=== PATIENT | female | born 1940 | race Caucasian/White ===

== ENCOUNTER → 2016-07-20 | Outpatient (CLI) | payer OTHER ==
[2016-06-08 19:46] VITALS: BP 156/79
--- NOTE | 2016-07-20 16:06 | RAD ---
HISTORY: Shortness of breath, history of TB Study: Two-view chest Comparison: CT scan of the chest done December 07, 2014 Findings: There is a moderate fixed hiatal hernia present with an air-fluid level. The trachea is midline. The heart size is normal. 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 There is a thoracolumbar scoliosis present. The krupa ngs and pleural spaces are clear. IMPRESSION: Fixed hiatal hernia. Thoracolumbar scoliosis. No acute cardiopulmonary disease. Reported By:
== END ==
LOC: RAD 10:22
PROVIDERS: ATTEND Nurse Practitioner Family
DX: R06.09 Other forms of dyspnea (principal); Z86.11 Personal history of tuberculosis
CPT/HCPCS: 71020

== ENCOUNTER → 2016-09-11 | Outpatient (CLI) | payer OTHER ==
[2016-06-08 19:46] VITALS: BP 156/79
--- NOTE | 2016-09-11 12:57 | US ---
HISTORY: Right upper quadrant pain. Study: Right upper quadrant abdominal ultrasound Comparison: None available. Technique: Multiple middleton scale and color flow Doppler images of the right upper quadrant were obtain ed. Findings: The liver is normal in echotexture and size. No focal intraparenchymal mass or intrahepatic biliary ductal dilatation can be observed. The gallbladder fails to demonstrate evidence for cholelithiasi s or layering sludge. The common bile duct is unremarkable measuring 4 mm. No pericholecystic flui d or gallbladder wall thickening can be observed. The right kidney appears normal in size without focal parenchymal mass or nephrolithiasis. The righ t kidney measurers 7.9 cm. No hydronephrosis or perirenal fluid can be observed. The pancreas is l argely obscured by overlying bowel gas. IMPRESSION: No sonographic evidence to suggest cholelithiasis or acute cholecystitis. Reported By:
== END ==
LOC: RAD 09:00
PROVIDERS: ATTEND Nurse Practitioner Family
DX: R10.11 Right upper quadrant pain (principal)
CPT/HCPCS: 76705

== ENCOUNTER 2016-09-14 15:45 | Emergency (ER) | payer OTHER ==
[2016-09-14 16:09] VITALS: BP 146/71; BMI 38.0
--- NOTE | 2016-09-14 16:46 | DR.FBACK ---
HPI - Time Seen Time seen: 16:35 - PCP Primary Care Physician: navdeep duggan - Complaint Chief Complaint Doctor Comments: Patient admits to have scoliosis and she she started having more back pain. She has pain medication but is not taking according to prescription. She is taking it once daily usually. Chief Complaint:: patient has been being worked up for her gallbladder with navdeep duggan. 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, Hysterectomy, Ortho Surgery, Tonsillectomy - Family History History of Family Medical Conditions: Yes Family Medical History: Cancer, Hypertension - Social History Does patient currently use any type of tobacco product: No Have you used tobacco products in the last 12 months: No Type of Tobacco Use: None Does any household member use tobacco: No Alcohol Use: None Do you use any recreational Drugs:: No Lives With: Family Lives Where: Home - infectious screening In the last 2 months have you had wt loss of >10#?: NO Have you had fever, night sweats or hemotysis?: No Have you traveled outside the country in the last 6 months?: No Isolation: Standard ROS - Review of Systems Eyes: No Symptoms Reported ENTM: No Symptoms Reported Respiratoy: No Symptoms Reported Cardiovascular: No Symptoms Reported Gastrointestinal/Abdominal: No Symptoms Reported Genitourinary: No Symptoms Reported Neurological: No Symptoms Reported Musculoskeletal: No Symptoms Reported Integumentary: No Symptoms Reported Hematologic/Lymphatic: No Symptoms Reported Endocrine: No Symptoms Reported Psychiatric: No Symptoms Reported All Other Systems: Reviewed and Negative PE - Vitals Vital Signs: Temp Pulse Resp BP Pulse Ox 09/14/16 16:00 98.7 F 85 18 146/71 100 06/08/16 19:41 156/79 - General Limitations: No Limitations General Appearance: Alert, In No Apparent Distress - Head Head Exam: Normal Inspection, Atraumatic - Eyes Eye exam: Normal Appearance, PERRL, EOMI - ENT ENT Exam: Normal Exam - Chest Chest Inspection: Normal Inspection - Respiratory Respiratory Exam: Normal Lung Sounds Bilat Respiratory Exam: Bilateral Clear to Auscultation - Cardiovascular Cardiovascular Exam: Regular Rate, Normal Rhythm - Abdominal Exam Abdominal Exam: Normal Inspection Abdominal Tenderness: negative: RUQ, RLQ, LUQ, LLQ, Epigastrium, Suprapubic, Diffuse, Mild, Moderate, Severe, Other - Genitourinary External Exam: Female: Deferred : Speculum Exam (Female): Deferred : Bimanual Exam (female): Deferred - Extremities Extremities Exam: Normal Inspection, Full ROM - Back Back Exam: Other (thoracic scoliosis) - Neurological Neurological Exam: Alert, Oriented X3, CN II-XII Intact - Psychiatric Psychiatric Exam: Normal Affect - Skin Skin Exam: Warm, Dry, Intact Course - Reevaluation 1st: Unchanged ROR - XRAY XRAY Interpreted by: Radiologist (Chest: Stable with dextroscoliotic curvature and exaggerated thoracic kyphosis. The cardiopericardial silhouette is normal. There is no focal consolidation,pleural effusion or pneumothorax. The lungs are well inflated. Pulmonary vascularity is normal, Imaged osseous structures are intact. Soft tissues are unremarkable. Impression: No acute cardiopulmonary process.) - Diagnosis Discharge Problem: Kyphoscoliosis - Discharge Plan Condition: Stable - Follow ups/Referrals Follow ups/Referrals: ROSALINDA DUGGAN [Primary Care Provider] - 3 days - Instructions
--- NOTE | 2016-09-14 17:10 | RAD ---
CHEST RADIOGRAPHS PA AND LATERAL VIEWS CLINICAL HISTORY: 75-year-old female with right lower chest wall pain. No history of trauma. COMPARISON: Chest radiographs July 20, 2016. FINDINGS: Stable with dextroscoliotic curvature and exaggerated thoracic kyphosis. The cardiopericar dial silhouette is normal. There is no focal consolidation, pleural effusion or pneumothorax. The krupa ngs are well inflated. Pulmonary vascularity is normal. Imaged osseous structures are intact. Soft t issues are unremarkable. IMPRESSION: No acute cardiopulmonary process. Reported By:
== END 2016-09-14 18:20 | disposition home or self-care (01) ==
LOC: ER 15:45
DX: M41.84 Other forms of scoliosis, thoracic region (principal)
CPT/HCPCS: 71020; 99282

== ENCOUNTER 2017-05-28 00:26 | Emergency (ER) | payer OTHER ==
[2017-05-28] MEDS ORDERED: SOLU-Medrol 125 MG VIAL IM ONE (00:57)
[2017-05-28] MEDS ORDERED: TORADOL 60 MG VIAL IM ONE (00:57)
[2017-05-28] MEDS ORDERED: TORADOL 60 MG VIAL ONE (00:59)
[2017-05-28] MEDS ORDERED: SOLU-Medrol 125 MG VIAL ONE (00:59)
--- NOTE | 2017-05-28 01:07 | DR.EXTPAIN ---
HPI - Time seen Time seen: 00:55 - PCP Primary Care Physician: YANNA - HPI Comment HPI Comment: SHE SAID SINCE THEY MISS HER VEIN IN A BLOOD DRAW, THE ENTIRE ARM HURT ON THE RIFGT SIDE. ARM OR FOREARM IS NOT SWOLLEN. BOTH HANDS ARE SWOLLEN AND RED WELL BOTH FEET. HAND SWELLING IS MORE PROMINENT ON RT SIDE. NO SOB. PATIENT IS SCHDULE TO DO FOLLOW UP VISIT THIS SATURDAY WITH SPECIALIST THAT WILL EVALUATE THE CIRCULATION IN HEREXTREMITIES. - Complaint/Symptoms Chief Complaint Doctor Comments: SWELLING AND DISCOLORATION HANDS AND PAIN RIGHT UPPER EXTREMITY. Chief Complaint:: "I HAD SOME BLOOD DRAWN AND THEY MISSED, AND SINCE MY RIGHT ARM HAS BEEN KILLING ME. I SEEN SAUD RAINES TODAY AND SHE SAID THEY PROBABLY HIT A NERVE. BUT ITS KILLING ME AND I NEED SOMETHING FOR PAIN. I HAVE OXYCODONE 5/ 325MG AT HOME BUT IT DIDN'T TOUCH IT THIS AFTERNOON. 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 Surgery, Hysterectomy, Ortho Surgery, Tonsillectomy - Family History History of Family Medical Conditions: Yes Family Medical History: Cancer, Hypertension - Social History Does patient currently use any type of tobacco product: No Have you used tobacco products in the last 12 months: No Type of Tobacco Use: None Does any household member use tobacco: No Alcohol Use: None Do you use any recreational Drugs:: No Lives With: Family Lives Where: Home - infectious screening Have you traveled outside the country in the last 6 months?: No Isolation: Standard ROS - Review of Systems Constitutional: negative: Chills, Fever, Weakness, Fatigue Eyes: negative: Eye Pain, Discharge ENTM: negative: Ear Pain, Nose Discharge, Nose Congestion, Throat Pain Respiratoy: negative: Productive Cough, Short of Breath, Wheezing, Hemoptysis Cardiovascular: Edema. negative: Chest Pain Gastrointestinal/Abdominal: negative: Abdominal Pain, Diarrhea, Nausea, Vomiting Genitourinary: negative: Dysuria, Frequency, Hematuria Neurological: negative: Weakness Musculoskeletal: Muscle Pain Integumentary: No Symptoms Reported Hematologic/Lymphatic: No Symptoms Reported Endocrine: No Symptoms Reported All Other Systems: Reviewed and Negative PE - Vital Signs Vitals: Temperature 98.3 F Pulse Rate 115 Respiratory Rate 16 Blood Pressure 137/67 O2 Sat by Pulse Oximetry 96 - General Limitations: No Limitations General Appearance: Alert - Head Head Exam: Normal Inspection - Eyes Eye exam: Normal Appearance - ENT ENT Exam: Normal External Ear Exam - Neck Neck Exam: Trachea Midline - Chest Chest Inspection: Symmetric Chest Wall Rise - Respiratory Respiratory Exam: Normal Lung Sounds Bilat Respiratory Exam: Bilateral Clear to Auscultation - Cardiovascular Cardiovascular Exam: Regular Rate, Normal Rhythm, Normal Heart Sounds - Abdominal Exam Abdominal Exam: Normal Bowel Sounds, Soft. negative: Tenderness - Extremities Extremities Exam: Tenderness (HANDS WITH DISCOLATION. NO CHANGE IN TEMP. PULSES INTACT.) - Lower Extremities Neurovascular/Tendon Exam: Normal Capillary Refill Gait Exam: Observed and Normal - Back Back Exam: Normal Inspection - Neurological Neurological Exam: Alert, Oriented X3 - Psychiatric Psychiatric Exam: Normal Affect, Normal Mood - Skin Skin Exam: Erythema MDM - Differential Diagnosis Differential Diagnosis: Other (EDEMA, CELLULITIS, NEUROPATHY) Course - Treatment Treatment: SEE ORDERS. IM TORADOL, PAIN IMPROVING. - Reevaluation 1st: Improved - Education/Counseling Education/Counseling: Patient, Education Educated On: Treatment, Diagnosis, Needs for Follow Up - Diagnosis Discharge Problem: Edema extremities, PVD (peripheral vascular disease) - Discharge Plan Disposition: 01 HOME, SELF-CARE Condition: Stable - Follow ups/Referrals Follow ups/Referrals: NFD,None [Primary Care Provider] - 3 days - Instructions Instructions: Peripheral Edema Additional Instructions: RETURN TO ED IF WORSE.
[2017-05-28 01:10] VITALS: BP 137/67; BMI 36.1
== END 2017-05-28 01:51 | disposition home or self-care (01) ==
LOC: ER 00:26
DX: I73.9 Peripheral vascular disease, unspecified (principal); R60.0 Localized edema
CPT/HCPCS: 96372; 99282; J1885; J2930

== ENCOUNTER 2017-08-06 19:30 | Emergency (ER) | payer OTHER ==
[2017-08-06 19:39] VITALS: BP 134/83; BMI 32.3
== END 2017-08-06 21:26 | disposition left against medical advice (07) ==
LOC: ER 19:43
DX: M54.89 Other dorsalgia (principal)
CPT/HCPCS: 99281

== ENCOUNTER 2017-08-07 09:56 | Inpatient (IN) | payer OTHER ==
--- NOTE | 2017-08-07 10:20 | DR.GENAD ---
HPI - PCP Primary Care Physician: ZURI ACEVES JUICE WEIGHER - HPI Comment HPI Comment: GETTING WORSE. HAVING FEVER. CHEST DISCOMFORT PRESENT. - Complaint/Symptoms Chief Complaint Doctors Comments: GENERALIZE WEAKNESS, ANOREXIA, COUGH, CONGESTION AND DEHYDRATION FOR FEW DAYS. Chief Complaint:: EMS WAS CALLED OUT TO PT HAVING DIFFICULTY BREATHING. WHEN THEY ARRIVED PT C/O C/C/C AND DEHYDRATION WITH WEAKNESS. 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, Hysterectomy, Ortho Surgery, Tonsillectomy - Family History History of Family Medical Conditions: Yes Family Medical History: Cancer, Hypertension - Social History Does patient currently use any type of tobacco product: No Have you used tobacco products in the last 12 months: No Type of Tobacco Use: None Do you use any recreational Drugs:: No Lives With: Family Lives Where: Home - infectious screening In the last 2 months have you had wt loss of >10#?: NO Have you had fever, night sweats or hemotysis?: No Have you traveled outside the country in the last 6 months?: No Isolation: Standard ROS - Review of Systems Constitutional: Weakness, Fatigue. negative: Chills, Fever Eyes: No Symptoms Reported ENTM: negative: Ear Pain, Nose Discharge, Nose Congestion, Throat Pain Respiratoy: Non-Productive Cough, Short of Breath (ON EXERTION). negative: Wheezing, Hemoptysis Cardiovascular: Chest Pain. negative: Edema, Palpitations Gastrointestinal/Abdominal: No Symptoms Reported Genitourinary: No Symptoms Reported Neurological: Weakness, Dizziness Musculoskeletal: No Symptoms Reported Integumentary: No Symptoms Reported Hematologic/Lymphatic: No Symptoms Reported Endocrine: No Symptoms Reported All Other Systems: Reviewed and Negative PE - Vital Signs Vitals: Temperature 99.9 F Pulse Rate 116 Respiratory Rate 20 Blood Pressure 158/85 O2 Sat by Pulse Oximetry 96 - General Limitations: No Limitations General Appearance: Alert - Head Head Exam: Normal Inspection - Eyes Eye exam: Normal Appearance - ENT ENT Exam: Normal External Ear Exam External Ear Exam: Normal External Inspection TM/Canal Exam: Bilateral Normal Nose Exam: Normal Nose Exam Mouth Exam: Normal Inspection Throat Exam: Normal Inspection - Neck Neck Exam: Trachea Midline - Chest Chest Inspection: Symmetric Chest Wall Rise - Respiratory Respiratory Exam: Normal Lung Sounds Bilat Respiratory Exam: Bilateral Clear to Auscultation - Cardiovascular Cardiovascular Exam: Regular Rate, Normal Rhythm, Normal Heart Sounds - Abdominal Exam Abdominal Exam: Normal Bowel Sounds, Soft. negative: Tenderness - Extremities Extremities Exam: Normal Inspection - Back Back Exam: Normal Inspection - Neurologic Neurological Exam: Alert, Oriented X3 - Psychiatric Psychiatric Exam: Normal Affect, Normal Mood - Skin Skin Exam: Normal Color MDM - Additional Information Additional Information Obtained From: Family - Differential Diagnosis Differential Diagnosis: GENERALIZE WEAKNESS, PNEUMONIA, UTI, MD Course - Treatment Treatment: SEE ORDERS. - Education/Counseling Education/Counseling: Patient, Family, Education Educated On: Diagnosis, Needs for Follow Up ROR - Labs Reviewed Laboratory Results Reviewed?: Yes Result Diagrams: 08/08/17 05:13 08/08/17 05:13 Laboratory: WBC 9.4 X10^3/uL (3.6-10.0) 08/07/17 10:35 RBC 3.91 X10^6/uL (3.5-5.4) 08/07/17 10:35 Hgb 11.1 g/dL (12.0-16.0) L 08/07/17 10:35 Hct 33.6 % (36.0-47.0) L 08/07/17 10:35 MCV 86.0 fL (80.0-100.0) 08/07/17 10:35 MCH 28.3 pg (27.0-34.0) 08/07/17 10:35 MCHC 32.9 g/dL (33.0-35.0) L 08/07/17 10:35 RDW 14.6 % (11.6-16.5) 08/07/17 10:35 Plt Count 244 X10^3/uL (150.0-450.0) 08/07/17 10:35 MPV 7.4 fL (7.4-11.0) 08/07/17 10:35 Neut % (Auto) 65.3 % (42.0-75.0) 08/07/17 10:35 Lymph % (Auto) 21.4 % (21.0-51.0) 08/07/17 10:35 Dickenson % (Auto) 12.7 % (0.0-13.0) 08/07/17 10:35 Eos % (Auto) 0.2 % (0.9-2.9) L 08/07/17 10:35 Baso % (Auto) 0.4 % (0.2-1.0) 08/07/17 10:35 Neut # (Auto) 6.1 x10^3/uL (2.2-4.8) H 08/07/17 10:35 Lymph # (Auto) 2.0 X10^3/uL (1.3-2.9) 08/07/17 10:35 Dickenson # (Auto) 1.2 x10^3/uL (0.3-0.8) H 08/07/17 10:35 Eos # (Auto) 0.0 x10^3/uL (0.0-0.2) 08/07/17 10:35 Baso # (Auto) 0.0 X10^3/uL (0.0-0.1) 08/07/17 10:35 Absolute Nucleated RBC 0.0 /100WBC 08/07/17 10:35 - XRAY XRAY Interpreted by: Radiologist XRAY Findings: REPORT DISCUSS WITH PATIENT. - EKG Rhythm: NSR (EKG NOTED) - Diagnosis Discharge Problem: Abnormal cardiac enzyme level, Generalized weakness Pneumonia Qualifiers: Pneumonia type: due to unspecified organism Laterality: left Lung location: lower lobe of lung Qualified Code(s): J18.1 - Lobar pneumonia, unspecified organism - Discharge Plan Disposition: ADMITTED INPATIENT Condition: Stable - Follow ups/Referrals - Instructions
[2017-08-07 10:45] LABS: BASOPHILS % (AUTO) 0.4 % (0.2-1.0); EOSINOPHILS % (AUTO) 0.2 % (0.9-2.9); HEMATOCRIT 33.6 % (36.0-47.0); HEMOGLOBIN 11.1 g/dL (12.0-16.0); LYMPHOCYTES % (AUTO) 21.4 % (21.0-51.0); MEAN CORPUSCULAR HEMOGLOBIN 28.3 pg (27.0-34.0); MEAN CORPUSCULAR HGB CONC 32.9 g/dL (33.0-35.0); MEAN PLATELET VOLUME 7.4 fL (7.4-11.0); MONOCYTES # (AUTO) 1.2 x10^3/uL (0.3-0.8); MONOCYTES % (AUTO) 12.7 % (0.0-13.0); NEUTROPHILS # (AUTO) 6.1 x10^3/uL (2.2-4.8); NEUTROPHILS % (AUTO) 65.3 % (42.0-75.0); PLATELET COUNT 244 X10^3/uL (150.0-450.0); RED BLOOD COUNT 3.91 X10^6/uL (3.5-5.4); RED CELL DISTRIBUTION WIDTH 14.6 % (11.6-16.5); WHITE BLOOD COUNT 9.4 X10^3/uL (3.6-10.0)
[2017-08-07 11:00] LABS: BLOOD UREA NITROGEN 9 mg/dL (7-18); CALCIUM 8.9 mg/dL (8.5-10.1); CARBON DIOXIDE 25.4 mmol/L (21-32); CHLORIDE 100 mmol/L (98-107); CREATININE 0.94 mg/dL (0.55-1.02); SODIUM 136 mmol/L (136-145); TROPONIN I 0.09 ng/mL (0-1.5); eGFR BLACK RACES > 60 (>60); eGFR NON BLACK RACES > 60 (>60)
[2017-08-07 11:06] LABS: ALANINE AMINOTRANSFERASE 11 Units/L (12-78); ALBUMIN 2.3 g/dL (3.4-5.0); ALKALINE PHOSPHATASE 83 Units/L (46-116); ASPARTATE AMINO TRANSFERASE 23 Units/L (15-37); COR CA(FOR HYPOALB) 10.3 mg/dL (8.5-10.1); CREATINE KINASE 30 Units/L (26-192); CREATINE KINASE MB 1.8 ng/mL (0-4.0); TOTAL PROTEIN 6.8 g/dL (6.4-8.2)
--- NOTE | 2017-08-07 11:09 | RAD ---
HISTORY: Cough and shortness of breath. Study: Portable chest. Comparison: Chest x-ray dated September 14, 2016. Findings: The trachea is midline. The cardiac silhouette is at the upper limits of normal. Small bilateral pl eural effusions with associated compressive atelectasis versus infiltrate. No obvious pneumothorax. The bony thorax is unremarkable. IMPRESSION: Small bilateral pleural effusions with associated compressive atelectasis versus infiltra te. Reported By:
[2017-08-07 13:00] LABS: LACTIC ACID 1.4 mmol/L (0.4-2.0)
[2017-08-07 13:02] LABS: CKMB % 5.5 % (<4); CREATINE KINASE MB 1.8 ng/mL (0-4.0); TROPONIN I 0.07 ng/mL (0-1.5)
[2017-08-07] MEDS ORDERED: NS 1/2 1000 ML IV 1,000 ML IV ONE ×2 (13:46→20:00)
[2017-08-07] MEDS: NS 1/2 1000 ML IV 1,000 ML IV SCH (13:47)
[2017-08-07] MEDS ORDERED: ROCEPHIN 1 GM IV PREMIX 1 GM/50 ML IV.SOLN. IV ONE (13:50)
[2017-08-07] MEDS ORDERED: SALINE 3% 15 ML NEB TX ONE (14:00)
[2017-08-07] MEDS ORDERED: SALINE 3% 15 ML NEB TX NEB ONE (14:05)
[2017-08-07] MEDS: ROCEPHIN 1 GM IV PREMIX IV SCH (14:47)
[2017-08-07] MEDS: DUONEB 0.5 MG/3 MG NEB SCH ×2 (16:37→21:53)
[2017-08-07] MEDS: ROBITUSSIN DM PO SCH ×2 (17:30→20:43)
[2017-08-07 18:19] LABS: CKMB % 5.5 % (<4); CREATINE KINASE MB 2.1 ng/mL (0-4.0); TROPONIN I 0.07 ng/mL (0-1.5)
[2017-08-07] MEDS ORDERED: PERCOCET TAB 5/325 MG PO PRN (18:37)
[2017-08-07] MEDS: VIBRAMYCIN 100 MG in NS 100 ML IV + SPIKE MINIBAG* 100 ML IV SCH (20:43)
[2017-08-07 23:45] LABS: CKMB % 5.5 % (<4); CREATINE KINASE MB 1.7 ng/mL (0-4.0); TROPONIN I 0.08 ng/mL (0-1.5)
[2017-08-08] MEDS: DUONEB 0.5 MG/3 MG NEB SCH ×6 (00:53→21:12)
[2017-08-08] MEDS: NS 1/2 1000 ML IV 1,000 ML IV SCH ×3 (04:15→19:22)
[2017-08-08] MEDS: NEURONTIN CAP 300 MG PO SCH ×3 (06:01→21:48)
--- NOTE | 2017-08-08 06:07 | RAD ---
HISTORY: Cough, shortness of breath Study: Chest AP portable Comparison: 08/07/2017 Findings: The heart is enlarged. No congestive heart failure is noted. No acute alveolar infiltrates are identi fied. Blunting of left costophrenic angle suggests a small left pleural effusion. The bony thorax is unremarkable. IMPRESSION: Moderate cardiomegaly without congestive heart failure Small left pleural effusion Reported By:
[2017-08-08 06:39] LABS: BASOPHILS % (AUTO) 0.3 % (0.2-1.0); EOSINOPHILS % (AUTO) 0.4 % (0.9-2.9); HEMATOCRIT 30.4 % (36.0-47.0); HEMOGLOBIN 10.3 g/dL (12.0-16.0); LYMPHOCYTES # (AUTO) 2.2 X10^3/uL (1.3-2.9); LYMPHOCYTES % (AUTO) 21.5 % (21.0-51.0); MEAN CORPUSCULAR HGB CONC 33.9 g/dL (33.0-35.0); MEAN CORPUSCULAR VOLUME 85.4 fL (80.0-100.0); MEAN PLATELET VOLUME 7.8 fL (7.4-11.0); MONOCYTES # (AUTO) 1.2 x10^3/uL (0.3-0.8); NEUTROPHILS # (AUTO) 6.7 x10^3/uL (2.2-4.8); NEUTROPHILS % (AUTO) 65.8 % (42.0-75.0); PLATELET COUNT 229 X10^3/uL (150.0-450.0); RED BLOOD COUNT 3.56 X10^6/uL (3.5-5.4); RED CELL DISTRIBUTION WIDTH 14.8 % (11.6-16.5); WHITE BLOOD COUNT 10.2 X10^3/uL (3.6-10.0)
[2017-08-08 06:59] LABS: ALANINE AMINOTRANSFERASE 8 Units/L (12-78); ALKALINE PHOSPHATASE 75 Units/L (46-116); ASPARTATE AMINO TRANSFERASE 21 Units/L (15-37); BLOOD UREA NITROGEN 10 mg/dL (7-18); CALCIUM 8.6 mg/dL (8.5-10.1); CARBON DIOXIDE 23.7 mmol/L (21-32); CHLORIDE 101 mmol/L (98-107); COR CA(FOR HYPOALB) 10.2 mg/dL (8.5-10.1); CREATININE 0.79 mg/dL (0.55-1.02); MAGNESIUM 1.3 mg/dL (1.7-2.9); SODIUM 135 mmol/L (136-145); TOTAL PROTEIN 6.4 g/dL (6.4-8.2); eGFR BLACK RACES > 60 (>60); eGFR NON BLACK RACES > 60 (>60)
[2017-08-08] MEDS ORDERED: LEXAPRO ONE (08:34)
[2017-08-08] MEDS: VIBRAMYCIN 100 MG in NS 100 ML IV + SPIKE MINIBAG* 100 ML IV SCH ×2 (08:49→21:54)
[2017-08-08] MEDS: MICRO K EXTEN CAP 10 MEQ PO SCH ×4 (08:49→21:46)
[2017-08-08] MEDS: ROBITUSSIN DM PO SCH ×4 (08:49→21:48)
[2017-08-08] MEDS: MAG-OX TAB PO SCH (08:50)
[2017-08-08] MEDS: LEXAPRO PO SCH (08:50)
[2017-08-08] MEDS: PriLOSEC PO SCH ×2 (08:50→21:47)
[2017-08-08] MEDS: SYNTHROID 100 mcg TAB PO SCH (08:50)
[2017-08-08] MEDS: HYDROCHLOROTHIAZIDE 25 MG TAB PO SCH (08:50)
[2017-08-08] MEDS: ROCEPHIN 1 GM IV PREMIX IV SCH (08:51)
[2017-08-08] MEDS ORDERED: OMEPRAZOLE 40 MG PO SCH (09:00)
[2017-08-08] MEDS ORDERED: PATIENT'S HOME MEDICATION (Potassium Chloride [Potassium Chloride] 1 TAB) PO SCH (09:00)
[2017-08-08] MEDS ORDERED: PATIENT'S HOME MEDICATION (Escitalopram Oxalate [Escitalopram Oxalate] 1 TAB) PO SCH (09:00)
[2017-08-08] MEDS: DULOXETINE HCL PO SCH (10:28)
[2017-08-08] MEDS: ASPIRIN EC 81 MG PO SCH (12:00)
--- NOTE | 2017-08-08 16:27 | DR.H&P ---
H&P - History & Physical for Day of: H&P Date: 08/07/17 - Chief Complaint Chief Complaint: SHORT OF BREATH, C/C/C - Allergies Allergies/Adverse Reactions: Allergies Allergy/AdvReac Type Severity Reaction Status Date / Time naproxen [From Naprosyn] Allergy Verified 05/28/17 00:35 - History of Present Illness History of Present Illness: IS A 76 YEAR OLD PATIENT OF OURS WHO PRESENTED TO THE ER WITH COMPLAINTS OF SHORTNESS OF BREATH AND DIFFICULTY BREATHING. PATIENT ALSO COMPLAINTED OF COUGH, COLD, AND CONGESTION WELL GENERALIZED WEAKNESS. ON ARRIVAL, VITALS WERE 99.9-116-20-96%-158/85. ABNORMAL LAB VALUES INCLUDE THE FOLLOWING: HGB 11.1, HCT 33.6, ALT 11, CRP 92.00, ALBUMIN 2.3. CARDIAC ENZYMES WITHIN NORMAL LIMITS. BLOOD CULTURES ARE PENDING. A CHEST XRAY WAS OBTAINED AND REVEALED SMALL BILATERAL PLEURAL EFFUSIONS WITH ASSOCIATED COMPRESSIVE ATELECTASIS VERSUS INFILTRATE. EKG REVEALED SINUS TACHYCARDIA WITH HR 115. SHE WAS GIVEN PERCOCET 1 TABLET WELL ROCEPHIN 1GM IV. SHE WAS ADMITTED TO THE HOSPITAL ON THE PNEUMONIA PROTOCOL. WE WILL OBTAIN SERIAL CARDIAC ENZYMES AND EKGS. WE PLAN TO FOLLOW UP WITH AM LABS AND CONTINUE TO MONITOR. 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, Hysterectomy, Ortho Surgery, Tonsillectomy - Family History Family Medical History: Cancer, Hypertension - Social History Does patient currently use any type of tobacco product: No Have you used tobacco products in the last 12 months: No Type of Tobacco Use: None Does any household member use tobacco: No Alcohol Use: None Drug Use: Prescription Drugs - Medications Home Medications: Duloxetine HCl 1 tab PO DAILY 08/07/17 [History Confirmed 08/07/17] Escitalopram Oxalate 1 tab PO DAILY 08/07/17 [History Confirmed 08/07/17] Hydrochlorothiazide 1 tab PO DAILY 08/07/17 [History Confirmed 08/07/17] Levothyroxine Sodium [SYNTHROID 100 mcg *] 1 tab PO DAILY 08/07/17 [History Confirmed 08/07/17] Magnesium Oxide [MAG-OX TAB 400 MG *] 1 tab PO DAILY 08/07/17 [History Confirmed 08/07/17] Oxycodone HCl/Acetaminophen [Percocet 5-325 mg Tablet] 1 tab PO PRN PRN [History Confirmed 08/07/17] Potassium Chloride 1 tab PO QID 08/07/17 [History Confirmed 08/07/17] - Review of Systems Constitutional: Weakness, Malaise Eyes: No Symptoms Reported ENT: Nose Congestion Respiratory: Cough, Shortness of Breath, Wheezing Cardiovascular: No Symptoms Reported Gastrointestinal: No Symptoms Reported Genitourinary: No Symptoms Reported Musculoskeletal: No Symptoms Reported Skin: No Symptoms Reported Neurological: Weakness - Physical Exam Vital Signs: Temperature 98.8 F Pulse Rate [Right Brachial] 71 Pulse Rate 108 Respiratory Rate 20 Blood Pressure [Right Arm] 121/54 Blood Pressure 158/85 O2 Sat by Pulse Oximetry 97 Oriented: Normal Eyes: Normal Ear: Normal Nose: Normal Throat: Normal Respiratory: Wheezes Throughout Cardiovascular: Tachycardia : Normal Auscultation: Bowel Sounds: Normal Palpation: Normal Tenderness: Normal Skin: Normal Musculoskeletal: Normal Psychiatric: Normal Mood Description: Calm Affect: Normal Speech Pattern: Clear - Assessment/Plan (1) Pneumonia Qualifiers: Pneumonia type: due to unspecified organism Laterality: left Lung location: lower lobe of lung Qualified Code(s): J18.1 - Lobar pneumonia, unspecified organism Status: Acute Plan: DOXYCYCLINE, ROCEPHIN 1GM IV DAILY, SUPPLEMENTAL OXYGEN, ROBITUSSIN, TUSSIONEX, RESPIRATORY TREATMENTS, CONTINUE TO MONITOR (2) Generalized weakness Status: Acute
[2017-08-08] MEDS ORDERED: NS 1/2 1000 ML IV 1,000 ML IV ONE (19:04)
[2017-08-08] MEDS: RESTORIL CAP 30 MG PO SCH (21:47)
[2017-08-08 21:51] LABS: BILIRUBIN,URINE NEGATIVE (NEGATIVE); BLOOD/HEMOGLOBIN,URINE NEGATIVE (NEGATIVE); GLUCOSE, URINE NEGATIVE (NEGATIVE); KETONES,URINE NEGATIVE (NEGATIVE); LEUKOCYTE ESTERASE ,URINE NEGATIVE (NEGATIVE); NITRITES,URINE NEGATIVE (NEGATIVE); PROTEIN,URINE NEGATIVE (NEGATIVE); UROBILINOGEN,URINE NORMAL (NORMAL)
[2017-08-08 21:52] LABS: APPEARANCE,URINE CLEAR (CLEAR); COLOR,URINE YELLOW (YELLOW)
[2017-08-08] MEDS ORDERED: K-LYTE EFFERVESCENT PO PRN (22:46)
[2017-08-08] MEDS ORDERED: K-RIDER 10 MEQ/NS 100 ML 10 MEQ/100 ML BAG IV PRN (22:46)
[2017-08-08] MEDS ORDERED: POTASSIUM CHLORIDE LIQ 20 MEQ UDC PO PRN (22:46)
[2017-08-08] MEDS ORDERED: POTASSIUM CHL 60 MEQ/NS 0.45% 500 ML IV PRN (22:46)
[2017-08-09] MEDS: MAGNESIUM SULFATE 1 GM/100 mL PREMIX 1 GM/100 ML BAG IV PRN ×2 (00:50→03:49)
[2017-08-09] MEDS: DUONEB 0.5 MG/3 MG NEB SCH ×6 (01:35→20:47)
[2017-08-09] MEDS: NEURONTIN CAP 300 MG PO SCH ×3 (05:32→20:59)
--- NOTE | 2017-08-09 05:53 | RAD ---
Examination: AP chest History: Cough, SOB Comparison 08/08/2017 Findings: Stable heart size. The diaphragm surfaces and costophrenic angles are now obscured. Central vascular congestion has increased. No pneumothorax seen. Impression: Increasing bibasal densities consistent with airspace disease and small pleural effusions . The findings are suggestive of CHF; associated inflammatory process may contribute. Reported By:
[2017-08-09 06:08] LABS: BASOPHILS % (AUTO) 0.2 % (0.2-1.0); EOSINOPHILS # (AUTO) 0.1 x10^3/uL (0.0-0.2); HEMATOCRIT 29.7 % (36.0-47.0); LYMPHOCYTES # (AUTO) 2.3 X10^3/uL (1.3-2.9); LYMPHOCYTES % (AUTO) 17.2 % (21.0-51.0); MEAN CORPUSCULAR HEMOGLOBIN 28.3 pg (27.0-34.0); MEAN CORPUSCULAR HGB CONC 33.7 g/dL (33.0-35.0); MEAN CORPUSCULAR VOLUME 84.1 fL (80.0-100.0); MONOCYTES # (AUTO) 1.4 x10^3/uL (0.3-0.8); MONOCYTES % (AUTO) 10.5 % (0.0-13.0); NEUTROPHILS # (AUTO) 9.4 x10^3/uL (2.2-4.8); NEUTROPHILS % (AUTO) 71.1 % (42.0-75.0); PLATELET COUNT 242 X10^3/uL (150.0-450.0); RED BLOOD COUNT 3.53 X10^6/uL (3.5-5.4); RED CELL DISTRIBUTION WIDTH 14.7 % (11.6-16.5); WHITE BLOOD COUNT 13.2 X10^3/uL (3.6-10.0)
[2017-08-09 06:34] LABS: ALANINE AMINOTRANSFERASE 8 Units/L (12-78); ALBUMIN 1.8 g/dL (3.4-5.0); ALKALINE PHOSPHATASE 71 Units/L (46-116); ASPARTATE AMINO TRANSFERASE 27 Units/L (15-37); BLOOD UREA NITROGEN 9 mg/dL (7-18); CALCIUM 8.8 mg/dL (8.5-10.1); CARBON DIOXIDE 27.3 mmol/L (21-32); CHLORIDE 98 mmol/L (98-107); COR CA(FOR HYPOALB) 10.6 mg/dL (8.5-10.1); CREATININE 0.74 mg/dL (0.55-1.02); SODIUM 133 mmol/L (136-145); TOTAL PROTEIN 6.2 g/dL (6.4-8.2); eGFR BLACK RACES > 60 (>60); eGFR NON BLACK RACES > 60 (>60)
[2017-08-09] MEDS ORDERED: LEXAPRO ONE (09:13)
[2017-08-09] MEDS: HYDROCHLOROTHIAZIDE 25 MG TAB PO SCH (09:19)
[2017-08-09] MEDS: ASPIRIN EC 81 MG PO SCH (09:19)
[2017-08-09] MEDS: MICRO K EXTEN CAP 10 MEQ PO SCH ×4 (09:20→20:57)
[2017-08-09] MEDS: ROCEPHIN 1 GM IV PREMIX IV SCH (09:20)
[2017-08-09] MEDS: DULOXETINE HCL PO SCH (09:20)
[2017-08-09] MEDS: MAG-OX TAB PO SCH (09:20)
[2017-08-09] MEDS: LEXAPRO PO SCH (09:20)
[2017-08-09] MEDS: PriLOSEC PO SCH ×2 (09:21→20:58)
[2017-08-09] MEDS: SYNTHROID 100 mcg TAB PO SCH (09:21)
[2017-08-09] MEDS: VIBRAMYCIN 100 MG in NS 100 ML IV + SPIKE MINIBAG* 100 ML IV SCH ×2 (09:21→21:14)
[2017-08-09] MEDS: ROBITUSSIN DM PO SCH ×4 (09:21→20:59)
[2017-08-09] MEDS: LASIX IVP SCH ×2 (11:22→20:56)
[2017-08-09] MEDS ORDERED: CALAN IVP ONE ×2 (15:11→22:15)
[2017-08-09] MEDS ORDERED: MORPHINE SULFATE INJ 2 MG INJ ONE (15:15)
[2017-08-09] MEDS ORDERED: MORPHINE SULFATE INJ 2 MG INJ IVP ONE (15:30)
[2017-08-09 16:04] LABS: CKMB % 4.8 % (<4); CREATINE KINASE MB 1.5 ng/mL (0-4.0); TROPONIN I 0.06 ng/mL (0-1.5)
[2017-08-09] MEDS: NS 1/2 1000 ML IV 1,000 ML IV SCH (16:10)
[2017-08-09 16:52] LABS: BILIRUBIN,URINE NEGATIVE (NEGATIVE); BLOOD/HEMOGLOBIN,URINE NEGATIVE (NEGATIVE); GLUCOSE, URINE NEGATIVE (NEGATIVE); KETONES,URINE NEGATIVE (NEGATIVE); LEUKOCYTE ESTERASE ,URINE NEGATIVE (NEGATIVE); NITRITES,URINE NEGATIVE (NEGATIVE); PROTEIN,URINE NEGATIVE (NEGATIVE); UROBILINOGEN,URINE NORMAL (NORMAL)
[2017-08-09 16:55] LABS: APPEARANCE,URINE CLEAR (CLEAR); COLOR,URINE YELLOW (YELLOW)
--- NOTE | 2017-08-09 19:51 | RAD ---
Chest AP portable Indication: Central line placement Comparison: 08/09/2017 radiograph from earlier Findings: There is left subclavian catheter tip over the SVC. No large pneumothorax seen. Heart size is prominent. There are bilateral effusions. There is increased interstitial markings. Impression: Cardiomegaly, pulmonary edema with effusions, compatible with CHF. New central line proje cts as expected without large pneumothorax Reported By:
[2017-08-09] MEDS: CALAN SR 120 MG PO SCH (20:55)
[2017-08-09] MEDS: RESTORIL CAP 30 MG PO SCH (20:59)
[2017-08-09] MEDS: DOPAMINE IV PREMIX 400 MG/250 ML 400 MG/250 ML BAG IV PRN (22:17)
[2017-08-09 22:40] LABS: CREATINE KINASE 25 Units/L (26-192); CREATINE KINASE MB < 1.0 ng/mL (0-4.0); TROPONIN I 0.13 ng/mL (0-1.5)
[2017-08-10] MEDS ORDERED: NS 1/2 1000 ML IV 1,000 ML IV ONE (03:38)
[2017-08-10 04:44] LABS: BASOPHILS % (AUTO) 0.1 % (0.2-1.0); EOSINOPHILS % (AUTO) 0.3 % (0.9-2.9); HEMATOCRIT 30.7 % (36.0-47.0); HEMOGLOBIN 10.2 g/dL (12.0-16.0); LYMPHOCYTES # (AUTO) 1.9 X10^3/uL (1.3-2.9); LYMPHOCYTES % (AUTO) 12.1 % (21.0-51.0); MEAN CORPUSCULAR HEMOGLOBIN 28.2 pg (27.0-34.0); MEAN CORPUSCULAR HGB CONC 33.3 g/dL (33.0-35.0); MEAN CORPUSCULAR VOLUME 84.8 fL (80.0-100.0); MEAN PLATELET VOLUME 8.1 fL (7.4-11.0); MONOCYTES # (AUTO) 1.6 x10^3/uL (0.3-0.8); MONOCYTES % (AUTO) 10.3 % (0.0-13.0); NEUTROPHILS % (AUTO) 77.2 % (42.0-75.0); PLATELET COUNT 275 X10^3/uL (150.0-450.0); RED BLOOD COUNT 3.62 X10^6/uL (3.5-5.4); RED CELL DISTRIBUTION WIDTH 14.8 % (11.6-16.5); WHITE BLOOD COUNT 15.6 X10^3/uL (3.6-10.0)
[2017-08-10 05:01] LABS: ALANINE AMINOTRANSFERASE 7 Units/L (12-78); ALBUMIN 1.8 g/dL (3.4-5.0); ALKALINE PHOSPHATASE 82 Units/L (46-116); ASPARTATE AMINO TRANSFERASE 22 Units/L (15-37); BLOOD UREA NITROGEN 10 mg/dL (7-18); CARBON DIOXIDE 30.3 mmol/L (21-32); CHLORIDE 97 mmol/L (98-107); CKMB % 5.8 % (<4); COR CA(FOR HYPOALB) 10.8 mg/dL (8.5-10.1); COR NA(FOR HYPERGLY) 134 mmol/L (136-145); CREATINE KINASE 24 Units/L (26-192); CREATINE KINASE MB 1.4 ng/mL (0-4.0); CREATININE 0.95 mg/dL (0.55-1.02); SODIUM 133 mmol/L (136-145); TOTAL PROTEIN 6.6 g/dL (6.4-8.2); TROPONIN I 0.11 ng/mL (0-1.5); eGFR BLACK RACES > 60 (>60); eGFR NON BLACK RACES > 60 (>60)
[2017-08-10] MEDS: NEURONTIN CAP 300 MG PO SCH ×3 (05:43→21:29)
[2017-08-10] MEDS: DOPAMINE IV PREMIX 400 MG/250 ML 400 MG/250 ML BAG IV PRN ×2 (07:28→21:25)
--- NOTE | 2017-08-10 07:43 | RAD ---
HISTORY: Shortness of breath Study: Single-view chest Comparison: Yesterday Findings: The trachea is midline. The cardiac silhouette is enlarged but stable as is a left-sided central meka ous catheter. The lungs demonstrate mild persistent pulmonary vascular congestion with bilateral lay ering effusions.. The bony thorax is unremarkable. IMPRESSION: 1. Stable mild interstitial edema with bibasilar effusions. Reported By:
[2017-08-10] MEDS ORDERED: LEXAPRO ONE (07:59)
[2017-08-10] MEDS: VIBRAMYCIN 100 MG in NS 100 ML IV + SPIKE MINIBAG* 100 ML IV SCH ×2 (08:13→21:27)
[2017-08-10] MEDS: ROCEPHIN 1 GM IV PREMIX IV SCH (08:18)
[2017-08-10] MEDS: LASIX IVP SCH ×2 (08:19→21:25)
[2017-08-10] MEDS: PriLOSEC PO SCH ×2 (08:23→21:28)
[2017-08-10] MEDS: MICRO K EXTEN CAP 10 MEQ PO SCH ×4 (08:23→21:31)
[2017-08-10] MEDS: ASPIRIN EC 81 MG PO SCH (08:23)
[2017-08-10] MEDS: SYNTHROID 100 mcg TAB PO SCH (08:24)
[2017-08-10] MEDS: MAG-OX TAB PO SCH (08:24)
[2017-08-10] MEDS: HYDROCHLOROTHIAZIDE 25 MG TAB PO SCH (08:24)
[2017-08-10] MEDS: NS 1/2 1000 ML IV 1,000 ML IV SCH ×2 (08:25→21:24)
[2017-08-10] MEDS: LEXAPRO PO SCH (08:25)
[2017-08-10] MEDS: ROBITUSSIN DM PO SCH ×4 (08:26→21:31)
[2017-08-10] MEDS: DULOXETINE HCL PO SCH (08:28)
[2017-08-10] MEDS: XOPENEX 1.25 MG/3 ML NEBULE NEB SCH ×4 (08:30→20:29)
[2017-08-10] MEDS: POTASSIUM CHL 40 MEQ/NS 0.45% 500 ML IV PRN ×2 (10:31→21:25)
[2017-08-10] MEDS ORDERED: NS 500 ML IV 500 ML IV ONE (10:39)
[2017-08-10] MEDS: CALAN SR 120 MG PO SCH (14:07)
[2017-08-10] MEDS ORDERED: BUTT CREAM (COMPOUND) ONE (20:10)
--- NOTE | 2017-08-10 20:32 | PCM.PROG ---
Progress Note - Progress Note for Day of Date: 08/08/17 - Subjective Subjective: IS BEING TREATED FOR PNEUMONIA AND SHORTNESS OF BREATH. SHE IS ALERT AND ORIENTED, LYING IN BED ON MORNING ROUNDS. SHE CONTINUES WITH COUGH AND SOB. EXAM REVEALS SCATTERED WHEEZING AND RHONCHI TO BILATERAL LUNG SAL. VITALS STABLE. SHE IS HEMODYNAMICALLY STABLE. CARDIAC ENZYMES HAVE BEEN WITHIN NORMAL LIMITS. TODAYS CHEST XRAY REVEALS MODERATE CARDIOMEGALY WITHOUT CONGESTIVE HEART FAILURE. SMALL LEFT PLEURAL EFFUSION. TODAY, WE WILL HEPLOCK IV FLUIDS AND START LASIX 40MG IV BID. OTHERWISE, WE WILL FOLLOW UP WITH AM LABS AND CONTINUE TO MONITOR PATIENT. - Past Medical Family Social History Past Med/Fam/Surg Hx: No changes since H&P Allergies: Allergies naproxen [From Naprosyn] Allergy (Verified 05/28/17 00:35) - Review of Systems ROS: No change since H&P - Vital Signs and I&O's Vital Signs: Temperature 99.7 F Pulse Rate [Right Brachial] 80 Pulse Rate 75 Respiratory Rate 27 Blood Pressure [Right Arm] 98/51 Blood Pressure 158/85 O2 Sat by Pulse Oximetry 99 Intake and Output: Intake & Output 08/08/17 08/09/17 08/10/17 08/11/17 11:59 11:59 11:59 11:59 Intake Total 5277 391 4832 1342 Output Total 1500 850 Balance 1150 540 722 492 - Physical Exam Oriented: Normal Eyes: Normal Ear: Normal Nose: Normal Throat: Normal Respiratory: Generalized, Wheezes, Rhonchi Cardiovascular: Tachycardia : Normal Auscultation: Bowel Sounds: Normal Palpation: Normal Tenderness: Normal Skin: Normal Musculoskeletal: Normal Psychiatric: Normal Mood Description: Calm Affect: Normal Speech Pattern: Clear, Appropriate - Laboratory and Diagnostics Result Diagrams: 08/10/17 03:40 08/10/17 19:00 Labs: 08/09/17 15:45 Urine,Clean Catch Urine Culture - Preliminary 08/07/17 12:22 Blood Blood Culture - Preliminary 08/07/17 12:20 Blood Blood Culture - Preliminary Laboratory WBC 15.6 X10^3/uL (3.6-10.0) H 08/10/17 03:40 RBC 3.62 X10^6/uL (3.5-5.4) 08/10/17 03:40 Hgb 10.2 g/dL (12.0-16.0) L 08/10/17 03:40 Hct 30.7 % (36.0-47.0) L 08/10/17 03:40 MCV 84.8 fL (80.0-100.0) 08/10/17 03:40 MCH 28.2 pg (27.0-34.0) 08/10/17 03:40 MCHC 33.3 g/dL (33.0-35.0) 08/10/17 03:40 RDW 14.8 % (11.6-16.5) 08/10/17 03:40 Plt Count 275 X10^3/uL (150.0-450.0) 08/10/17 03:40 MPV 8.1 fL (7.4-11.0) 08/10/17 03:40 Neut % (Auto) 77.2 % (42.0-75.0) H 08/10/17 03:40 Lymph % (Auto) 12.1 % (21.0-51.0) L 08/10/17 03:40 Josephine % (Auto) 10.3 % (0.0-13.0) 08/10/17 03:40 Eos % (Auto) 0.3 % (0.9-2.9) L 08/10/17 03:40 Baso % (Auto) 0.1 % (0.2-1.0) L 08/10/17 03:40 Neut # (Auto) 12.0 x10^3/uL (2.2-4.8) H 08/10/17 03:40 Lymph # (Auto) 1.9 X10^3/uL (1.3-2.9) 08/10/17 03:40 Josephine # (Auto) 1.6 x10^3/uL (0.3-0.8) H 08/10/17 03:40 Eos # (Auto) 0.0 x10^3/uL (0.0-0.2) 08/10/17 03:40 Baso # (Auto) 0.0 X10^3/uL (0.0-0.1) 08/10/17 03:40 Absolute Nucleated RBC 0.0 /100WBC 08/10/17 03:40 Sodium 133 mmol/L (136-145) L 08/10/17 03:40 Corrected Sodium 134 mmol/L (136-145) L 08/10/17 03:40 Potassium 3.1 mmol/L (3.5-5.1) L 08/10/17 19:00 Chloride 97 mmol/L (98-107) L 08/10/17 03:40 Carbon Dioxide 30.3 mmol/L (21-32) 08/10/17 03:40 BUN 10 mg/dL (7-18) 08/10/17 03:40 Creatinine 0.95 mg/dL (0.55-1.02) 08/10/17 03:40 Est GFR (MDRD) Af Amer > 60 (>60) 08/10/17 03:40 Est GFR (MDRD) Non-Af > 60 (>60) 08/10/17 03:40 Glucose 140 mg/dL (65-99) H 08/10/17 03:40 Lactic Acid 1.4 mmol/L (0.4-2.0) 08/07/17 10:35 Calcium 9.0 mg/dL (8.5-10.1) 08/10/17 03:40 Corrected Calcium 10.8 mg/dL (8.5-10.1) H 08/10/17 03:40 Magnesium 1.6 mg/dL (1.7-2.9) L 08/10/17 03:40 Total Bilirubin 0.70 mg/dL (0.2-1.0) 08/10/17 03:40 AST 22 Units/L (15-37) 08/10/17 03:40 ALT 7 Units/L (12-78) L 08/10/17 03:40 Alkaline Phosphatase 82 Units/L (46-116) 08/10/17 03:40 Creatine Kinase 24 Units/L (26-192) L 08/10/17 03:40 CK-MB (CK-2) 1.4 ng/mL (0-4.0) 08/10/17 03:40 CK/CKMB % Calc 5.8 % (<4) 08/10/17 03:40 Troponin I 0.11 ng/mL (0-1.5) 08/10/17 03:40 C-Reactive Protein 92.00 mg/L (0-3.0) H 08/07/17 10:35 B-Natriuretic Peptide 1180 pg/mL (0-79) H* 08/10/17 03:40 Total Protein 6.6 g/dL (6.4-8.2) 08/10/17 03:40 Albumin 1.8 g/dL (3.4-5.0) L 08/10/17 03:40 Globulin 4.8 g/dL (2.5-4.5) H 08/10/17 03:40 Albumin/Globulin Ratio 0.4 Ratio (1.1-2.1) L 08/10/17 03:40 Specimen Type Clean catch urine 08/09/17 15:30 Urine Color Yellow (YELLOW) 08/09/17 15:30 Urine Appearance Clear (CLEAR) 08/09/17 15:30 Urine pH 5.0 (5.0 - 8.0) 08/09/17 15:30 Ur Specific [place] 1.010 (1.000-1.030) 08/09/17 15:30 Urine Protein Negative (NEGATIVE) 08/09/17 15:30 Urine Glucose (UA) Negative (NEGATIVE) 08/09/17 15:30 Urine Ketones Negative (NEGATIVE) 08/09/17 15:30 Urine Occult Blood Negative (NEGATIVE) 08/09/17 15:30 Urine Nitrite Negative (NEGATIVE) 08/09/17 15:30 Urine Bilirubin Negative (NEGATIVE) 08/09/17 15:30 Urine Urobilinogen Normal (NORMAL) 08/09/17 15:30 Ur Leukocyte Esterase Negative (NEGATIVE) 08/09/17 15:30 - Plan (1) Pneumonia Status: Acute Qualifiers: Pneumonia type: due to unspecified organism Laterality: left Lung location: lower lobe of lung Qualified Code(s): J18.1 - Lobar pneumonia, unspecified organism Plan: DOXYCYCLINE, ROCEPHIN 1GM IV DAILY, SUPPLEMENTAL OXYGEN, ROBITUSSIN, TUSSIONEX, RESPIRATORY TREATMENTS, CONTINUE TO MONITOR (2) Generalized weakness Status: Acute (3) Congestive heart failure Status: Acute Qualifiers: Heart failure type: unspecified Heart failure chronicity: acute Qualified Code(s): I50.9 - Heart failure, unspecified Plan: LASIX 40MG IV BID, SUPPLEMENTAL OXYGEN, CONTINUE HOME MEDS.
--- NOTE | 2017-08-10 21:12 | PCM.PROG ---
Progress Note - Progress Note for Day of Date: 08/09/17 - Subjective Subjective: IS BEING TREATED FOR PNEUMONIA, CONGESTIVE HEART FAILURE, AND SHORTNESS OF BREATH. SHE IS ALERT AND ORIENTED, LYING IN BED ON MORNING ROUNDS. SHE CONTINUES WITH COUGH AND SOB. EXAM REVEALS SCATTERED WHEEZING AND RHONCHI TO BILATERAL LUNG SAL. HER VITALS TODAY ARE 98.2-112-24-93%-137/73. ABNORMAL LAB VALUES INCLUDE THE FOLLOWING: WBC INCREASED FROM 10.2 TO 13.2, HGB 10.0, HCT 29.7, SODIUM 133, POTASSIUM 3.1, CHLORIDE 97, GLUCOSE 140, MAGNESIUM 1.6, ALT 7, CREATINE KINASE 24, ALBUMIN 1.8, GLOBULIN 4.8. A CHEST XRAY WAS OBTAINED TODAY. IT REVEALED CARDIOMEGALY, PULMONARY EDEMA WITH EFFUSIONS, COMPATIBLE WITH CHF. TODAY, WE WILL CONTINUE WITH IV ANTIBIOTICS, RESPIRATORY TREATMENTS, LASIX, AND SUPPLEMENTAL OXYGEN. OTHERWISE, WE WILL FOLLOW UP WITH AM LABS AND CONTINUE TO MONITOR PATIENT. - Past Medical Family Social History Past Med/Fam/Surg Hx: No changes since H&P Allergies: Allergies naproxen [From Naprosyn] Allergy (Verified 05/28/17 00:35) - Review of Systems ROS: No change since H&P - Vital Signs and I&O's Vital Signs: Temperature 100.3 F Pulse Rate [Right Brachial] 80 Pulse Rate 82 Respiratory Rate 27 Blood Pressure [Right Arm] 109/53 Blood Pressure 158/85 O2 Sat by Pulse Oximetry 99 Intake and Output: Intake & Output 08/08/17 08/09/17 08/10/17 08/11/17 11:59 11:59 11:59 11:59 Intake Total 7644 853 0047 1342 Output Total 1500 850 Balance 1150 540 722 492 - Physical Exam Oriented: Normal Eyes: Normal Ear: Normal Nose: Normal Throat: Normal Respiratory: Generalized, Wheezes, Rhonchi Cardiovascular: Tachycardia : Normal Auscultation: Bowel Sounds: Normal Palpation: Normal Tenderness: Normal Skin: Normal Musculoskeletal: Normal Psychiatric: Normal Mood Description: Calm Affect: Normal Speech Pattern: Clear, Appropriate - Laboratory and Diagnostics Result Diagrams: 08/10/17 03:40 08/10/17 19:00 Labs: 08/09/17 15:45 Urine,Clean Catch Urine Culture - Preliminary 08/07/17 12:22 Blood Blood Culture - Preliminary 08/07/17 12:20 Blood Blood Culture - Preliminary Laboratory WBC 15.6 X10^3/uL (3.6-10.0) H 08/10/17 03:40 RBC 3.62 X10^6/uL (3.5-5.4) 08/10/17 03:40 Hgb 10.2 g/dL (12.0-16.0) L 08/10/17 03:40 Hct 30.7 % (36.0-47.0) L 08/10/17 03:40 MCV 84.8 fL (80.0-100.0) 08/10/17 03:40 MCH 28.2 pg (27.0-34.0) 08/10/17 03:40 MCHC 33.3 g/dL (33.0-35.0) 08/10/17 03:40 RDW 14.8 % (11.6-16.5) 08/10/17 03:40 Plt Count 275 X10^3/uL (150.0-450.0) 08/10/17 03:40 MPV 8.1 fL (7.4-11.0) 08/10/17 03:40 Neut % (Auto) 77.2 % (42.0-75.0) H 08/10/17 03:40 Lymph % (Auto) 12.1 % (21.0-51.0) L 08/10/17 03:40 [place] % (Auto) 10.3 % (0.0-13.0) 08/10/17 03:40 Eos % (Auto) 0.3 % (0.9-2.9) L 08/10/17 03:40 Baso % (Auto) 0.1 % (0.2-1.0) L 08/10/17 03:40 Neut # (Auto) 12.0 x10^3/uL (2.2-4.8) H 08/10/17 03:40 Lymph # (Auto) 1.9 X10^3/uL (1.3-2.9) 08/10/17 03:40 [place] # (Auto) 1.6 x10^3/uL (0.3-0.8) H 08/10/17 03:40 Eos # (Auto) 0.0 x10^3/uL (0.0-0.2) 08/10/17 03:40 Baso # (Auto) 0.0 X10^3/uL (0.0-0.1) 08/10/17 03:40 Absolute Nucleated RBC 0.0 /100WBC 08/10/17 03:40 Sodium 133 mmol/L (136-145) L 08/10/17 03:40 Corrected Sodium 134 mmol/L (136-145) L 08/10/17 03:40 Potassium 3.1 mmol/L (3.5-5.1) L 08/10/17 19:00 Chloride 97 mmol/L (98-107) L 08/10/17 03:40 Carbon Dioxide 30.3 mmol/L (21-32) 08/10/17 03:40 BUN 10 mg/dL (7-18) 08/10/17 03:40 Creatinine 0.95 mg/dL (0.55-1.02) 08/10/17 03:40 Est GFR (MDRD) Af Amer > 60 (>60) 08/10/17 03:40 Est GFR (MDRD) Non-Af > 60 (>60) 08/10/17 03:40 Glucose 140 mg/dL (65-99) H 08/10/17 03:40 Lactic Acid 1.4 mmol/L (0.4-2.0) 08/07/17 10:35 Calcium 9.0 mg/dL (8.5-10.1) 08/10/17 03:40 Corrected Calcium 10.8 mg/dL (8.5-10.1) H 08/10/17 03:40 Magnesium 1.6 mg/dL (1.7-2.9) L 08/10/17 03:40 Total Bilirubin 0.70 mg/dL (0.2-1.0) 08/10/17 03:40 AST 22 Units/L (15-37) 08/10/17 03:40 ALT 7 Units/L (12-78) L 08/10/17 03:40 Alkaline Phosphatase 82 Units/L (46-116) 08/10/17 03:40 Creatine Kinase 24 Units/L (26-192) L 08/10/17 03:40 CK-MB (CK-2) 1.4 ng/mL (0-4.0) 08/10/17 03:40 CK/CKMB % Calc 5.8 % (<4) 08/10/17 03:40 Troponin I 0.11 ng/mL (0-1.5) 08/10/17 03:40 C-Reactive Protein 92.00 mg/L (0-3.0) H 08/07/17 10:35 B-Natriuretic Peptide 1180 pg/mL (0-79) H* 08/10/17 03:40 Total Protein 6.6 g/dL (6.4-8.2) 08/10/17 03:40 Albumin 1.8 g/dL (3.4-5.0) L 08/10/17 03:40 Globulin 4.8 g/dL (2.5-4.5) H 08/10/17 03:40 Albumin/Globulin Ratio 0.4 Ratio (1.1-2.1) L 08/10/17 03:40 Specimen Type Clean catch urine 08/09/17 15:30 Urine Color Yellow (YELLOW) 08/09/17 15:30 Urine Appearance Clear (CLEAR) 08/09/17 15:30 Urine pH 5.0 (5.0 - 8.0) 08/09/17 15:30 Ur Specific [place] 1.010 (1.000-1.030) 08/09/17 15:30 Urine Protein Negative (NEGATIVE) 08/09/17 15:30 Urine Glucose (UA) Negative (NEGATIVE) 08/09/17 15:30 Urine Ketones Negative (NEGATIVE) 08/09/17 15:30 Urine Occult Blood Negative (NEGATIVE) 08/09/17 15:30 Urine Nitrite Negative (NEGATIVE) 08/09/17 15:30 Urine Bilirubin Negative (NEGATIVE) 08/09/17 15:30 Urine Urobilinogen Normal (NORMAL) 08/09/17 15:30 Ur Leukocyte Esterase Negative (NEGATIVE) 08/09/17 15:30 - Plan (1) Pneumonia Status: Acute Qualifiers: Pneumonia type: due to unspecified organism Laterality: left Lung location: lower lobe of lung Qualified Code(s): J18.1 - Lobar pneumonia, unspecified organism Plan: DOXYCYCLINE, ROCEPHIN 1GM IV DAILY, SUPPLEMENTAL OXYGEN, ROBITUSSIN, TUSSIONEX, RESPIRATORY TREATMENTS, CONTINUE TO MONITOR (2) Generalized weakness Status: Acute (3) Congestive heart failure Status: Acute Qualifiers: Heart failure type: unspecified Heart failure chronicity: acute Qualified Code(s): I50.9 - Heart failure, unspecified Plan: LASIX 40MG IV BID, SUPPLEMENTAL OXYGEN, CONTINUE HOME MEDS.
[2017-08-10] MEDS: PERCOCET TAB 5/325 MG PO PRN (21:29)
[2017-08-10] MEDS: RESTORIL CAP 30 MG PO SCH (21:29)
[2017-08-11] MEDS: BUTT CREAM (COMPOUND) TOP PRN (00:40)
[2017-08-11] MEDS: NEURONTIN CAP 300 MG PO SCH ×3 (05:46→21:21)
[2017-08-11 06:14] LABS: HEMOGLOBIN 9.6 g/dL (12.0-16.0); PLATELET COUNT 278 X10^3/uL (150.0-450.0)
[2017-08-11 06:25] LABS: ALANINE AMINOTRANSFERASE 12 Units/L (12-78); ALBUMIN 1.8 g/dL (3.4-5.0); ALKALINE PHOSPHATASE 87 Units/L (46-116); ASPARTATE AMINO TRANSFERASE 48 Units/L (15-37); BLOOD UREA NITROGEN 13 mg/dL (7-18); CALCIUM 9.5 mg/dL (8.5-10.1); CARBON DIOXIDE 29.6 mmol/L (21-32); CHLORIDE 97 mmol/L (98-107); COR CA(FOR HYPOALB) 11.3 mg/dL (8.5-10.1); COR NA(FOR HYPERGLY) 132 mmol/L (136-145); CREATININE 1.02 mg/dL (0.55-1.02); MAGNESIUM 1.5 mg/dL (1.7-2.9); SODIUM 132 mmol/L (136-145); TOTAL PROTEIN 6.6 g/dL (6.4-8.2); eGFR BLACK RACES > 60 (>60); eGFR NON BLACK RACES 56 (>60)
[2017-08-11 06:28] LABS: BASOPHILS % (AUTO) 0.2 % (0.2-1.0); EOSINOPHILS # (AUTO) 0.4 x10^3/uL (0.0-0.2); EOSINOPHILS % (AUTO) 3.3 % (0.9-2.9); HEMATOCRIT 29.2 % (36.0-47.0); LYMPHOCYTES % (AUTO) 16.1 % (21.0-51.0); MEAN CORPUSCULAR HEMOGLOBIN 28.2 pg (27.0-34.0); MEAN CORPUSCULAR VOLUME 85.3 fL (80.0-100.0); MEAN PLATELET VOLUME 7.6 fL (7.4-11.0); MONOCYTES # (AUTO) 1.1 x10^3/uL (0.3-0.8); MONOCYTES % (AUTO) 8.9 % (0.0-13.0); NEUTROPHILS # (AUTO) 8.9 x10^3/uL (2.2-4.8); NEUTROPHILS % (AUTO) 71.5 % (42.0-75.0); RED BLOOD COUNT 3.42 X10^6/uL (3.5-5.4); RED CELL DISTRIBUTION WIDTH 14.9 % (11.6-16.5); WHITE BLOOD COUNT 12.5 X10^3/uL (3.6-10.0)
[2017-08-11] MEDS ORDERED: LEXAPRO ONE (09:00)
[2017-08-11] MEDS: XOPENEX 1.25 MG/3 ML NEBULE NEB SCH ×3 (09:13→16:28)
[2017-08-11] MEDS: ROCEPHIN 1 GM IV PREMIX IV SCH (10:01)
[2017-08-11] MEDS: ASPIRIN EC 81 MG PO SCH (10:04)
[2017-08-11] MEDS: HYDROCHLOROTHIAZIDE 25 MG TAB PO SCH (10:04)
[2017-08-11] MEDS: DULOXETINE HCL PO SCH (10:05)
[2017-08-11] MEDS: CALAN SR 120 MG PO SCH (10:05)
[2017-08-11] MEDS: MICRO K EXTEN CAP 10 MEQ PO SCH ×4 (10:05→21:19)
[2017-08-11] MEDS: LEXAPRO PO SCH (10:06)
[2017-08-11] MEDS: MAG-OX TAB PO SCH (10:06)
[2017-08-11] MEDS: ROBITUSSIN DM PO SCH ×4 (10:07→21:21)
[2017-08-11] MEDS: SYNTHROID 100 mcg TAB PO SCH (10:07)
[2017-08-11] MEDS ORDERED: ALBUMIN HUMAN 25%- 100ML 100 ML IV ONE (10:30)
[2017-08-11] MEDS ORDERED: FORTAZ or TAZICEF INJ ONE (10:31)
[2017-08-11] MEDS: PriLOSEC PO SCH ×2 (10:34→21:21)
[2017-08-11] MEDS: ALBUMIN HUMAN 25%- 100ML 100 ML IV SCH (10:34)
[2017-08-11] MEDS ORDERED: NS 100 ML IV + SPIKE MINIBAG* 100 ML IV ONE (10:54)
[2017-08-11] MEDS: FORTAZ or TAZICEF INJ 1 GM in NS 100 ML IV + SPIKE MINIBAG* 100 ML IV SCH ×3 (11:34→22:05)
--- NOTE | 2017-08-11 12:30 | PCM.PROG ---
Progress Note - Progress Note for Day of Date: 08/10/17 - Subjective Subjective: IS BEING TREATED FOR PNEUMONIA, CONGESTIVE HEART FAILURE, AND SHORTNESS OF BREATH. SHE WAS TO THE INTENSIVE CARE UNIT YESTERDAY AFTER AN EKG CONFIRMED SVT. STAFF REPORTS THAT PATIENT WAS RETURNING TO BED WHEN SHE BEGAN FEELING SHORT OF BREATH AND LIKE HER HEART WAS RACING. TELEMETRY WAS APPLIED AND REVEALED HEART RATE IN THE 200s. SHE ALSO COMPLAINTED OF A SEVERE HEADACHE AND CHEST PAIN. SHE WAS GIVEN VERAPAMIL. LAST NIGHT, SHE HAD ANOTHER EPISODE OF SVT. SHE WAS GIVEN VERAPAMIL 5MG IV X 1 DOSE AND STARTED ON A DOPAMINE DRIP DUE TO HYPOTENSION. TODAY, SHE IS ALERT AND ORIENTED, LYING IN BED ON MORNING ROUNDS. SHE CONTINUES WITH SHORNTESS OF BREATH, BUT REPORTS IMPROVEMENT SINCE YESTERDAY. EXAM REVEALS SCATTERED WHEEZING AND RHONCHI TO BILATERAL LUNG SAL. HER VITALS TODAY ARE 98.4-85-24-97%-100/53. ABNORMAL LAB VALUES INCLUDE THE FOLLOWING: WBC 15.6, HGB 10.0 HCT 29.7, SODIUM 133, POTASSIUM 3.1, CHLORIDE 97, GLUCOSE 140, MAGNESIUM 1.6, ALT 7, CREATINE KINASE 24, BNP 1180, ALBUMIN 1.8, GLOBULIN 4.8. A CHEST XRAY WAS OBTAINED TODAY. IT REVEALED STABLE MILD INTERSTITIAL EDEMA WITH BIBASILAR EFFUSIONS. TODAY, WE WILL CONTINUE HER CURRENT PLAN OF CARE AND WEAN OFF OF THE DOPAMINE DRIP. OTHERWISE, WE WILL FOLLOW UP WITH AM LABS AND CONTINUE TO MONITOR PATIENT. - Past Medical Family Social History Past Med/Fam/Surg Hx: No changes since H&P Allergies: Allergies naproxen [From Naprosyn] Allergy (Verified 05/28/17 00:35) - Review of Systems ROS: No change since H&P - Vital Signs and I&O's Vital Signs: Temperature 97.6 F Pulse Rate [Right Brachial] 76 Pulse Rate 80 Respiratory Rate 19 Blood Pressure [Right Arm] 96/53 Blood Pressure 158/85 O2 Sat by Pulse Oximetry 98 Intake and Output: Intake & Output 08/09/17 08/10/17 08/11/17 08/12/17 11:59 11:59 11:59 11:59 Intake Total 540 2222 2508 7 Output Total 1500 1200 Balance 836 748 4304 7 - Physical Exam Oriented: Normal Eyes: Normal Ear: Normal Nose: Normal Throat: Normal Respiratory: Generalized, Wheezes, Rhonchi Cardiovascular: Tachycardia : Normal Auscultation: Bowel Sounds: Normal Palpation: Normal Tenderness: Normal Skin: Normal Musculoskeletal: Normal Psychiatric: Normal Mood Description: Calm Affect: Normal Speech Pattern: Clear, Appropriate - Laboratory and Diagnostics Result Diagrams: 08/11/17 05:42 08/11/17 05:42 Labs: 08/09/17 15:45 Urine,Clean Catch Urine Culture - Final 08/07/17 12:22 Blood Blood Culture - Preliminary 08/07/17 12:20 Blood Blood Culture - Preliminary Laboratory WBC 12.5 X10^3/uL (3.6-10.0) H 08/11/17 05:42 RBC 3.42 X10^6/uL (3.5-5.4) L 08/11/17 05:42 Hgb 9.6 g/dL (12.0-16.0) L 08/11/17 05:42 Hct 29.2 % (36.0-47.0) L 08/11/17 05:42 MCV 85.3 fL (80.0-100.0) 08/11/17 05:42 MCH 28.2 pg (27.0-34.0) 08/11/17 05:42 MCHC 33.0 g/dL (33.0-35.0) 08/11/17 05:42 RDW 14.9 % (11.6-16.5) 08/11/17 05:42 Plt Count 278 X10^3/uL (150.0-450.0) 08/11/17 05:42 MPV 7.6 fL (7.4-11.0) 08/11/17 05:42 Neut % (Auto) 71.5 % (42.0-75.0) 08/11/17 05:42 Lymph % (Auto) 16.1 % (21.0-51.0) L 08/11/17 05:42 [place] % (Auto) 8.9 % (0.0-13.0) 08/11/17 05:42 Eos % (Auto) 3.3 % (0.9-2.9) H 08/11/17 05:42 Baso % (Auto) 0.2 % (0.2-1.0) 08/11/17 05:42 Neut # (Auto) 8.9 x10^3/uL (2.2-4.8) H 08/11/17 05:42 Lymph # (Auto) 2.0 X10^3/uL (1.3-2.9) 08/11/17 05:42 [place] # (Auto) 1.1 x10^3/uL (0.3-0.8) H 08/11/17 05:42 Eos # (Auto) 0.4 x10^3/uL (0.0-0.2) H 08/11/17 05:42 Baso # (Auto) 0.0 X10^3/uL (0.0-0.1) 08/11/17 05:42 Absolute Nucleated RBC 0.0 /100WBC 08/11/17 05:42 Sodium 132 mmol/L (136-145) L 08/11/17 05:42 Corrected Sodium 132 mmol/L (136-145) L 08/11/17 05:42 Potassium 4.1 mmol/L (3.5-5.1) 08/11/17 05:42 Chloride 97 mmol/L (98-107) L 08/11/17 05:42 Carbon Dioxide 29.6 mmol/L (21-32) 08/11/17 05:42 BUN 13 mg/dL (7-18) 08/11/17 05:42 Creatinine 1.02 mg/dL (0.55-1.02) 08/11/17 05:42 Est GFR (MDRD) Af Amer > 60 (>60) 08/11/17 05:42 Est GFR (MDRD) Non-Af 56 (>60) L 08/11/17 05:42 Glucose 114 mg/dL (65-99) H 08/11/17 05:42 Lactic Acid 1.4 mmol/L (0.4-2.0) 08/07/17 10:35 Calcium 9.5 mg/dL (8.5-10.1) 08/11/17 05:42 Corrected Calcium 11.3 mg/dL (8.5-10.1) H 08/11/17 05:42 Magnesium 1.5 mg/dL (1.7-2.9) L 08/11/17 05:42 Total Bilirubin 0.50 mg/dL (0.2-1.0) 08/11/17 05:42 AST 48 Units/L (15-37) H 08/11/17 05:42 ALT 12 Units/L (12-78) 08/11/17 05:42 Alkaline Phosphatase 87 Units/L (46-116) 08/11/17 05:42 Creatine Kinase 24 Units/L (26-192) L 08/10/17 03:40 CK-MB (CK-2) 1.4 ng/mL (0-4.0) 08/10/17 03:40 CK/CKMB % Calc 5.8 % (<4) 08/10/17 03:40 Troponin I 0.11 ng/mL (0-1.5) 08/10/17 03:40 C-Reactive Protein 92.00 mg/L (0-3.0) H 08/07/17 10:35 B-Natriuretic Peptide 1180 pg/mL (0-79) H* 08/10/17 03:40 Total Protein 6.6 g/dL (6.4-8.2) 08/11/17 05:42 Albumin 1.8 g/dL (3.4-5.0) L 08/11/17 05:42 Globulin 4.8 g/dL (2.5-4.5) H 08/11/17 05:42 Albumin/Globulin Ratio 0.4 Ratio (1.1-2.1) L 08/11/17 05:42 Specimen Type Clean catch urine 08/09/17 15:30 Urine Color Yellow (YELLOW) 08/09/17 15:30 Urine Appearance Clear (CLEAR) 08/09/17 15:30 Urine pH 5.0 (5.0 - 8.0) 08/09/17 15:30 Ur Specific [place] 1.010 (1.000-1.030) 08/09/17 15:30 Urine Protein Negative (NEGATIVE) 08/09/17 15:30 Urine Glucose (UA) Negative (NEGATIVE) 08/09/17 15:30 Urine Ketones Negative (NEGATIVE) 08/09/17 15:30 Urine Occult Blood Negative (NEGATIVE) 08/09/17 15:30 Urine Nitrite Negative (NEGATIVE) 08/09/17 15:30 Urine Bilirubin Negative (NEGATIVE) 08/09/17 15:30 Urine Urobilinogen Normal (NORMAL) 08/09/17 15:30 Ur Leukocyte Esterase Negative (NEGATIVE) 08/09/17 15:30 - Plan (1) Pneumonia Status: Acute Qualifiers: Pneumonia type: due to unspecified organism Laterality: left Lung location: lower lobe of lung Qualified Code(s): J18.1 - Lobar pneumonia, unspecified organism Plan: DOXYCYCLINE, ROCEPHIN 1GM IV DAILY, SUPPLEMENTAL OXYGEN, ROBITUSSIN, TUSSIONEX, RESPIRATORY TREATMENTS, CONTINUE TO MONITOR (2) Generalized weakness Status: Acute (3) Congestive heart failure Status: Acute Qualifiers: Heart failure type: unspecified Heart failure chronicity: acute Qualified Code(s): I50.9 - Heart failure, unspecified Plan: LASIX 40MG IV BID, SUPPLEMENTAL OXYGEN, CONTINUE HOME MEDS. (4) Tachycardia Status: Acute Plan: [id number] PO DIALY, CONTINUE TO MONITOR (5) Hypotension Status: Acute Qualifiers: Hypotension type: unspecified hypotension type Qualified Code(s): I95.9 - Hypotension, unspecified Plan: DOPAMINE DRIP, CONTINUE TO MONITOR
[2017-08-11] MEDS: LEVAQUIN PREMIX IV 750 MG 750 MG/150 ML BAG IV SCH (12:34)
--- NOTE | 2017-08-11 14:55 | PCM.PROG ---
Progress Note - Progress Note for Day of Date: 08/11/17 - Subjective Subjective: IS BEING TREATED FOR PNEUMONIA, CONGESTIVE HEART FAILURE, AND SHORTNESS OF BREATH. TODAY, SHE IS ALERT AND ORIENTED, LYING IN BED ON MORNING ROUNDS. SHE CONTINUES WITH SHORTNESS OF BREATH, BUT REPORTS IMPROVEMENT SINCE YESTERDAY. EXAM REVEALS SCATTERED WHEEZING AND RHONCHI TO BILATERAL LUNG SAL. EDGE DRUMMER REVEALS NORMAL SINUS RHYTHM. HEART RATE HAS REMAINED IN THE 70S THROUGHOUT THE NIGHT. HER VITALS TODAY ARE 97.6-76-19-97%-96/53. ABNORMAL LAB VALUES INCLUDE THE FOLLOWING: WBC 12.5, RBC 3.42, HGB 9.6, HCT 29.2 , SODIUM 132, CHLORIDE 97, GLUCOSE 114, MAGNESIUM 1.5, AST 48, ALBUMIN 1.8, GLOBULIN 4.8. STAFF WAS UNABLE TO WEAN OFF OF DOPAMINE DUE TO BLOOD PRESSURE DROPPING. TODAY, WE WILL HOLD HER LASIX AND START ALBUMIN. WE WILL CONTINUE HER CURRENT PLAN OF CARE AND CONTINUE TO TRY WEANING OFF OF THE DOPAMINE DRIP. OTHERWISE, WE WILL FOLLOW UP WITH AM LABS AND CONTINUE TO MONITOR PATIENT. - Past Medical Family Social History Past Med/Fam/Surg Hx: No changes since H&P Allergies: Allergies naproxen [From Naprosyn] Allergy (Verified 05/28/17 00:35) - Review of Systems ROS: No change since H&P - Vital Signs and I&O's Vital Signs: Temperature 97.9 F Pulse Rate [Right Brachial] 83 Pulse Rate 80 Respiratory Rate 20 Blood Pressure [Right Arm] 95/50 Blood Pressure 158/85 O2 Sat by Pulse Oximetry 99 Intake and Output: Intake & Output 08/09/17 08/10/17 08/11/17 08/12/17 11:59 11:59 11:59 11:59 Intake Total 540 2222 2508 7 Output Total 1500 1200 Balance 084 981 8377 7 - Physical Exam Oriented: Normal Eyes: Normal Ear: Normal Nose: Normal Throat: Normal Respiratory: Generalized, Wheezes, Rhonchi Cardiovascular: Tachycardia : Normal Auscultation: Bowel Sounds: Normal Palpation: Normal Tenderness: Normal Skin: Normal Musculoskeletal: Normal Psychiatric: Normal Mood Description: Calm Affect: Normal Speech Pattern: Clear, Appropriate - Laboratory and Diagnostics Result Diagrams: 08/11/17 05:42 08/11/17 05:42 Labs: 08/09/17 15:45 Urine,Clean Catch Urine Culture - Final 08/07/17 12:22 Blood Blood Culture - Preliminary 08/07/17 12:20 Blood Blood Culture - Preliminary Laboratory WBC 12.5 X10^3/uL (3.6-10.0) H 08/11/17 05:42 RBC 3.42 X10^6/uL (3.5-5.4) L 08/11/17 05:42 Hgb 9.6 g/dL (12.0-16.0) L 08/11/17 05:42 Hct 29.2 % (36.0-47.0) L 08/11/17 05:42 MCV 85.3 fL (80.0-100.0) 08/11/17 05:42 MCH 28.2 pg (27.0-34.0) 08/11/17 05:42 MCHC 33.0 g/dL (33.0-35.0) 08/11/17 05:42 RDW 14.9 % (11.6-16.5) 08/11/17 05:42 Plt Count 278 X10^3/uL (150.0-450.0) 08/11/17 05:42 MPV 7.6 fL (7.4-11.0) 08/11/17 05:42 Neut % (Auto) 71.5 % (42.0-75.0) 08/11/17 05:42 Lymph % (Auto) 16.1 % (21.0-51.0) L 08/11/17 05:42 [place] % (Auto) 8.9 % (0.0-13.0) 08/11/17 05:42 Eos % (Auto) 3.3 % (0.9-2.9) H 08/11/17 05:42 Baso % (Auto) 0.2 % (0.2-1.0) 08/11/17 05:42 Neut # (Auto) 8.9 x10^3/uL (2.2-4.8) H 08/11/17 05:42 Lymph # (Auto) 2.0 X10^3/uL (1.3-2.9) 08/11/17 05:42 [place] # (Auto) 1.1 x10^3/uL (0.3-0.8) H 08/11/17 05:42 Eos # (Auto) 0.4 x10^3/uL (0.0-0.2) H 08/11/17 05:42 Baso # (Auto) 0.0 X10^3/uL (0.0-0.1) 08/11/17 05:42 Absolute Nucleated RBC 0.0 /100WBC 08/11/17 05:42 Sodium 132 mmol/L (136-145) L 08/11/17 05:42 Corrected Sodium 132 mmol/L (136-145) L 08/11/17 05:42 Potassium 4.1 mmol/L (3.5-5.1) 08/11/17 05:42 Chloride 97 mmol/L (98-107) L 08/11/17 05:42 Carbon Dioxide 29.6 mmol/L (21-32) 08/11/17 05:42 BUN 13 mg/dL (7-18) 08/11/17 05:42 Creatinine 1.02 mg/dL (0.55-1.02) 08/11/17 05:42 Est GFR (MDRD) Af Amer > 60 (>60) 08/11/17 05:42 Est GFR (MDRD) Non-Af 56 (>60) L 08/11/17 05:42 Glucose 114 mg/dL (65-99) H 08/11/17 05:42 Lactic Acid 1.4 mmol/L (0.4-2.0) 08/07/17 10:35 Calcium 9.5 mg/dL (8.5-10.1) 08/11/17 05:42 Corrected Calcium 11.3 mg/dL (8.5-10.1) H 08/11/17 05:42 Magnesium 1.5 mg/dL (1.7-2.9) L 08/11/17 05:42 Total Bilirubin 0.50 mg/dL (0.2-1.0) 08/11/17 05:42 AST 48 Units/L (15-37) H 08/11/17 05:42 ALT 12 Units/L (12-78) 08/11/17 05:42 Alkaline Phosphatase 87 Units/L (46-116) 08/11/17 05:42 Creatine Kinase 24 Units/L (26-192) L 08/10/17 03:40 CK-MB (CK-2) 1.4 ng/mL (0-4.0) 08/10/17 03:40 CK/CKMB % Calc 5.8 % (<4) 08/10/17 03:40 Troponin I 0.11 ng/mL (0-1.5) 08/10/17 03:40 C-Reactive Protein 92.00 mg/L (0-3.0) H 08/07/17 10:35 B-Natriuretic Peptide 1180 pg/mL (0-79) H* 08/10/17 03:40 Total Protein 6.6 g/dL (6.4-8.2) 08/11/17 05:42 Albumin 1.8 g/dL (3.4-5.0) L 08/11/17 05:42 Globulin 4.8 g/dL (2.5-4.5) H 08/11/17 05:42 Albumin/Globulin Ratio 0.4 Ratio (1.1-2.1) L 08/11/17 05:42 Specimen Type Clean catch urine 08/09/17 15:30 Urine Color Yellow (YELLOW) 08/09/17 15:30 Urine Appearance Clear (CLEAR) 08/09/17 15:30 Urine pH 5.0 (5.0 - 8.0) 08/09/17 15:30 Ur Specific [place] 1.010 (1.000-1.030) 08/09/17 15:30 Urine Protein Negative (NEGATIVE) 08/09/17 15:30 Urine Glucose (UA) Negative (NEGATIVE) 08/09/17 15:30 Urine Ketones Negative (NEGATIVE) 08/09/17 15:30 Urine Occult Blood Negative (NEGATIVE) 08/09/17 15:30 Urine Nitrite Negative (NEGATIVE) 08/09/17 15:30 Urine Bilirubin Negative (NEGATIVE) 08/09/17 15:30 Urine Urobilinogen Normal (NORMAL) 08/09/17 15:30 Ur Leukocyte Esterase Negative (NEGATIVE) 08/09/17 15:30 - Plan (1) Pneumonia Status: Acute Qualifiers: Pneumonia type: due to unspecified organism Laterality: left Lung location: lower lobe of lung Qualified Code(s): J18.1 - Lobar pneumonia, unspecified organism Plan: DOXYCYCLINE, ROCEPHIN 1GM IV DAILY, SUPPLEMENTAL OXYGEN, ROBITUSSIN, TUSSIONEX, RESPIRATORY TREATMENTS, CONTINUE TO MONITOR (2) Generalized weakness Status: Acute (3) Congestive heart failure Status: Acute Qualifiers: Heart failure type: unspecified Heart failure chronicity: acute Qualified Code(s): I50.9 - Heart failure, unspecified Plan: LASIX 40MG IV BID, SUPPLEMENTAL OXYGEN, CONTINUE HOME MEDS. (4) Tachycardia Status: Acute Plan: [id number] PO DIALY, CONTINUE TO MONITOR (5) Hypotension Status: Acute Qualifiers: Hypotension type: unspecified hypotension type Qualified Code(s): I95.9 - Hypotension, unspecified Plan: DOPAMINE DRIP, CONTINUE TO MONITOR
[2017-08-11] MEDS ORDERED: NS 1/2 1000 ML IV 1,000 ML IV ONE (20:56)
[2017-08-11] MEDS: PERCOCET TAB 5/325 MG PO PRN (21:20)
[2017-08-11] MEDS: NS 1/2 1000 ML IV 1,000 ML IV SCH ×2 (21:21)
[2017-08-11] MEDS: RESTORIL CAP 30 MG PO SCH (21:21)
[2017-08-12] MEDS: XOPENEX 1.25 MG/3 ML NEBULE NEB SCH ×5 (01:04→20:47)
[2017-08-12 05:56] LABS: ALANINE AMINOTRANSFERASE 14 Units/L (12-78); ALKALINE PHOSPHATASE 77 Units/L (46-116); ASPARTATE AMINO TRANSFERASE 45 Units/L (15-37); BLOOD UREA NITROGEN 12 mg/dL (7-18); CALCIUM 9.5 mg/dL (8.5-10.1); CARBON DIOXIDE 28.5 mmol/L (21-32); CHLORIDE 100 mmol/L (98-107); COR CA(FOR HYPOALB) 11.1 mg/dL (8.5-10.1); CREATININE 0.89 mg/dL (0.55-1.02); MAGNESIUM 1.5 mg/dL (1.7-2.9); SODIUM 135 mmol/L (136-145); TOTAL PROTEIN 6.2 g/dL (6.4-8.2); eGFR BLACK RACES > 60 (>60); eGFR NON BLACK RACES > 60 (>60)
[2017-08-12] MEDS: FORTAZ or TAZICEF INJ 1 GM in NS 100 ML IV + SPIKE MINIBAG* 100 ML IV SCH ×3 (06:00→21:49)
[2017-08-12] MEDS: NEURONTIN CAP 300 MG PO SCH (06:00)
[2017-08-12 06:04] LABS: BASOPHILS % (AUTO) 0.2 % (0.2-1.0); EOSINOPHILS # (AUTO) 0.3 x10^3/uL (0.0-0.2); HEMATOCRIT 25.6 % (36.0-47.0); HEMOGLOBIN 8.7 g/dL (12.0-16.0); LYMPHOCYTES # (AUTO) 1.4 X10^3/uL (1.3-2.9); LYMPHOCYTES % (AUTO) 14.6 % (21.0-51.0); MEAN CORPUSCULAR HEMOGLOBIN 28.8 pg (27.0-34.0); MEAN CORPUSCULAR HGB CONC 33.9 g/dL (33.0-35.0); MEAN CORPUSCULAR VOLUME 84.8 fL (80.0-100.0); MEAN PLATELET VOLUME 7.9 fL (7.4-11.0); MONOCYTES # (AUTO) 0.9 x10^3/uL (0.3-0.8); NEUTROPHILS # (AUTO) 7.2 x10^3/uL (2.2-4.8); NEUTROPHILS % (AUTO) 73.2 % (42.0-75.0); PLATELET COUNT 242 X10^3/uL (150.0-450.0); RED BLOOD COUNT 3.02 X10^6/uL (3.5-5.4); RED CELL DISTRIBUTION WIDTH 14.8 % (11.6-16.5); WHITE BLOOD COUNT 9.8 X10^3/uL (3.6-10.0)
[2017-08-12] MEDS ORDERED: LEXAPRO ONE (09:40)
[2017-08-12] MEDS: LEVAQUIN PREMIX IV 750 MG 750 MG/150 ML BAG IV SCH (09:44)
[2017-08-12] MEDS: ALBUMIN HUMAN 25%- 100ML 100 ML IV SCH (09:45)
[2017-08-12] MEDS: ROBITUSSIN DM PO SCH ×4 (09:45→21:49)
[2017-08-12] MEDS: PriLOSEC PO SCH ×2 (09:46→21:49)
[2017-08-12] MEDS: ASPIRIN EC 81 MG PO SCH (09:46)
[2017-08-12] MEDS: SYNTHROID 100 mcg TAB PO SCH (09:47)
[2017-08-12] MEDS: LEXAPRO PO SCH (09:47)
[2017-08-12] MEDS: HYDROCHLOROTHIAZIDE 25 MG TAB PO SCH (09:47)
[2017-08-12] MEDS: MAG-OX TAB PO SCH (09:47)
[2017-08-12] MEDS: MICRO K EXTEN CAP 10 MEQ PO SCH ×4 (09:48→21:49)
[2017-08-12] MEDS: CALAN SR 120 MG PO SCH (10:00)
[2017-08-12] MEDS: DULOXETINE HCL PO SCH (10:00)
[2017-08-12] MEDS: NS 1/2 1000 ML IV 1,000 ML IV SCH ×2 (10:00→23:46)
[2017-08-12] MEDS: VIBRAMYCIN 100 MG in NS 100 ML IV + SPIKE MINIBAG* 100 ML IV SCH (11:25)
[2017-08-12] MEDS: LASIX IVP SCH (11:25)
[2017-08-12] MEDS: PERCOCET TAB 5/325 MG PO PRN (21:50)
[2017-08-12] MEDS ORDERED: NS 1/2 1000 ML IV 1,000 ML IV ONE (23:44)
[2017-08-13] MEDS: NS 1/2 1000 ML IV 1,000 ML IV SCH ×2 (05:35→10:38)
[2017-08-13] MEDS: FORTAZ or TAZICEF INJ 1 GM in NS 100 ML IV + SPIKE MINIBAG* 100 ML IV SCH ×3 (05:36→22:30)
[2017-08-13 06:06] LABS: BASOPHILS % (AUTO) 0.4 % (0.2-1.0); EOSINOPHILS # (AUTO) 0.4 x10^3/uL (0.0-0.2); HEMOGLOBIN 8.7 g/dL (12.0-16.0); LYMPHOCYTES # (AUTO) 1.5 X10^3/uL (1.3-2.9); LYMPHOCYTES % (AUTO) 17.7 % (21.0-51.0); MEAN CORPUSCULAR HEMOGLOBIN 28.6 pg (27.0-34.0); MEAN CORPUSCULAR HGB CONC 33.7 g/dL (33.0-35.0); MEAN CORPUSCULAR VOLUME 84.8 fL (80.0-100.0); MEAN PLATELET VOLUME 7.6 fL (7.4-11.0); MONOCYTES # (AUTO) 0.8 x10^3/uL (0.3-0.8); MONOCYTES % (AUTO) 9.3 % (0.0-13.0); NEUTROPHILS # (AUTO) 5.8 x10^3/uL (2.2-4.8); NEUTROPHILS % (AUTO) 67.6 % (42.0-75.0); PLATELET COUNT 298 X10^3/uL (150.0-450.0); RED BLOOD COUNT 3.06 X10^6/uL (3.5-5.4); RED CELL DISTRIBUTION WIDTH 15.1 % (11.6-16.5); WHITE BLOOD COUNT 8.5 X10^3/uL (3.6-10.0)
[2017-08-13 06:12] LABS: ALANINE AMINOTRANSFERASE 11 Units/L (12-78); ALBUMIN 2.2 g/dL (3.4-5.0); ALKALINE PHOSPHATASE 72 Units/L (46-116); ASPARTATE AMINO TRANSFERASE 38 Units/L (15-37); BLOOD UREA NITROGEN 8 mg/dL (7-18); CALCIUM 9.8 mg/dL (8.5-10.1); CARBON DIOXIDE 30.9 mmol/L (21-32); CHLORIDE 101 mmol/L (98-107); COR CA(FOR HYPOALB) 11.2 mg/dL (8.5-10.1); CREATININE 0.73 mg/dL (0.55-1.02); SODIUM 137 mmol/L (136-145); TOTAL PROTEIN 6.1 g/dL (6.4-8.2); eGFR BLACK RACES > 60 (>60); eGFR NON BLACK RACES > 60 (>60)
--- NOTE | 2017-08-13 07:25 | RAD ---
HISTORY: Shortness of breath Study: Chest AP portable Comparison: 08/10/2017 Findings: There is a left-sided central line with its tip in the superior vena cava. The heart is enlarged. Pul monary venous congestion is unchanged. No interstitial edema, alveolar edema, or alveolar infiltrates are identified. Bilateral pleural effusions are unchanged both of which cause some obscuration of th e lung markings in the lower lobes. The bony thorax is unremarkable. IMPRESSION: Persistent cardiomegaly with pulmonary venous congestion No change bilateral pleural effusions Reported By:
[2017-08-13] MEDS: ALBUMIN HUMAN 25%- 100ML 100 ML IV SCH (08:03)
[2017-08-13] MEDS: XOPENEX 1.25 MG/3 ML NEBULE NEB SCH ×4 (09:15→21:16)
[2017-08-13] MEDS ORDERED: LEXAPRO ONE (09:18)
[2017-08-13] MEDS: LEVAQUIN PREMIX IV 750 MG 750 MG/150 ML BAG IV SCH (09:28)
[2017-08-13] MEDS: SYNTHROID 100 mcg TAB PO SCH (09:30)
[2017-08-13] MEDS: ROBITUSSIN DM PO SCH ×4 (09:30→20:13)
[2017-08-13] MEDS: PriLOSEC PO SCH ×2 (09:30→20:13)
[2017-08-13] MEDS: MAG-OX TAB PO SCH (09:30)
[2017-08-13] MEDS: DULOXETINE HCL PO SCH (09:31)
[2017-08-13] MEDS: CALAN SR 120 MG PO SCH (09:31)
[2017-08-13] MEDS: ASPIRIN EC 81 MG PO SCH (09:31)
[2017-08-13] MEDS: LEXAPRO PO SCH (09:31)
[2017-08-13] MEDS: MICRO K EXTEN CAP 10 MEQ PO SCH ×4 (09:31→20:13)
[2017-08-13] MEDS: HYDROCHLOROTHIAZIDE 25 MG TAB PO SCH (09:32)
--- NOTE | 2017-08-13 10:44 | PCM.PROG ---
Progress Note - Progress Note for Day of Date: 08/12/17 - Subjective Subjective: IS BEING TREATED FOR PNEUMONIA, CONGESTIVE HEART FAILURE, AND SHORTNESS OF BREATH. TODAY, SHE IS ALERT AND ORIENTED, LYING IN BED ON MORNING ROUNDS. SHE CONTINUES WITH SHORTNESS OF BREATH. STAFF AND FAMILY REPORT THAT PATIENT HAS BEEN DROWSY AND DIFFICULT TO AROUSE AT TIMES. EXAM REVEALS SCATTERED WHEEZING AND RHONCHI TO BILATERAL LUNG SAL. VIRTUAL CUSTOMER ASSISTANT REVEALS NORMAL SINUS RHYTHM. HEART RATE HAS REMAINED IN THE 70S-80S SINCE YESTERDAY. HER VITALS TODAY ARE 98.4-79-13-100%-117/58. ABNORMAL LAB VALUES INCLUDE THE FOLLOWING: RBC 3.02, HGB 8.7, HCT 25.6, SODIUM 135, MAGNESIUM 1.5, AST 45, TOTAL PROTEIN 6.2, ALBUMIN 2.0. SHE HAS BEEN WEANED OFF OF DOPAMINE, HOWEVER, SHE REMAINS HYPOTENSIVE. TODAY, WE WILL HOLD HER GABAPENTIN AND OBTAIN RECORDS OF AN ECHOCARDIOGRAM THAT SHE HAD 1 MONTH AGO. OTHERWISE, WE WILL FOLLOW UP WITH AM LABS AND CONTINUE TO MONITOR PATIENT. - Past Medical Family Social History Past Med/Fam/Surg Hx: No changes since H&P Allergies: Allergies naproxen [From Naprosyn] Allergy (Verified 05/28/17 00:35) - Review of Systems ROS: No change since H&P - Vital Signs and I&O's Vital Signs: Temperature 97.4 F Pulse Rate [Right Brachial] 86 Pulse Rate 80 Respiratory Rate 22 Blood Pressure [Right Arm] 143/69 Blood Pressure 158/85 O2 Sat by Pulse Oximetry 99 Intake and Output: Intake & Output 08/10/17 08/11/17 08/12/17 08/13/17 11:59 11:59 11:59 11:59 Intake Total 2222 2508 1859 1698 Output Total 1500 1200 1300 1900 Balance 722 1308 559 -202 - Physical Exam Oriented: Normal Eyes: Normal Ear: Normal Nose: Normal Throat: Normal Respiratory: Generalized, Wheezes, Rhonchi Cardiovascular: Tachycardia : Normal Auscultation: Bowel Sounds: Normal Palpation: Normal Tenderness: Normal Skin: Normal Musculoskeletal: Normal Psychiatric: Normal Mood Description: Calm Affect: Normal Speech Pattern: Clear, Appropriate - Laboratory and Diagnostics Result Diagrams: 08/13/17 04:34 08/13/17 04:34 Labs: 08/07/17 12:22 Blood Blood Culture - Final 08/07/17 12:20 Blood Blood Culture - Final 08/09/17 15:45 Urine,Clean Catch Urine Culture - Final Laboratory WBC 8.5 X10^3/uL (3.6-10.0) 08/13/17 04:34 RBC 3.06 X10^6/uL (3.5-5.4) L 08/13/17 04:34 Hgb 8.7 g/dL (12.0-16.0) L 08/13/17 04:34 Hct 26.0 % (36.0-47.0) L 08/13/17 04:34 MCV 84.8 fL (80.0-100.0) 08/13/17 04:34 MCH 28.6 pg (27.0-34.0) 08/13/17 04:34 MCHC 33.7 g/dL (33.0-35.0) 08/13/17 04:34 RDW 15.1 % (11.6-16.5) 08/13/17 04:34 Plt Count 298 X10^3/uL (150.0-450.0) 08/13/17 04:34 MPV 7.6 fL (7.4-11.0) 08/13/17 04:34 Neut % (Auto) 67.6 % (42.0-75.0) 08/13/17 04:34 Lymph % (Auto) 17.7 % (21.0-51.0) L 08/13/17 04:34 [place] % (Auto) 9.3 % (0.0-13.0) 08/13/17 04:34 Eos % (Auto) 5.0 % (0.9-2.9) H 08/13/17 04:34 Baso % (Auto) 0.4 % (0.2-1.0) 08/13/17 04:34 Neut # (Auto) 5.8 x10^3/uL (2.2-4.8) H 08/13/17 04:34 Lymph # (Auto) 1.5 X10^3/uL (1.3-2.9) 08/13/17 04:34 [place] # (Auto) 0.8 x10^3/uL (0.3-0.8) 08/13/17 04:34 Eos # (Auto) 0.4 x10^3/uL (0.0-0.2) H 08/13/17 04:34 Baso # (Auto) 0.0 X10^3/uL (0.0-0.1) 08/13/17 04:34 Absolute Nucleated RBC 0.1 /100WBC 08/13/17 04:34 Sodium 137 mmol/L (136-145) 08/13/17 04:34 Corrected Sodium TNP 08/13/17 04:34 Potassium 3.5 mmol/L (3.5-5.1) 08/13/17 04:34 Chloride 101 mmol/L (98-107) 08/13/17 04:34 Carbon Dioxide 30.9 mmol/L (21-32) 08/13/17 04:34 BUN 8 mg/dL (7-18) 08/13/17 04:34 Creatinine 0.73 mg/dL (0.55-1.02) 08/13/17 04:34 Est GFR (MDRD) Af Amer > 60 (>60) 08/13/17 04:34 Est GFR (MDRD) Non-Af > 60 (>60) 08/13/17 04:34 Glucose 80 mg/dL (65-99) 08/13/17 04:34 Lactic Acid 1.4 mmol/L (0.4-2.0) 08/07/17 10:35 Calcium 9.8 mg/dL (8.5-10.1) 08/13/17 04:34 Corrected Calcium 11.2 mg/dL (8.5-10.1) H 08/13/17 04:34 Magnesium 1.5 mg/dL (1.7-2.9) L 08/12/17 04:54 Total Bilirubin 0.40 mg/dL (0.2-1.0) 08/13/17 04:34 AST 38 Units/L (15-37) H 08/13/17 04:34 ALT 11 Units/L (12-78) L 08/13/17 04:34 Alkaline Phosphatase 72 Units/L (46-116) 08/13/17 04:34 Creatine Kinase 24 Units/L (26-192) L 08/10/17 03:40 CK-MB (CK-2) 1.4 ng/mL (0-4.0) 08/10/17 03:40 CK/CKMB % Calc 5.8 % (<4) 08/10/17 03:40 Troponin I 0.11 ng/mL (0-1.5) 08/10/17 03:40 C-Reactive Protein 92.00 mg/L (0-3.0) H 08/07/17 10:35 B-Natriuretic Peptide 1180 pg/mL (0-79) H* 08/10/17 03:40 Total Protein 6.1 g/dL (6.4-8.2) L 08/13/17 04:34 Albumin 2.2 g/dL (3.4-5.0) L 08/13/17 04:34 Globulin 3.9 g/dL (2.5-4.5) 08/13/17 04:34 Albumin/Globulin Ratio 0.6 Ratio (1.1-2.1) L 08/13/17 04:34 Specimen Type Clean catch urine 08/09/17 15:30 Urine Color Yellow (YELLOW) 08/09/17 15:30 Urine Appearance Clear (CLEAR) 08/09/17 15:30 Urine pH 5.0 (5.0 - 8.0) 08/09/17 15:30 Ur Specific [place] 1.010 (1.000-1.030) 08/09/17 15:30 Urine Protein Negative (NEGATIVE) 08/09/17 15:30 Urine Glucose (UA) Negative (NEGATIVE) 08/09/17 15:30 Urine Ketones Negative (NEGATIVE) 08/09/17 15:30 Urine Occult Blood Negative (NEGATIVE) 08/09/17 15:30 Urine Nitrite Negative (NEGATIVE) 08/09/17 15:30 Urine Bilirubin Negative (NEGATIVE) 08/09/17 15:30 Urine Urobilinogen Normal (NORMAL) 08/09/17 15:30 Ur Leukocyte Esterase Negative (NEGATIVE) 08/09/17 15:30 - Plan (1) Pneumonia Status: Acute Qualifiers: Pneumonia type: due to unspecified organism Laterality: left Lung location: lower lobe of lung Qualified Code(s): J18.1 - Lobar pneumonia, unspecified organism Plan: DOXYCYCLINE, ROCEPHIN 1GM IV DAILY, SUPPLEMENTAL OXYGEN, ROBITUSSIN, TUSSIONEX, RESPIRATORY TREATMENTS, CONTINUE TO MONITOR (2) Generalized weakness Status: Acute (3) Congestive heart failure Status: Acute Qualifiers: Heart failure type: unspecified Heart failure chronicity: acute Qualified Code(s): I50.9 - Heart failure, unspecified Plan: LASIX 40MG IV BID, SUPPLEMENTAL OXYGEN, CONTINUE HOME MEDS. (4) Tachycardia Status: Acute Plan: [id number] PO DIALY, CONTINUE TO MONITOR (5) Hypotension Status: Acute Qualifiers: Hypotension type: unspecified hypotension type Qualified Code(s): I95.9 - Hypotension, unspecified Plan: CONTINUE TO MONITOR
[2017-08-13] MEDS ORDERED: MILK OF MAGNESIA PO PRN (11:12)
[2017-08-13] MEDS ORDERED: COLACE CAP 100 MG PO PRN (11:12)
--- NOTE | 2017-08-13 11:36 | PCM.PROG ---
Progress Note - Progress Note for Day of Date: 08/13/17 - Subjective Subjective: IS BEING TREATED FOR PNEUMONIA, CONGESTIVE HEART FAILURE, AND SHORTNESS OF BREATH. TODAY, SHE IS ALERT AND ORIENTED, LYING IN BED ON MORNING ROUNDS. SHE CONTINUES WITH SHORTNESS OF BREATH, DROWSINESS, AND GENERALIZED WEAKNESS. EXAM REVEALS SCATTERED WHEEZING AND RHONCHI TO BILATERAL LUNG SAL. 1+ PITTING EDEMA NOTED TO BILATERAL LOWER EXTREMITIES. SUPERINTENDENT PLANT REVEALS NORMAL SINUS RHYTHM. HEART RATE HAS REMAINED IN THE 70S-80S SINCE YESTERDAY. HER VITALS TODAY ARE 97.4-80-18-100%-140/67. ABNORMAL LAB VALUES INCLUDE THE FOLLOWING: RBC 3.06, HGB 8.7, HCT 26.0, AST 38, ALT 11, TOTAL PROTEIN 6.1, ALBUMIN 2.2. HER BLOOD PRESSURE HAS INCREASED AND IS STABLE TODAY. TODAY, WE OBTAIN A BILATERAL LOWER EXTREMITY VENOUS DOPPLER DUE TO SWELLING AND DISCOMFORT AND CONSULT PHYSICAL THERAPY AND OCCUPATIONAL THERAPY. OTHERWISE, WE WILL FOLLOW UP WITH AM LABS AND CONTINUE TO MONITOR PATIENT. - Past Medical Family Social History Past Med/Fam/Surg Hx: No changes since H&P Allergies: Allergies naproxen [From Naprosyn] Allergy (Verified 05/28/17 00:35) - Review of Systems ROS: No change since H&P - Vital Signs and I&O's Vital Signs: Temperature 97.4 F Pulse Rate [Right Brachial] 86 Pulse Rate 80 Respiratory Rate 22 Blood Pressure [Right Arm] 143/69 Blood Pressure 158/85 O2 Sat by Pulse Oximetry 99 Intake and Output: Intake & Output 08/10/17 08/11/17 08/12/17 08/13/17 11:59 11:59 11:59 11:59 Intake Total 2222 2508 1859 1698 Output Total 1500 1200 1300 1900 Balance 722 1308 559 -202 - Physical Exam Oriented: Normal Eyes: Normal Ear: Normal Nose: Normal Throat: Normal Respiratory: Generalized, Wheezes, Rhonchi Cardiovascular: Tachycardia : Normal Auscultation: Bowel Sounds: Normal Palpation: Normal Tenderness: Normal Skin: Normal Musculoskeletal: Normal Psychiatric: Normal Mood Description: Calm Affect: Normal Speech Pattern: Clear, Appropriate - Laboratory and Diagnostics Result Diagrams: 08/13/17 04:34 08/13/17 04:34 Labs: 08/07/17 12:22 Blood Blood Culture - Final 08/07/17 12:20 Blood Blood Culture - Final 08/09/17 15:45 Urine,Clean Catch Urine Culture - Final Laboratory WBC 8.5 X10^3/uL (3.6-10.0) 08/13/17 04:34 RBC 3.06 X10^6/uL (3.5-5.4) L 08/13/17 04:34 Hgb 8.7 g/dL (12.0-16.0) L 08/13/17 04:34 Hct 26.0 % (36.0-47.0) L 08/13/17 04:34 MCV 84.8 fL (80.0-100.0) 08/13/17 04:34 MCH 28.6 pg (27.0-34.0) 08/13/17 04:34 MCHC 33.7 g/dL (33.0-35.0) 08/13/17 04:34 RDW 15.1 % (11.6-16.5) 08/13/17 04:34 Plt Count 298 X10^3/uL (150.0-450.0) 08/13/17 04:34 MPV 7.6 fL (7.4-11.0) 08/13/17 04:34 Neut % (Auto) 67.6 % (42.0-75.0) 08/13/17 04:34 Lymph % (Auto) 17.7 % (21.0-51.0) L 08/13/17 04:34 [place] % (Auto) 9.3 % (0.0-13.0) 08/13/17 04:34 Eos % (Auto) 5.0 % (0.9-2.9) H 08/13/17 04:34 Baso % (Auto) 0.4 % (0.2-1.0) 08/13/17 04:34 Neut # (Auto) 5.8 x10^3/uL (2.2-4.8) H 08/13/17 04:34 Lymph # (Auto) 1.5 X10^3/uL (1.3-2.9) 08/13/17 04:34 [place] # (Auto) 0.8 x10^3/uL (0.3-0.8) 08/13/17 04:34 Eos # (Auto) 0.4 x10^3/uL (0.0-0.2) H 08/13/17 04:34 Baso # (Auto) 0.0 X10^3/uL (0.0-0.1) 08/13/17 04:34 Absolute Nucleated RBC 0.1 /100WBC 08/13/17 04:34 Sodium 137 mmol/L (136-145) 08/13/17 04:34 Corrected Sodium TNP 08/13/17 04:34 Potassium 3.5 mmol/L (3.5-5.1) 08/13/17 04:34 Chloride 101 mmol/L (98-107) 08/13/17 04:34 Carbon Dioxide 30.9 mmol/L (21-32) 08/13/17 04:34 BUN 8 mg/dL (7-18) 08/13/17 04:34 Creatinine 0.73 mg/dL (0.55-1.02) 08/13/17 04:34 Est GFR (MDRD) Af Amer > 60 (>60) 08/13/17 04:34 Est GFR (MDRD) Non-Af > 60 (>60) 08/13/17 04:34 Glucose 80 mg/dL (65-99) 08/13/17 04:34 Lactic Acid 1.4 mmol/L (0.4-2.0) 08/07/17 10:35 Calcium 9.8 mg/dL (8.5-10.1) 08/13/17 04:34 Corrected Calcium 11.2 mg/dL (8.5-10.1) H 08/13/17 04:34 Magnesium 1.5 mg/dL (1.7-2.9) L 08/12/17 04:54 Total Bilirubin 0.40 mg/dL (0.2-1.0) 08/13/17 04:34 AST 38 Units/L (15-37) H 08/13/17 04:34 ALT 11 Units/L (12-78) L 08/13/17 04:34 Alkaline Phosphatase 72 Units/L (46-116) 08/13/17 04:34 Creatine Kinase 24 Units/L (26-192) L 08/10/17 03:40 CK-MB (CK-2) 1.4 ng/mL (0-4.0) 08/10/17 03:40 CK/CKMB % Calc 5.8 % (<4) 08/10/17 03:40 Troponin I 0.11 ng/mL (0-1.5) 08/10/17 03:40 C-Reactive Protein 92.00 mg/L (0-3.0) H 08/07/17 10:35 B-Natriuretic Peptide 1180 pg/mL (0-79) H* 08/10/17 03:40 Total Protein 6.1 g/dL (6.4-8.2) L 08/13/17 04:34 Albumin 2.2 g/dL (3.4-5.0) L 08/13/17 04:34 Globulin 3.9 g/dL (2.5-4.5) 08/13/17 04:34 Albumin/Globulin Ratio 0.6 Ratio (1.1-2.1) L 08/13/17 04:34 Specimen Type Clean catch urine 08/09/17 15:30 Urine Color Yellow (YELLOW) 08/09/17 15:30 Urine Appearance Clear (CLEAR) 08/09/17 15:30 Urine pH 5.0 (5.0 - 8.0) 08/09/17 15:30 Ur Specific [place] 1.010 (1.000-1.030) 08/09/17 15:30 Urine Protein Negative (NEGATIVE) 08/09/17 15:30 Urine Glucose (UA) Negative (NEGATIVE) 08/09/17 15:30 Urine Ketones Negative (NEGATIVE) 08/09/17 15:30 Urine Occult Blood Negative (NEGATIVE) 08/09/17 15:30 Urine Nitrite Negative (NEGATIVE) 08/09/17 15:30 Urine Bilirubin Negative (NEGATIVE) 08/09/17 15:30 Urine Urobilinogen Normal (NORMAL) 08/09/17 15:30 Ur Leukocyte Esterase Negative (NEGATIVE) 08/09/17 15:30 - Plan (1) Pneumonia Status: Acute Qualifiers: Pneumonia type: due to unspecified organism Laterality: left Lung location: lower lobe of lung Qualified Code(s): J18.1 - Lobar pneumonia, unspecified organism Plan: DOXYCYCLINE, ROCEPHIN 1GM IV DAILY, SUPPLEMENTAL OXYGEN, ROBITUSSIN, TUSSIONEX, RESPIRATORY TREATMENTS, CONTINUE TO MONITOR (2) Generalized weakness Status: Acute (3) Congestive heart failure Status: Acute Qualifiers: Heart failure type: unspecified Heart failure chronicity: acute Qualified Code(s): I50.9 - Heart failure, unspecified Plan: LASIX 40MG IV BID, SUPPLEMENTAL OXYGEN, CONTINUE HOME MEDS. (4) Tachycardia Status: Acute Plan: [id number] PO DIALY, CONTINUE TO MONITOR (5) Hypotension Status: Acute Qualifiers: Hypotension type: unspecified hypotension type Qualified Code(s): I95.9 - Hypotension, unspecified Plan: CONTINUE TO MONITOR
--- NOTE | 2017-08-13 11:48 | VAS ---
VENOUS ULTRASOUND DOPPLER EXAMINATION OF THE BILATERAL LOWER EXTREMITIES HISTORY: Leg pain Comparison: None TECHNIQUE: Multiple middleton scale and color flow Doppler images of the deep venous system were obtained of the right and left lower extremity. FINDINGS: The deep venous system of the right and left lower extremities were evaluated from the level of the c ommon femoral vein through the popliteal vein. Normal color flow and augmentation can be observed. In addition, normal compression is seen throughout the deep venous system. IMPRESSION: 1. Negative for DVT. Reported By:
[2017-08-13] MEDS: PERCOCET TAB 5/325 MG PO PRN (18:17)
[2017-08-13] MEDS: MAGNESIUM SULFATE 1 GM/100 mL PREMIX 1 GM/100 ML BAG IV PRN ×2 (20:11→21:33)
[2017-08-13] MEDS: TUSSIONEX PENNKINETIC SUSP PO PRN (20:13)
[2017-08-14] MEDS: FORTAZ or TAZICEF INJ 1 GM in NS 100 ML IV + SPIKE MINIBAG* 100 ML IV SCH ×3 (05:30→21:45)
--- NOTE | 2017-08-14 06:08 | RAD ---
HISTORY: Shortness of breath Study: Chest AP portable Comparison: 08/13/2017 Findings: The patient is rotated to the left. There is a left-sided central line with its tip in the superior v arianna cava. The heart remains enlarged. Pulmonary venous congestion is unchanged. No definite interstit ial edema, alveolar edema, or alveolar infiltrates are identified. Bilateral pleural effusions are pr esent and unchanged. The effusions partially obscures the lung markings in the lower lobes bilaterall y. The bony thorax is unremarkable. IMPRESSION: No change bilateral pleural effusions No change cardiomegaly with pulmonary venous congestion Reported By:
[2017-08-14 06:52] LABS: ALANINE AMINOTRANSFERASE 13 Units/L (12-78); ALBUMIN 2.5 g/dL (3.4-5.0); ALKALINE PHOSPHATASE 68 Units/L (46-116); ASPARTATE AMINO TRANSFERASE 27 Units/L (15-37); BLOOD UREA NITROGEN 5 mg/dL (7-18); CALCIUM 10.3 mg/dL (8.5-10.1); CARBON DIOXIDE 30.7 mmol/L (21-32); CHLORIDE 100 mmol/L (98-107); COR CA(FOR HYPOALB) 11.5 mg/dL (8.5-10.1); CREATININE 0.67 mg/dL (0.55-1.02); MAGNESIUM 1.9 mg/dL (1.7-2.9); SODIUM 137 mmol/L (136-145); TOTAL PROTEIN 6.7 g/dL (6.4-8.2); eGFR BLACK RACES > 60 (>60); eGFR NON BLACK RACES > 60 (>60)
[2017-08-14 07:19] LABS: BASOPHILS % (AUTO) 0.4 % (0.2-1.0); EOSINOPHILS # (AUTO) 0.4 x10^3/uL (0.0-0.2); EOSINOPHILS % (AUTO) 3.8 % (0.9-2.9); HEMATOCRIT 29.6 % (36.0-47.0); HEMOGLOBIN 9.8 g/dL (12.0-16.0); LYMPHOCYTES # (AUTO) 1.9 X10^3/uL (1.3-2.9); LYMPHOCYTES % (AUTO) 19.9 % (21.0-51.0); MEAN CORPUSCULAR HEMOGLOBIN 28.1 pg (27.0-34.0); MEAN CORPUSCULAR HGB CONC 33.1 g/dL (33.0-35.0); MEAN CORPUSCULAR VOLUME 84.9 fL (80.0-100.0); MEAN PLATELET VOLUME 7.6 fL (7.4-11.0); MONOCYTES % (AUTO) 10.2 % (0.0-13.0); NEUTROPHILS # (AUTO) 6.2 x10^3/uL (2.2-4.8); NEUTROPHILS % (AUTO) 65.7 % (42.0-75.0); PLATELET COUNT 391 X10^3/uL (150.0-450.0); RED BLOOD COUNT 3.48 X10^6/uL (3.5-5.4); RED CELL DISTRIBUTION WIDTH 14.9 % (11.6-16.5); WHITE BLOOD COUNT 9.5 X10^3/uL (3.6-10.0)
[2017-08-14] MEDS ORDERED: LEXAPRO ONE (08:09)
[2017-08-14] MEDS: ASPIRIN EC 81 MG PO SCH (08:48)
[2017-08-14] MEDS: ALBUMIN HUMAN 25%- 100ML 100 ML IV SCH (08:48)
[2017-08-14] MEDS: HYDROCHLOROTHIAZIDE 25 MG TAB PO SCH (08:49)
[2017-08-14] MEDS: LEVAQUIN PREMIX IV 750 MG 750 MG/150 ML BAG IV SCH (08:49)
[2017-08-14] MEDS: LEXAPRO PO SCH (08:49)
[2017-08-14] MEDS: CALAN SR 120 MG PO SCH (08:49)
[2017-08-14] MEDS: MAG-OX TAB PO SCH (08:49)
[2017-08-14] MEDS: MICRO K EXTEN CAP 10 MEQ PO SCH ×4 (08:49→20:29)
[2017-08-14] MEDS: ROBITUSSIN DM PO SCH ×4 (08:49→20:30)
[2017-08-14] MEDS: PriLOSEC PO SCH ×2 (08:49→20:29)
[2017-08-14] MEDS: DULOXETINE HCL PO SCH (08:50)
[2017-08-14] MEDS: SYNTHROID 100 mcg TAB PO SCH (08:50)
[2017-08-14] MEDS: XOPENEX 1.25 MG/3 ML NEBULE NEB SCH ×4 (09:38→21:23)
[2017-08-14] MEDS: MEGACE PO SCH ×2 (11:17→20:30)
[2017-08-14] MEDS ORDERED: NS 1/2 1000 ML IV 1,000 ML IV ONE (16:37)
[2017-08-14] MEDS: PERCOCET TAB 5/325 MG PO PRN (16:39)
[2017-08-14] MEDS: NS 1/2 1000 ML IV 1,000 ML IV SCH (16:39)
[2017-08-14] MEDS: TUSSIONEX PENNKINETIC SUSP PO PRN (20:30)
--- NOTE | 2017-08-14 21:56 | PCM.PROG ---
Progress Note - Progress Note for Day of Date: 08/14/17 - Subjective Subjective: IS BEING TREATED FOR PNEUMONIA, CONGESTIVE HEART FAILURE, AND SHORTNESS OF BREATH. TODAY, SHE IS ALERT AND ORIENTED, LYING IN BED ON MORNING ROUNDS. SHE CONTINUES WITH SHORTNESS OF BREATH, DROWSINESS, AND GENERALIZED WEAKNESS. FAMILY REPORTS THAT PATIENT IS NOT EATING WELL. EXAM REVEALS SCATTERED WHEEZING AND RHONCHI TO BILATERAL LUNG SAL. 1+ PITTING EDEMA NOTED TO BILATERAL LOWER EXTREMITIES. SENIOR LEAD JAVA DEVELOPER REVEALS NORMAL SINUS RHYTHM. HEART RATE HAS REMAINED IN THE 70S-80S SINCE YESTERDAY. HER VITALS TODAY ARE 97.6-80-24-100%-134/64. SHE IS HEMODYNAMICALLY STABLE TODAY. A VENOUS DOPPLER WAS OBTAINED YESTERDAY AND IS NEGATIVE. TODAY, WE WILL START MEGACE 40MG PO BID. OTHERWISE, WE WILL FOLLOW UP WITH AM LABS AND CONTINUE TO MONITOR PATIENT. - Past Medical Family Social History Past Med/Fam/Surg Hx: No changes since H&P Allergies: Allergies naproxen [From Naprosyn] Allergy (Verified 05/28/17 00:35) - Review of Systems ROS: No change since H&P - Vital Signs and I&O's Vital Signs: Temperature 98 F Pulse Rate [Right Brachial] 105 Pulse Rate 101 Respiratory Rate 27 Blood Pressure [Right Arm] 181/85 Blood Pressure 158/85 O2 Sat by Pulse Oximetry 99 Intake and Output: Intake & Output 08/12/17 08/13/17 08/14/17 08/15/17 11:59 11:59 11:59 11:59 Intake Total 1859 1698 2066 560 Output Total 1300 1900 2050 Balance 559 -202 16 560 - Physical Exam Oriented: Normal Eyes: Normal Ear: Normal Nose: Normal Throat: Normal Respiratory: Generalized, Wheezes, Rhonchi Cardiovascular: Tachycardia : Normal Auscultation: Bowel Sounds: Normal Palpation: Normal Tenderness: Normal Skin: Normal Musculoskeletal: Normal Psychiatric: Normal Mood Description: Calm Affect: Normal Speech Pattern: Clear, Appropriate - Laboratory and Diagnostics Result Diagrams: 08/14/17 05:35 08/14/17 05:35 Labs: 08/07/17 12:22 Blood Blood Culture - Final 08/07/17 12:20 Blood Blood Culture - Final 08/09/17 15:45 Urine,Clean Catch Urine Culture - Final Laboratory WBC 9.5 X10^3/uL (3.6-10.0) 08/14/17 05:35 RBC 3.48 X10^6/uL (3.5-5.4) L 08/14/17 05:35 Hgb 9.8 g/dL (12.0-16.0) L 08/14/17 05:35 Hct 29.6 % (36.0-47.0) L 08/14/17 05:35 MCV 84.9 fL (80.0-100.0) 08/14/17 05:35 MCH 28.1 pg (27.0-34.0) 08/14/17 05:35 MCHC 33.1 g/dL (33.0-35.0) 08/14/17 05:35 RDW 14.9 % (11.6-16.5) 08/14/17 05:35 Plt Count 391 X10^3/uL (150.0-450.0) 08/14/17 05:35 MPV 7.6 fL (7.4-11.0) 08/14/17 05:35 Neut % (Auto) 65.7 % (42.0-75.0) 08/14/17 05:35 Lymph % (Auto) 19.9 % (21.0-51.0) L 08/14/17 05:35 [place] % (Auto) 10.2 % (0.0-13.0) 08/14/17 05:35 Eos % (Auto) 3.8 % (0.9-2.9) H 08/14/17 05:35 Baso % (Auto) 0.4 % (0.2-1.0) 08/14/17 05:35 Neut # (Auto) 6.2 x10^3/uL (2.2-4.8) H 08/14/17 05:35 Lymph # (Auto) 1.9 X10^3/uL (1.3-2.9) 08/14/17 05:35 [place] # (Auto) 1.0 x10^3/uL (0.3-0.8) H 08/14/17 05:35 Eos # (Auto) 0.4 x10^3/uL (0.0-0.2) H 08/14/17 05:35 Baso # (Auto) 0.0 X10^3/uL (0.0-0.1) 08/14/17 05:35 Absolute Nucleated RBC 0.1 /100WBC 08/14/17 05:35 Sodium 137 mmol/L (136-145) 08/14/17 05:35 Corrected Sodium TNP 08/14/17 05:35 Potassium 4.0 mmol/L (3.5-5.1) 08/14/17 05:35 Chloride 100 mmol/L (98-107) 08/14/17 05:35 Carbon Dioxide 30.7 mmol/L (21-32) 08/14/17 05:35 BUN 5 mg/dL (7-18) L 08/14/17 05:35 Creatinine 0.67 mg/dL (0.55-1.02) 08/14/17 05:35 Est GFR (MDRD) Af Amer > 60 (>60) 08/14/17 05:35 Est GFR (MDRD) Non-Af > 60 (>60) 08/14/17 05:35 Glucose 79 mg/dL (65-99) 08/14/17 05:35 Lactic Acid 1.4 mmol/L (0.4-2.0) 08/07/17 10:35 Calcium 10.3 mg/dL (8.5-10.1) H 08/14/17 05:35 Corrected Calcium 11.5 mg/dL (8.5-10.1) H 08/14/17 05:35 Magnesium 1.9 mg/dL (1.7-2.9) 08/14/17 05:35 Total Bilirubin 0.40 mg/dL (0.2-1.0) 08/14/17 05:35 AST 27 Units/L (15-37) 08/14/17 05:35 ALT 13 Units/L (12-78) 08/14/17 05:35 Alkaline Phosphatase 68 Units/L (46-116) 08/14/17 05:35 Creatine Kinase 24 Units/L (26-192) L 08/10/17 03:40 CK-MB (CK-2) 1.4 ng/mL (0-4.0) 08/10/17 03:40 CK/CKMB % Calc 5.8 % (<4) 08/10/17 03:40 Troponin I 0.11 ng/mL (0-1.5) 08/10/17 03:40 C-Reactive Protein 92.00 mg/L (0-3.0) H 08/07/17 10:35 B-Natriuretic Peptide 1180 pg/mL (0-79) H* 08/10/17 03:40 Total Protein 6.7 g/dL (6.4-8.2) 08/14/17 05:35 Albumin 2.5 g/dL (3.4-5.0) L 08/14/17 05:35 Globulin 4.2 g/dL (2.5-4.5) 08/14/17 05:35 Albumin/Globulin Ratio 0.6 Ratio (1.1-2.1) L 08/14/17 05:35 Specimen Type Clean catch urine 08/09/17 15:30 Urine Color Yellow (YELLOW) 08/09/17 15:30 Urine Appearance Clear (CLEAR) 08/09/17 15:30 Urine pH 5.0 (5.0 - 8.0) 08/09/17 15:30 Ur Specific [place] 1.010 (1.000-1.030) 08/09/17 15:30 Urine Protein Negative (NEGATIVE) 08/09/17 15:30 Urine Glucose (UA) Negative (NEGATIVE) 08/09/17 15:30 Urine Ketones Negative (NEGATIVE) 08/09/17 15:30 Urine Occult Blood Negative (NEGATIVE) 08/09/17 15:30 Urine Nitrite Negative (NEGATIVE) 08/09/17 15:30 Urine Bilirubin Negative (NEGATIVE) 08/09/17 15:30 Urine Urobilinogen Normal (NORMAL) 08/09/17 15:30 Ur Leukocyte Esterase Negative (NEGATIVE) 08/09/17 15:30 - Plan (1) Pneumonia Status: Acute Qualifiers: Pneumonia type: due to unspecified organism Laterality: left Lung location: lower lobe of lung Qualified Code(s): J18.1 - Lobar pneumonia, unspecified organism Plan: DOXYCYCLINE, ROCEPHIN 1GM IV DAILY, SUPPLEMENTAL OXYGEN, ROBITUSSIN, TUSSIONEX, RESPIRATORY TREATMENTS, CONTINUE TO MONITOR (2) Generalized weakness Status: Acute (3) Congestive heart failure Status: Acute Qualifiers: Heart failure type: unspecified Heart failure chronicity: acute Qualified Code(s): I50.9 - Heart failure, unspecified Plan: LASIX 40MG IV BID, SUPPLEMENTAL OXYGEN, CONTINUE HOME MEDS. (4) Tachycardia Status: Acute Plan: [id number] PO DIALY, CONTINUE TO MONITOR (5) Hypotension Status: Acute Qualifiers: Hypotension type: unspecified hypotension type Qualified Code(s): I95.9 - Hypotension, unspecified Plan: CONTINUE TO MONITOR
[2017-08-14] MEDS: BUTT CREAM (COMPOUND) TOP PRN (23:25)
[2017-08-15] MEDS: FORTAZ or TAZICEF INJ 1 GM in NS 100 ML IV + SPIKE MINIBAG* 100 ML IV SCH ×3 (05:35→21:00)
[2017-08-15 06:01] LABS: BASOPHILS % (AUTO) 0.4 % (0.2-1.0); EOSINOPHILS # (AUTO) 0.4 x10^3/uL (0.0-0.2); EOSINOPHILS % (AUTO) 4.2 % (0.9-2.9); HEMATOCRIT 30.4 % (36.0-47.0); HEMOGLOBIN 10.3 g/dL (12.0-16.0); LYMPHOCYTES # (AUTO) 2.4 X10^3/uL (1.3-2.9); MEAN CORPUSCULAR HEMOGLOBIN 28.3 pg (27.0-34.0); MEAN CORPUSCULAR HGB CONC 33.7 g/dL (33.0-35.0); MEAN CORPUSCULAR VOLUME 83.7 fL (80.0-100.0); MEAN PLATELET VOLUME 7.4 fL (7.4-11.0); MONOCYTES # (AUTO) 1.1 x10^3/uL (0.3-0.8); MONOCYTES % (AUTO) 10.1 % (0.0-13.0); NEUTROPHILS # (AUTO) 6.6 x10^3/uL (2.2-4.8); NEUTROPHILS % (AUTO) 62.3 % (42.0-75.0); PLATELET COUNT 404 X10^3/uL (150.0-450.0); RED BLOOD COUNT 3.63 X10^6/uL (3.5-5.4); RED CELL DISTRIBUTION WIDTH 14.9 % (11.6-16.5); WHITE BLOOD COUNT 10.5 X10^3/uL (3.6-10.0)
[2017-08-15 06:11] LABS: ALANINE AMINOTRANSFERASE 12 Units/L (12-78); ALBUMIN 2.5 g/dL (3.4-5.0); ALKALINE PHOSPHATASE 67 Units/L (46-116); ASPARTATE AMINO TRANSFERASE 25 Units/L (15-37); BLOOD UREA NITROGEN 6 mg/dL (7-18); CALCIUM 9.9 mg/dL (8.5-10.1); CARBON DIOXIDE 29.9 mmol/L (21-32); CHLORIDE 101 mmol/L (98-107); COR CA(FOR HYPOALB) 11.1 mg/dL (8.5-10.1); CREATININE 0.69 mg/dL (0.55-1.02); SODIUM 137 mmol/L (136-145); TOTAL PROTEIN 6.3 g/dL (6.4-8.2); eGFR BLACK RACES > 60 (>60); eGFR NON BLACK RACES > 60 (>60)
--- NOTE | 2017-08-15 07:20 | RAD ---
HISTORY: Shortness of breath Study: Chest AP portable Comparison: 08/14/2017 Findings: The patient is rotated severely to the left. There is left-sided central line with its tip in the sup erior vena cava. The heart remains enlarged. Pulmonary venous congestion is unchanged. No definite in terstitial edema, alveolar edema or alveolar infiltrates are identified. The lungs are hypo inflated. Bilateral pleural effusions are unchanged. The bony thorax is unremarkable. IMPRESSION: No significant change from the prior examination Reported By:
[2017-08-15] MEDS ORDERED: LEXAPRO ONE (08:06)
[2017-08-15] MEDS: CALAN SR 120 MG PO SCH (08:17)
[2017-08-15] MEDS: ALBUMIN HUMAN 25%- 100ML 100 ML IV SCH (08:17)
[2017-08-15] MEDS: LEXAPRO PO SCH (08:17)
[2017-08-15] MEDS: DULOXETINE HCL PO SCH (08:17)
[2017-08-15] MEDS: LEVAQUIN PREMIX IV 750 MG 750 MG/150 ML BAG IV SCH (08:17)
[2017-08-15] MEDS: ASPIRIN EC 81 MG PO SCH (08:17)
[2017-08-15] MEDS: HYDROCHLOROTHIAZIDE 25 MG TAB PO SCH (08:17)
[2017-08-15] MEDS: MICRO K EXTEN CAP 10 MEQ PO SCH ×4 (08:18→20:51)
[2017-08-15] MEDS: SYNTHROID 100 mcg TAB PO SCH (08:18)
[2017-08-15] MEDS: MAG-OX TAB PO SCH (08:18)
[2017-08-15] MEDS: PriLOSEC PO SCH ×2 (08:18→20:51)
[2017-08-15] MEDS: ROBITUSSIN DM PO SCH ×4 (08:18→20:50)
[2017-08-15] MEDS: MEGACE PO SCH ×2 (08:18→20:51)
[2017-08-15] MEDS: XOPENEX 1.25 MG/3 ML NEBULE NEB SCH ×4 (09:00→21:39)
--- NOTE | 2017-08-15 12:50 | CT ---
HISTORY: AMS, unresponsive to a verbal stimuli, seizure-like activity. Study: Noncontrast CT scan the brain Comparison: No priors Technique: Non contrasted CT images of the brain reviewed in axial, coronal and sagittal planes. Dose reduction techniques utilized automatic exposure control. Findings: The bony calvarium is intact. There is total opacification of the right sphenoid sinus. Remainder of the visualized sinuses are clear. Moderately severe atrophic changes are present with prominent ventr icles and situation cortical sulci. There is asymmetry of the atrophy which is more pronounced involv ing the left cerebral hemisphere. Subdural hygromas are present bilaterally, more so on the left, rel ated to ex vacuo change. Decreased periventricular white matter attenuation is on the basis of microa ngiopathic change. There are small lacunar infarcts present in the basal ganglion regions bilaterally . No evidence of acute edema, mass or hemorrhage is seen atrophic changes are present involving the c erebellum also. IMPRESSION: Moderately severe hand asymmetric cerebral cortical atrophy as described. There are microangiopathic changes as well as small lacunar infarcts in the basal ganglion regions bilaterally. Lesser atrophic changes present involving the cerebellum. No evidence of acute intracranial abnormality is seen. Incidental right sphenoid sinusitis. Reported By:
[2017-08-15] MEDS: NS 1/2 1000 ML IV 1,000 ML IV SCH (20:51)
--- NOTE | 2017-08-16 04:38 | RAD ---
Chest AP portable Indication: Dyspnea Comparison: 08/15/2017 Findings: There is no pneumothorax. There is cardiomegaly and effusions with increased interstitial m arkings. Left subclavian catheter tip is over the SVC. Impression: Cardiomegaly and pulmonary edema with CHF and effusion Reported By:
[2017-08-16] MEDS: FORTAZ or TAZICEF INJ 1 GM in NS 100 ML IV + SPIKE MINIBAG* 100 ML IV SCH ×3 (05:56→21:40)
[2017-08-16 06:36] LABS: BASOPHILS % (AUTO) 0.3 % (0.2-1.0); EOSINOPHILS # (AUTO) 0.4 x10^3/uL (0.0-0.2); EOSINOPHILS % (AUTO) 3.5 % (0.9-2.9); HEMATOCRIT 31.6 % (36.0-47.0); HEMOGLOBIN 10.6 g/dL (12.0-16.0); LYMPHOCYTES # (AUTO) 2.3 X10^3/uL (1.3-2.9); LYMPHOCYTES % (AUTO) 21.5 % (21.0-51.0); MEAN CORPUSCULAR HGB CONC 33.5 g/dL (33.0-35.0); MEAN CORPUSCULAR VOLUME 83.6 fL (80.0-100.0); MEAN PLATELET VOLUME 7.3 fL (7.4-11.0); MONOCYTES # (AUTO) 1.1 x10^3/uL (0.3-0.8); NEUTROPHILS # (AUTO) 7.1 x10^3/uL (2.2-4.8); NEUTROPHILS % (AUTO) 64.7 % (42.0-75.0); PLATELET COUNT 430 X10^3/uL (150.0-450.0); RED BLOOD COUNT 3.78 X10^6/uL (3.5-5.4); RED CELL DISTRIBUTION WIDTH 15.2 % (11.6-16.5); WHITE BLOOD COUNT 10.9 X10^3/uL (3.6-10.0)
[2017-08-16 07:07] LABS: ALANINE AMINOTRANSFERASE 10 Units/L (12-78); ALBUMIN 2.4 g/dL (3.4-5.0); ALKALINE PHOSPHATASE 69 Units/L (46-116); ASPARTATE AMINO TRANSFERASE 28 Units/L (15-37); BLOOD UREA NITROGEN 6 mg/dL (7-18); CALCIUM 10.3 mg/dL (8.5-10.1); CARBON DIOXIDE 30.8 mmol/L (21-32); CHLORIDE 99 mmol/L (98-107); COR CA(FOR HYPOALB) 11.6 mg/dL (8.5-10.1); CREATININE 0.57 mg/dL (0.55-1.02); SODIUM 135 mmol/L (136-145); TOTAL PROTEIN 6.4 g/dL (6.4-8.2); eGFR BLACK RACES > 60 (>60); eGFR NON BLACK RACES > 60 (>60)
[2017-08-16] MEDS: XOPENEX 1.25 MG/3 ML NEBULE NEB SCH ×4 (08:48→21:25)
[2017-08-16] MEDS ORDERED: LEXAPRO ONE (09:35)
[2017-08-16] MEDS: ALBUMIN HUMAN 25%- 100ML 100 ML IV SCH (09:40)
[2017-08-16] MEDS: LEVAQUIN PREMIX IV 750 MG 750 MG/150 ML BAG IV SCH (09:41)
[2017-08-16] MEDS: ROBITUSSIN DM PO SCH ×4 (09:42→21:40)
[2017-08-16] MEDS: SYNTHROID 100 mcg TAB PO SCH (09:43)
[2017-08-16] MEDS: MEGACE PO SCH ×2 (09:43→21:40)
[2017-08-16] MEDS: MICRO K EXTEN CAP 10 MEQ PO SCH ×4 (09:43→21:40)
[2017-08-16] MEDS: HYDROCHLOROTHIAZIDE 25 MG TAB PO SCH (09:44)
[2017-08-16] MEDS: ASPIRIN EC 81 MG PO SCH (09:45)
[2017-08-16] MEDS: MAG-OX TAB PO SCH (09:45)
[2017-08-16] MEDS: LEXAPRO PO SCH (09:46)
[2017-08-16] MEDS: PriLOSEC PO SCH ×2 (09:46→21:40)
[2017-08-16] MEDS: DULOXETINE HCL PO SCH (09:48)
[2017-08-16] MEDS: CALAN SR 120 MG PO SCH (09:49)
[2017-08-16] MEDS: ELIQUIS PO SCH ×2 (13:26→21:40)
--- NOTE | 2017-08-16 15:23 | MRI ---
STUDY: MRI OF THE BRAIN WITHOUT GADOLINIUM HISTORY: Altered mental status. Weakness. Technique: Multiplanar multi-sequence MRI of the brain was obtained utilizing standard departmental p rotocol. Sagittal and axial T1, axial T2, FLAIR, diffusion (DWI/ADC), GRE, and coronal T2 images thro ugh the brain were performed. Comparison: Head CT from August 15, 2017. Findings: The sulci, cisterns and ventricles are prominent consistent with diffuse volume loss. There are confl uent and scattered foci of T2 prolongation in the periventricular and subcortical white matter of bot h hemispheres. This is a nonspecific finding which likely represents microangiopathic change in a pat ient of this age. There is no evidence of acute territorial infarction, hemorrhage, mass, mass effect, or midline shift . There are no abnormal intra-axial or extra-axial fluid collections. The major intracranial vascular flow voids appear intact. The rightvertebral artery appears dominant. IMPRESSION: 1. No evidence of acute intracranial abnormality. 2. Nonspecific white matter change and volume loss. Reported By:
--- NOTE | 2017-08-16 19:14 | PCM.PROG ---
Progress Note - Progress Note for Day of Date: 08/15/17 - Subjective Subjective: IS BEING TREATED FOR PNEUMONIA, CONGESTIVE HEART FAILURE, AND SHORTNESS OF BREATH. TODAY, SHE IS ALERT AND ORIENTED, LYING IN BED ON MORNING ROUNDS. SHE CONTINUES WITH SHORTNESS OF BREATH, DROWSINESS, AND GENERALIZED WEAKNESS. FAMILY REPORTS THAT PATIENT CONTINUES WITH A DECREASED APPETITE. THEY ALSO REPORT THAT DROWSINESS HAS INCREASED SINCE THE PREVIOUS DAY. EXAM REVEALS SCATTERED WHEEZING AND RHONCHI TO BILATERAL LUNG SAL. TRACE EDEMA NOTED TO BILATERAL LOWER EXTREMITIES. CAR CONSTRUCTION SUPERINTENDENT REVEALS NORMAL SINUS RHYTHM. HER VITALS TODAY ARE 98.3-97-24-98%-133/62. ABNORMAL LAB VALUES INCLUDE THE FOLLOWING: WBC 10.5, HGB 10.3, HCT 30.4, BUN 6, TOTAL PROTEIN 6.3, ALBUMIN 2.5. A CHEST XRAY WAS OBTAINED TODAY AND REVEALS PULMONARY VENOUS CONGESTION AND BILATERAL PLEURAL EFFUSIONS. PHYSICAL THERAPY HAS EVALUATED PATIENT AND REPORTS THAT PATIENT REQUIRES MODERATE ASSISTANCE FOR ADLs AND AMBULATION AT THIS TIME. PATIENT WAS INDEPENDENT AND AMBULATORY AT HOME PRIOR TO ADMISSION. TODAY, WE WILL OBTAIN A BRAIN CT. OTHERWISE, WE WILL CONTINUE WITH CURRENT PLAN OF CARE. OTHERWISE, WE WILL FOLLOW UP WITH AM LABS AND CONTINUE TO MONITOR PATIENT. - Past Medical Family Social History Past Med/Fam/Surg Hx: No changes since H&P Allergies: Allergies naproxen [From Naprosyn] Allergy (Verified 05/28/17 00:35) - Review of Systems ROS: No change since H&P - Vital Signs and I&O's Vital Signs: Temperature 98.4 F Pulse Rate [Right Brachial] 87 Pulse Rate 79 Respiratory Rate 24 Blood Pressure [Right Arm] 138/65 Blood Pressure 158/85 O2 Sat by Pulse Oximetry 96 Intake and Output: Intake & Output 08/14/17 08/15/17 08/16/17 08/17/17 11:59 11:59 11:59 11:59 Intake Total 2065 991 1214 867 Output Total 2049 Balance 16 991 1214 867 - Physical Exam Oriented: Normal Eyes: Normal Ear: Normal Nose: Normal Throat: Normal Respiratory: Generalized, Wheezes, Rhonchi Cardiovascular: Tachycardia : Normal Auscultation: Bowel Sounds: Normal Palpation: Normal Tenderness: Normal Skin: Normal Musculoskeletal: Normal Psychiatric: Normal Mood Description: Calm Affect: Normal Speech Pattern: Clear - Laboratory and Diagnostics Result Diagrams: 08/16/17 05:42 08/16/17 05:42 Labs: 08/07/17 12:22 Blood Blood Culture - Final 08/07/17 12:20 Blood Blood Culture - Final 08/09/17 15:45 Urine,Clean Catch Urine Culture - Final Laboratory WBC 10.9 X10^3/uL (3.6-10.0) H 08/16/17 05:42 RBC 3.78 X10^6/uL (3.5-5.4) 08/16/17 05:42 Hgb 10.6 g/dL (12.0-16.0) L 08/16/17 05:42 Hct 31.6 % (36.0-47.0) L 08/16/17 05:42 MCV 83.6 fL (80.0-100.0) 08/16/17 05:42 MCH 28.0 pg (27.0-34.0) 08/16/17 05:42 MCHC 33.5 g/dL (33.0-35.0) 08/16/17 05:42 RDW 15.2 % (11.6-16.5) 08/16/17 05:42 Plt Count 430 X10^3/uL (150.0-450.0) 08/16/17 05:42 MPV 7.3 fL (7.4-11.0) L 08/16/17 05:42 Neut % (Auto) 64.7 % (42.0-75.0) 08/16/17 05:42 Lymph % (Auto) 21.5 % (21.0-51.0) 08/16/17 05:42 [place] % (Auto) 10.0 % (0.0-13.0) 08/16/17 05:42 Eos % (Auto) 3.5 % (0.9-2.9) H 08/16/17 05:42 Baso % (Auto) 0.3 % (0.2-1.0) 08/16/17 05:42 Neut # (Auto) 7.1 x10^3/uL (2.2-4.8) H 08/16/17 05:42 Lymph # (Auto) 2.3 X10^3/uL (1.3-2.9) 08/16/17 05:42 [place] # (Auto) 1.1 x10^3/uL (0.3-0.8) H 08/16/17 05:42 Eos # (Auto) 0.4 x10^3/uL (0.0-0.2) H 08/16/17 05:42 Baso # (Auto) 0.0 X10^3/uL (0.0-0.1) 08/16/17 05:42 Absolute Nucleated RBC 0.1 /100WBC 08/16/17 05:42 Sodium 135 mmol/L (136-145) L 08/16/17 05:42 Corrected Sodium TNP 08/16/17 05:42 Potassium 4.1 mmol/L (3.5-5.1) 08/16/17 05:42 Chloride 99 mmol/L (98-107) 08/16/17 05:42 Carbon Dioxide 30.8 mmol/L (21-32) 08/16/17 05:42 BUN 6 mg/dL (7-18) L 08/16/17 05:42 Creatinine 0.57 mg/dL (0.55-1.02) 08/16/17 05:42 Est GFR (MDRD) Af Amer > 60 (>60) 08/16/17 05:42 Est GFR (MDRD) Non-Af > 60 (>60) 08/16/17 05:42 Glucose 102 mg/dL (65-99) H 08/16/17 05:42 Lactic Acid 1.4 mmol/L (0.4-2.0) 08/07/17 10:35 Calcium 10.3 mg/dL (8.5-10.1) H 08/16/17 05:42 Corrected Calcium 11.6 mg/dL (8.5-10.1) H 08/16/17 05:42 Magnesium 1.9 mg/dL (1.7-2.9) 08/14/17 05:35 Total Bilirubin 0.40 mg/dL (0.2-1.0) 08/16/17 05:42 AST 28 Units/L (15-37) 08/16/17 05:42 ALT 10 Units/L (12-78) L 08/16/17 05:42 Alkaline Phosphatase 69 Units/L (46-116) 08/16/17 05:42 Creatine Kinase 24 Units/L (26-192) L 08/10/17 03:40 CK-MB (CK-2) 1.4 ng/mL (0-4.0) 08/10/17 03:40 CK/CKMB % Calc 5.8 % (<4) 08/10/17 03:40 Troponin I 0.11 ng/mL (0-1.5) 08/10/17 03:40 C-Reactive Protein 92.00 mg/L (0-3.0) H 08/07/17 10:35 B-Natriuretic Peptide 1180 pg/mL (0-79) H* 08/10/17 03:40 Total Protein 6.4 g/dL (6.4-8.2) 08/16/17 05:42 Albumin 2.4 g/dL (3.4-5.0) L 08/16/17 05:42 Globulin 4.0 g/dL (2.5-4.5) 08/16/17 05:42 Albumin/Globulin Ratio 0.6 Ratio (1.1-2.1) L 08/16/17 05:42 Specimen Type Clean catch urine 08/09/17 15:30 Urine Color Yellow (YELLOW) 08/09/17 15:30 Urine Appearance Clear (CLEAR) 08/09/17 15:30 Urine pH 5.0 (5.0 - 8.0) 08/09/17 15:30 Ur Specific [place] 1.010 (1.000-1.030) 08/09/17 15:30 Urine Protein Negative (NEGATIVE) 08/09/17 15:30 Urine Glucose (UA) Negative (NEGATIVE) 08/09/17 15:30 Urine Ketones Negative (NEGATIVE) 08/09/17 15:30 Urine Occult Blood Negative (NEGATIVE) 08/09/17 15:30 Urine Nitrite Negative (NEGATIVE) 08/09/17 15:30 Urine Bilirubin Negative (NEGATIVE) 08/09/17 15:30 Urine Urobilinogen Normal (NORMAL) 08/09/17 15:30 Ur Leukocyte Esterase Negative (NEGATIVE) 08/09/17 15:30 Stl C. diff Tox B Gene Negative (NEGATIVE) 08/16/17 10:28 Stl C. diff [id number] Negative (NEGATIVE) 08/16/17 10:28 - Plan (1) Pneumonia Status: Acute Qualifiers: Pneumonia type: due to unspecified organism Laterality: left Lung location: lower lobe of lung Qualified Code(s): J18.1 - Lobar pneumonia, unspecified organism Plan: DOXYCYCLINE, ROCEPHIN 1GM IV DAILY, SUPPLEMENTAL OXYGEN, ROBITUSSIN, TUSSIONEX, RESPIRATORY TREATMENTS, CONTINUE TO MONITOR (2) Generalized weakness Status: Acute Plan: OBTAIN BRAIN CT (3) Congestive heart failure Status: Acute Qualifiers: Heart failure type: unspecified Heart failure chronicity: acute Qualified Code(s): I50.9 - Heart failure, unspecified Plan: LASIX 40MG IV BID, SUPPLEMENTAL OXYGEN, CONTINUE HOME MEDS. (4) Tachycardia Status: Acute Plan: [id number] PO DIALY, CONTINUE TO MONITOR (5) Hypotension Status: Acute Qualifiers: Hypotension type: unspecified hypotension type Qualified Code(s): I95.9 - Hypotension, unspecified Plan: CONTINUE TO MONITOR
[2017-08-16] MEDS ORDERED: NS 100 ML IV + SPIKE MINIBAG* 100 ML IV ONE (21:30)
[2017-08-16] MEDS: CRESTOR TAB 10 MG PO SCH (21:40)
[2017-08-17] MEDS: VISTARIL PO PRN ×2 (02:28→21:55)
[2017-08-17] MEDS: FORTAZ or TAZICEF INJ 1 GM in NS 100 ML IV + SPIKE MINIBAG* 100 ML IV SCH ×3 (06:00→21:55)
[2017-08-17 06:54] LABS: ALANINE AMINOTRANSFERASE 13 Units/L (12-78); ALBUMIN 2.9 g/dL (3.4-5.0); ALKALINE PHOSPHATASE 69 Units/L (46-116); ASPARTATE AMINO TRANSFERASE 33 Units/L (15-37); BLOOD UREA NITROGEN 4 mg/dL (7-18); CALCIUM 10.5 mg/dL (8.5-10.1); CHLORIDE 100 mmol/L (98-107); COR CA(FOR HYPOALB) 11.4 mg/dL (8.5-10.1); CREATININE 0.62 mg/dL (0.55-1.02); SODIUM 135 mmol/L (136-145); TOTAL PROTEIN 6.7 g/dL (6.4-8.2); eGFR BLACK RACES > 60 (>60); eGFR NON BLACK RACES > 60 (>60)
[2017-08-17 07:05] LABS: BASOPHILS % (AUTO) 0.3 % (0.2-1.0); EOSINOPHILS # (AUTO) 0.4 x10^3/uL (0.0-0.2); EOSINOPHILS % (AUTO) 3.1 % (0.9-2.9); HEMATOCRIT 33.6 % (36.0-47.0); HEMOGLOBIN 11.2 g/dL (12.0-16.0); LYMPHOCYTES # (AUTO) 2.4 X10^3/uL (1.3-2.9); LYMPHOCYTES % (AUTO) 19.3 % (21.0-51.0); MEAN CORPUSCULAR HEMOGLOBIN 27.7 pg (27.0-34.0); MEAN CORPUSCULAR HGB CONC 33.2 g/dL (33.0-35.0); MEAN CORPUSCULAR VOLUME 83.4 fL (80.0-100.0); MEAN PLATELET VOLUME 7.2 fL (7.4-11.0); MONOCYTES # (AUTO) 1.2 x10^3/uL (0.3-0.8); MONOCYTES % (AUTO) 9.6 % (0.0-13.0); NEUTROPHILS # (AUTO) 8.5 x10^3/uL (2.2-4.8); NEUTROPHILS % (AUTO) 67.7 % (42.0-75.0); PLATELET COUNT 453 X10^3/uL (150.0-450.0); RED BLOOD COUNT 4.04 X10^6/uL (3.5-5.4); RED CELL DISTRIBUTION WIDTH 15.1 % (11.6-16.5); WHITE BLOOD COUNT 12.6 X10^3/uL (3.6-10.0)
[2017-08-17] MEDS: XOPENEX 1.25 MG/3 ML NEBULE NEB SCH ×4 (08:34→21:58)
[2017-08-17] MEDS: ALBUMIN HUMAN 25%- 100ML 100 ML IV SCH (09:58)
[2017-08-17] MEDS: LEVAQUIN PREMIX IV 750 MG 750 MG/150 ML BAG IV SCH (09:59)
[2017-08-17] MEDS: MEGACE PO SCH ×2 (10:00→21:55)
[2017-08-17] MEDS: ASPIRIN EC 81 MG PO SCH (10:00)
[2017-08-17] MEDS: MAG-OX TAB PO SCH (10:01)
[2017-08-17] MEDS: SYNTHROID 100 mcg TAB PO SCH (10:01)
[2017-08-17] MEDS: ROBITUSSIN DM PO SCH ×4 (10:01→21:55)
[2017-08-17] MEDS: CALAN SR 120 MG PO SCH (10:02)
[2017-08-17] MEDS: PriLOSEC PO SCH ×2 (10:02→21:55)
[2017-08-17] MEDS: HYDROCHLOROTHIAZIDE 25 MG TAB PO SCH (10:02)
[2017-08-17] MEDS: MICRO K EXTEN CAP 10 MEQ PO SCH ×4 (10:41→21:55)
[2017-08-17] MEDS: CYMBALTA PO SCH (10:41)
[2017-08-17] MEDS: NS 1/2 1000 ML IV 1,000 ML IV SCH ×2 (10:58→20:18)
[2017-08-17] MEDS ORDERED: NS 1/2 1000 ML IV 1,000 ML IV ONE (11:00)
[2017-08-17] MEDS: LASIX IVP SCH ×2 (11:24→21:55)
[2017-08-17] MEDS ORDERED: LASIX IVP ONE (11:26)
[2017-08-17] MEDS: ELIQUIS PO SCH ×2 (13:31→21:55)
[2017-08-17 15:21] LABS: ABG ALLEN TEST POS; ABG BASE EXCESS 6.3 mmol/L (-2.0-2.0); ABG HCO3 29.4 mmol/L (22-26)
--- NOTE | 2017-08-17 18:47 | RAD ---
Examination: AP chest History: Pneumonia Comparison 08/16/2017 Findings: Persistent cardiomegaly with bibasal opacities consistent with airspace disease and pleural effusions. The central vessels remain congested. No complicating pneumothorax is seen. Impression: No significant change since 1 day prior. Stable cardiomegaly and CHF. Complicating pneumo jackie may be present in 1 or both lung bases. Reported By:
[2017-08-17] MEDS: CRESTOR TAB 10 MG PO SCH (21:55)
[2017-08-18 06:03] LABS: BASOPHILS # (AUTO) 0.1 X10^3/uL (0.0-0.1); BASOPHILS % (AUTO) 0.4 % (0.2-1.0); EOSINOPHILS # (AUTO) 0.5 x10^3/uL (0.0-0.2); EOSINOPHILS % (AUTO) 3.3 % (0.9-2.9); HEMOGLOBIN 10.6 g/dL (12.0-16.0); LYMPHOCYTES # (AUTO) 2.9 X10^3/uL (1.3-2.9); LYMPHOCYTES % (AUTO) 21.3 % (21.0-51.0); MEAN CORPUSCULAR HEMOGLOBIN 27.5 pg (27.0-34.0); MEAN CORPUSCULAR HGB CONC 33.2 g/dL (33.0-35.0); MEAN CORPUSCULAR VOLUME 82.8 fL (80.0-100.0); MONOCYTES # (AUTO) 1.2 x10^3/uL (0.3-0.8); MONOCYTES % (AUTO) 8.9 % (0.0-13.0); NEUTROPHILS # (AUTO) 9.1 x10^3/uL (2.2-4.8); NEUTROPHILS % (AUTO) 66.1 % (42.0-75.0); PLATELET COUNT 429 X10^3/uL (150.0-450.0); RED BLOOD COUNT 3.86 X10^6/uL (3.5-5.4); RED CELL DISTRIBUTION WIDTH 15.1 % (11.6-16.5); WHITE BLOOD COUNT 13.8 X10^3/uL (3.6-10.0)
[2017-08-18] MEDS: FORTAZ or TAZICEF INJ 1 GM in NS 100 ML IV + SPIKE MINIBAG* 100 ML IV SCH ×3 (06:17→22:02)
[2017-08-18 06:28] LABS: ALANINE AMINOTRANSFERASE 13 Units/L (12-78); ALBUMIN 3.1 g/dL (3.4-5.0); ALKALINE PHOSPHATASE 61 Units/L (46-116); ASPARTATE AMINO TRANSFERASE 29 Units/L (15-37); BLOOD UREA NITROGEN 5 mg/dL (7-18); CALCIUM 10.1 mg/dL (8.5-10.1); CARBON DIOXIDE 26.5 mmol/L (21-32); CHLORIDE 97 mmol/L (98-107); COR CA(FOR HYPOALB) 10.8 mg/dL (8.5-10.1); CREATININE 0.67 mg/dL (0.55-1.02); SODIUM 133 mmol/L (136-145); TOTAL PROTEIN 6.9 g/dL (6.4-8.2); eGFR BLACK RACES > 60 (>60); eGFR NON BLACK RACES > 60 (>60)
[2017-08-18] MEDS: XOPENEX 1.25 MG/3 ML NEBULE NEB SCH ×4 (08:55→20:46)
[2017-08-18] MEDS: LEVAQUIN PREMIX IV 750 MG 750 MG/150 ML BAG IV SCH (09:19)
[2017-08-18] MEDS: ASPIRIN EC 81 MG PO SCH (09:20)
[2017-08-18] MEDS: MEGACE PO SCH ×2 (09:20→21:56)
[2017-08-18] MEDS: CYMBALTA PO SCH (09:21)
[2017-08-18] MEDS: ELIQUIS PO SCH ×2 (09:21→21:56)
[2017-08-18] MEDS: CALAN SR 120 MG PO SCH (09:21)
[2017-08-18] MEDS: HYDROCHLOROTHIAZIDE 25 MG TAB PO SCH (09:22)
[2017-08-18] MEDS: SYNTHROID 100 mcg TAB PO SCH (09:22)
[2017-08-18] MEDS: PriLOSEC PO SCH ×2 (09:23→21:57)
[2017-08-18] MEDS: MICRO K EXTEN CAP 10 MEQ PO SCH ×4 (09:23→21:56)
[2017-08-18] MEDS: ROBITUSSIN DM PO SCH ×4 (09:24→21:57)
[2017-08-18] MEDS ORDERED: SALINE 3% 15 ML NEB TX ONE (10:47)
[2017-08-18] MEDS ORDERED: SALINE 3% 15 ML NEB TX NEB ONE (10:50)
[2017-08-18] MEDS: MAG-OX TAB PO SCH (11:41)
[2017-08-18] MEDS: NS 1000 ML 1,000 ML IV SCH (11:42)
[2017-08-18] MEDS ORDERED: LASIX IVP ONE (11:46)
[2017-08-18] MEDS ORDERED: NS 100 ML IV + SPIKE MINIBAG* 100 ML IV ONE (14:06)
[2017-08-18] MEDS: PULMICORT NEB TX 0.5 MG NEB SCH (20:46)
[2017-08-18] MEDS: CRESTOR TAB 10 MG PO SCH (21:56)
[2017-08-19] MEDS: NS 1000 ML 1,000 ML IV SCH (05:10)
[2017-08-19] MEDS: FORTAZ or TAZICEF INJ 1 GM in NS 100 ML IV + SPIKE MINIBAG* 100 ML IV SCH ×3 (06:15→22:37)
[2017-08-19 07:13] LABS: BASOPHILS % (AUTO) 0.2 % (0.2-1.0); EOSINOPHILS # (AUTO) 0.4 x10^3/uL (0.0-0.2); EOSINOPHILS % (AUTO) 2.7 % (0.9-2.9); HEMATOCRIT 32.8 % (36.0-47.0); HEMOGLOBIN 10.9 g/dL (12.0-16.0); LYMPHOCYTES # (AUTO) 3.1 X10^3/uL (1.3-2.9); LYMPHOCYTES % (AUTO) 20.9 % (21.0-51.0); MEAN CORPUSCULAR HEMOGLOBIN 27.6 pg (27.0-34.0); MEAN CORPUSCULAR HGB CONC 33.3 g/dL (33.0-35.0); MEAN PLATELET VOLUME 7.3 fL (7.4-11.0); MONOCYTES # (AUTO) 1.4 x10^3/uL (0.3-0.8); MONOCYTES % (AUTO) 9.2 % (0.0-13.0); NEUTROPHILS # (AUTO) 9.8 x10^3/uL (2.2-4.8); PLATELET COUNT 429 X10^3/uL (150.0-450.0); RED BLOOD COUNT 3.96 X10^6/uL (3.5-5.4); WHITE BLOOD COUNT 14.7 X10^3/uL (3.6-10.0)
[2017-08-19 07:31] LABS: ALANINE AMINOTRANSFERASE 15 Units/L (12-78); ALBUMIN 2.9 g/dL (3.4-5.0); ALKALINE PHOSPHATASE 63 Units/L (46-116); ASPARTATE AMINO TRANSFERASE 34 Units/L (15-37); BLOOD UREA NITROGEN 7 mg/dL (7-18); CALCIUM 10.4 mg/dL (8.5-10.1); CARBON DIOXIDE 26.6 mmol/L (21-32); CHLORIDE 97 mmol/L (98-107); COR CA(FOR HYPOALB) 11.3 mg/dL (8.5-10.1); CREATININE 0.72 mg/dL (0.55-1.02); MAGNESIUM 1.4 mg/dL (1.7-2.9); SODIUM 132 mmol/L (136-145); TOTAL PROTEIN 6.8 g/dL (6.4-8.2); eGFR BLACK RACES > 60 (>60); eGFR NON BLACK RACES > 60 (>60)
[2017-08-19] MEDS: PULMICORT NEB TX 0.5 MG NEB SCH ×2 (08:40→20:08)
[2017-08-19] MEDS: XOPENEX 1.25 MG/3 ML NEBULE NEB SCH ×4 (08:40→20:07)
[2017-08-19] MEDS: ROBITUSSIN DM PO SCH ×4 (09:23→20:46)
[2017-08-19] MEDS: CYMBALTA PO SCH (09:23)
[2017-08-19] MEDS: LEVAQUIN PREMIX IV 750 MG 750 MG/150 ML BAG IV SCH (09:23)
[2017-08-19] MEDS: MICRO K EXTEN CAP 10 MEQ PO SCH ×4 (09:23→20:47)
[2017-08-19] MEDS: SYNTHROID 100 mcg TAB PO SCH (09:24)
[2017-08-19] MEDS: MAG-OX TAB PO SCH (09:24)
[2017-08-19] MEDS: PriLOSEC PO SCH ×2 (09:24→20:46)
[2017-08-19] MEDS: MEGACE PO SCH ×2 (09:24→20:47)
[2017-08-19] MEDS: ASPIRIN EC 81 MG PO SCH (09:25)
[2017-08-19] MEDS: ELIQUIS PO SCH ×2 (09:25→20:46)
[2017-08-19] MEDS: HYDROCHLOROTHIAZIDE 25 MG TAB PO SCH (09:26)
[2017-08-19] MEDS: CALAN SR 120 MG PO SCH (09:28)
[2017-08-19] MEDS ORDERED: NS 1000 ML 1,000 ML IV SCH (11:00)
[2017-08-19] MEDS: DIFLUCAN 200 MG IV PREMIX* 200 MG/100 ML BAG IV SCH (11:35)
[2017-08-19 14:50] VITALS: BMI 27.2
[2017-08-19] MEDS: CRESTOR TAB 10 MG PO SCH (20:46)
[2017-08-20] MEDS: FORTAZ or TAZICEF INJ 1 GM in NS 100 ML IV + SPIKE MINIBAG* 100 ML IV SCH (05:18)
[2017-08-20 06:57] LABS: BASOPHILS % (AUTO) 0.3 % (0.2-1.0); EOSINOPHILS # (AUTO) 0.4 x10^3/uL (0.0-0.2); EOSINOPHILS % (AUTO) 3.2 % (0.9-2.9); HEMATOCRIT 31.1 % (36.0-47.0); HEMOGLOBIN 10.2 g/dL (12.0-16.0); LYMPHOCYTES # (AUTO) 2.9 X10^3/uL (1.3-2.9); LYMPHOCYTES % (AUTO) 20.7 % (21.0-51.0); MEAN CORPUSCULAR HEMOGLOBIN 27.4 pg (27.0-34.0); MEAN CORPUSCULAR HGB CONC 32.9 g/dL (33.0-35.0); MEAN CORPUSCULAR VOLUME 83.4 fL (80.0-100.0); MEAN PLATELET VOLUME 7.3 fL (7.4-11.0); MONOCYTES # (AUTO) 1.2 x10^3/uL (0.3-0.8); MONOCYTES % (AUTO) 8.7 % (0.0-13.0); NEUTROPHILS # (AUTO) 9.3 x10^3/uL (2.2-4.8); NEUTROPHILS % (AUTO) 67.1 % (42.0-75.0); PLATELET COUNT 402 X10^3/uL (150.0-450.0); RED BLOOD COUNT 3.73 X10^6/uL (3.5-5.4); WHITE BLOOD COUNT 13.8 X10^3/uL (3.6-10.0)
--- NOTE | 2017-08-20 07:06 | RAD ---
HISTORY: Shortness of breath Study: Chest AP portable Comparison: 08/17/2017 Findings: The patient is rotated to the left. There is a left-sided central line with its tip in superior vena cava. The heart is enlarged. No definite congestive heart failure is identified. The upper lung field s are clear. Bilateral pleural effusions are unchanged but obscures the lung markings in the lung bas es. The bony thorax is unremarkable. IMPRESSION: Moderate cardiomegaly without congestive heart failure Bilateral pleural effusions obscuring the lung markings in the lower lobes. Reported By:
[2017-08-20 07:11] LABS: ALANINE AMINOTRANSFERASE 15 Units/L (12-78); ALBUMIN 2.8 g/dL (3.4-5.0); ALKALINE PHOSPHATASE 59 Units/L (46-116); ASPARTATE AMINO TRANSFERASE 35 Units/L (15-37); BLOOD UREA NITROGEN 9 mg/dL (7-18); CALCIUM 9.8 mg/dL (8.5-10.1); CARBON DIOXIDE 24.1 mmol/L (21-32); CHLORIDE 99 mmol/L (98-107); COR CA(FOR HYPOALB) 10.8 mg/dL (8.5-10.1); CREATININE 0.75 mg/dL (0.55-1.02); SODIUM 133 mmol/L (136-145); TOTAL PROTEIN 6.6 g/dL (6.4-8.2); eGFR BLACK RACES > 60 (>60); eGFR NON BLACK RACES > 60 (>60)
[2017-08-20] MEDS: PULMICORT NEB TX 0.5 MG NEB SCH (08:30)
[2017-08-20] MEDS: XOPENEX 1.25 MG/3 ML NEBULE NEB SCH ×2 (08:30→12:15)
[2017-08-20] MEDS: DIFLUCAN 200 MG IV PREMIX* 200 MG/100 ML BAG IV SCH (09:44)
[2017-08-20] MEDS: LEVAQUIN PREMIX IV 750 MG 750 MG/150 ML BAG IV SCH (09:44)
[2017-08-20] MEDS: HYDROCHLOROTHIAZIDE 25 MG TAB PO SCH (09:44)
[2017-08-20] MEDS: MAG-OX TAB PO SCH (09:45)
[2017-08-20] MEDS: CYMBALTA PO SCH (09:45)
[2017-08-20] MEDS: CALAN SR 120 MG PO SCH (09:45)
[2017-08-20] MEDS: SYNTHROID 100 mcg TAB PO SCH (09:45)
[2017-08-20] MEDS: MEGACE PO SCH (09:45)
[2017-08-20] MEDS: ROBITUSSIN DM PO SCH (09:45)
[2017-08-20] MEDS: PriLOSEC PO SCH (09:45)
[2017-08-20] MEDS: ELIQUIS PO SCH (09:46)
[2017-08-20] MEDS: MICRO K EXTEN CAP 10 MEQ PO SCH (09:46)
[2017-08-20] MEDS: ASPIRIN EC 81 MG PO SCH (09:46)
[2017-08-20 15:11] VITALS: BP 136/65
== END 2017-08-20 14:55 | DRG 194 ==
LOC: ER 09:59 → MED/SURG 13:51 → ICU 08-09 15:45 → OBSVTOIN 08-09 15:45
PROVIDERS: ADMIT Internal Medicine; ATTEND Internal Medicine
PROC: 05H633Z Insertion of Infusion Device into Left Subclavian Vein, Percutaneous Approach (ICD-10-PCS; principal; 2017-08-09)
DX: J18.8 Other pneumonia, unspecified organism (principal); I50.9 Heart failure, unspecified; R06.02 Shortness of breath; R94.30 Abnormal result of cardiovascular function study, unspecified; J90 Pleural effusion, not elsewhere classified; F41.8 Other specified anxiety disorders; M19.90 Unspecified osteoarthritis, unspecified site; F32.89 Other specified depressive episodes; K21.9 Gastro-esophageal reflux disease without esophagitis; E03.8 Other specified hypothyroidism; E86.0 Dehydration; I87.2 Venous insufficiency (chronic) (peripheral); R00.0 Tachycardia, unspecified; I51.7 Cardiomegaly; R51 Headache; R07.89 Other chest pain; I95.89 Other hypotension; R62.7 Adult failure to thrive; R79.82 Elevated C-reactive protein (CRP); R26.89 Other abnormalities of gait and mobility
CPT/HCPCS: 36415; 36556; 36600; 70450; 70551; 71045; 80053; 81003; 82550; 82553; 82803; 83605; 83735; 83880; 84132; 84484; 85025; 86140; 87040; 87070; 87086; 87205; 87493; 93005; 93010; 93970; 94640; 94669; 94760; 96365; 96374; 97535; 99231; 99284; A4222; G8978; G8979; G8990; G8991; P9047; Q0177; S0179; G0378; J0713; J1265; J1450; J1940; J1956; J2270; J3490; J7620; J7626

== ENCOUNTER → 2017-08-23 | Outpatient (CLI) | payer OTHER ==
[2017-08-20 15:11] VITALS: BP 136/65
[~2017-08-23] MED LIST: ELIQUIS ONE
--- NOTE | 2017-08-23 14:52 | RAD ---
New Examination: Lumbar spine, AP and lateral views History: Back pain Findings: There is a moderately severe levoscoliosis centered at L3 with rotatory component. Osteopen ia is present. There is compression deformity involving T12 and L1 vertebrae without significant disp lacement or definite bone destruction. Marginal osteophytes at T12-L1 are present. No osteolytic or o steoblastic disease identified and no sacroiliac abnormality. Impression: Age-appropriate osteopenia. Compression fracture deformities T12 and L1 probably nonacute . Correlate with history of injury. Lumbar rotary scoliosis.Bibasal opacities in the chest consistent with pleural fluid and possible airspace disease in 1 or both lower lungs. Reported By:
== END | disposition home or self-care (01) | DRG 552 ==
LOC: RAD 13:47
PROVIDERS: ATTEND Internal Medicine
DX: M54.5 Low back pain (principal); M85.88 Other specified disorders of bone density and structure, other site; M43.8X5 Other specified deforming dorsopathies, thoracolumbar region
CPT/HCPCS: 72100

== ENCOUNTER 2024-06-30 12:26 | Observation (INO) ==
[2024-06-30 16:16] LABS: BASOPHILS # (AUTO) 0.1 X10^3/uL (0.0-0.1); BASOPHILS % (AUTO) 1.4 % (0.2-1.0); EOSINOPHILS # (AUTO) 0.2 x10^3/uL (0.0-0.2); EOSINOPHILS % (AUTO) 3.6 % (0.9-2.9); HEMATOCRIT 35.9 % (36.0-47.0); LYMPHOCYTES # (AUTO) 2.5 X10^3/uL (1.3-2.9); LYMPHOCYTES % (AUTO) 40.2 % (21.0-51.0); MEAN CORPUSCULAR HEMOGLOBIN 30.9 pg (27.0-34.0); MEAN CORPUSCULAR HGB CONC 33.3 g/dL (33.0-35.0); MEAN CORPUSCULAR VOLUME 92.8 fL (80.0-100.0); MEAN PLATELET VOLUME 7.7 fL (7.4-11.0); MONOCYTES # (AUTO) 0.5 x10^3/uL (0.3-0.8); MONOCYTES % (AUTO) 7.8 % (0.0-13.0); PLATELET COUNT 255 X10^3/uL (150.0-450.0); RED BLOOD COUNT 3.87 X10^6/uL (3.5-5.4); RED CELL DISTRIBUTION WIDTH 13.9 % (11.6-16.5); WHITE BLOOD COUNT 6.3 X10^3/uL (3.6-10.0)
[2024-06-30 16:18] LABS: BLOOD UREA NITROGEN 15 mg/dL (7-18); CALCIUM 9.6 mg/dL (8.5-10.1); CARBON DIOXIDE 29.2 mmol/L (21-32); CHLORIDE 101 mmol/L (98-107); CREATININE 1.83 mg/dL (0.55-1.02); GLUCOSE 96 mg/dL (65-99); POTASSIUM 4.1 mmol/L (3.5-5.1); SODIUM 141 mmol/L (136-145); eGFR NON BLACK RACES 28 (>60)
--- NOTE | 2024-06-30 16:37 | VAS ---
EXAM: LOWER EXT VENOUS, BILATERAL HISTORY: LE swelling, redness; RODOLFO LE SWELLING,REDNESS COMPARISON: No relevant prior studies available. TECHNIQUE: Grayscale and color Doppler images of the lower extremities. FINDINGS: Right lower extremity: Common femoral, femoral, popliteal and posterior tibial veins demonstrate normal compressibility, col or Doppler flow, waveforms and augmentation with no filling defects. Soft tissues: Unremarkable Left lower extremity: Common femoral, femoral, popliteal and posterior tibial veins demonstrate normal compressibility, col or Doppler flow, waveforms and augmentation with no filling defects. Soft tissues:Unremarkable IMPRESSION: No evidence of deep venous thrombus in either lower extremity. THIS IS AN ELECTRONICALLY VERIFIED FINAL REPORT 06/30/2024 4:34 PM - Electronically signed by Virgil Garnica MD
[2024-06-30 16:52] LABS: ALANINE AMINOTRANSFERASE 16 Units/L (12-78); ALBUMIN 3.8 g/dL (3.4-5.0); ALKALINE PHOSPHATASE 86 Units/L (46-116); ASPARTATE AMINO TRANSFERASE 23 Units/L (15-37); TOTAL PROTEIN 8.2 g/dL (6.4-8.2)
[2024-06-30 16:59] VITALS: BMI 28.3
[2024-06-30] MEDS: ROCEPHIN VIAL 1 GRAM 1 G in NS 100 ML IV 100 ML IV SCH (18:01)
[2024-06-30] MEDS: NS 1,000 ML IV 1,000 ML IV SCH (18:02)
[2024-07-01 06:04] LABS: BASOPHILS % (AUTO) 0.9 % (0.2-1.0); EOSINOPHILS # (AUTO) 0.3 x10^3/uL (0.0-0.2); EOSINOPHILS % (AUTO) 5.4 % (0.9-2.9); HEMATOCRIT 36.2 % (36.0-47.0); LYMPHOCYTES # (AUTO) 2.2 X10^3/uL (1.3-2.9); LYMPHOCYTES % (AUTO) 46.4 % (21.0-51.0); MEAN CORPUSCULAR HEMOGLOBIN 30.7 pg (27.0-34.0); MEAN CORPUSCULAR HGB CONC 33.1 g/dL (33.0-35.0); MEAN PLATELET VOLUME 7.3 fL (7.4-11.0); MONOCYTES # (AUTO) 0.4 x10^3/uL (0.3-0.8); MONOCYTES % (AUTO) 8.1 % (0.0-13.0); NEUTROPHILS # (AUTO) 1.8 x10^3/uL (2.2-4.8); NEUTROPHILS % (AUTO) 39.2 % (42.0-75.0); PLATELET COUNT 249 X10^3/uL (150.0-450.0); RED BLOOD COUNT 3.89 X10^6/uL (3.5-5.4); RED CELL DISTRIBUTION WIDTH 13.5 % (11.6-16.5); WHITE BLOOD COUNT 4.7 X10^3/uL (3.6-10.0)
[2024-07-01 06:19] LABS: ALANINE AMINOTRANSFERASE 14 Units/L (12-78); ALBUMIN 3.2 g/dL (3.4-5.0); ALKALINE PHOSPHATASE 74 Units/L (46-116); ASPARTATE AMINO TRANSFERASE 22 Units/L (15-37); BLOOD UREA NITROGEN 15 mg/dL (7-18); CALCIUM 9.4 mg/dL (8.5-10.1); CARBON DIOXIDE 28.3 mmol/L (21-32); CHLORIDE 107 mmol/L (98-107); CREATININE 1.37 mg/dL (0.55-1.02); GLUCOSE 83 mg/dL (65-99); POTASSIUM 4.2 mmol/L (3.5-5.1); SODIUM 143 mmol/L (136-145); TOTAL PROTEIN 7.3 g/dL (6.4-8.2); eGFR NON BLACK RACES 39 (>60)
[2024-07-01] MEDS ORDERED: FLEXERIL TAB 10 MG PO PRN (08:46)
[2024-07-01] MEDS ORDERED: PERCOCET TAB 5/325 MG PO PRN (08:47)
[2024-07-01] MEDS: PriLOSEC PO SCH (09:49)
[2024-07-01] MEDS: ZYLOPRIM PO SCH (09:50)
[2024-07-01] MEDS: NEURONTIN CAP 100 MG PO SCH (09:50)
[2024-07-01] MEDS: SYNTHROID 88 mcg TAB PO SCH (09:50)
[2024-07-01] MEDS: ELIQUIS PO SCH (09:50)
[2024-07-01] MEDS: FARXIGA PO SCH (09:50)
[2024-07-01] MEDS: SINGULAIR TAB 10 MG PO SCH (10:05)
--- NOTE | 2024-07-01 10:50 | DR.H&P ---
H&P History & Physical for Day of: H&P Date: 07/01/24 Chief Complaint Chief Complaint: right leg pain and redness History of Present Illness History of Present Illness: Ms Watson is an 83y/o female with a PMH of CKD, GERD, CVA, HTN, HLD presented with worsening right leg pain and redness. She was being treated outpatient for cellulitis for the past week with antibiotics. She also had Venous US done which was negative for DVT. She states her pain and redness has not improved so she was directly admitted from PCP office. She is currently on IV rocephin. She reports slightly improvement in the redness. Venous US is negative for DVT. Labs/imaging reviewed: -WBC 4.7 Hgb 12 Cr 1.37 CRP 3.20 -US neg Plan: continue IV rocephin, add clindamycin. Keep leg elevated. Monitor erythema. Resume home medications. Continue hydration. Replace electrolytes as per protocol. Monitor AM labs/imaging. 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, Ortho Surgery and Tonsillectomy Family History Family Medical History: Cancer and Hypertension Social History Does any household member use tobacco: No Alcohol Use: None Drug Use: None Medications Home Medications: Home Medications Medication Instructions Recorded Confirmed Type gabapentin 300 mg capsule 300 mg PO TID 07/18/13 06/30/24 History cholecalciferol (vitamin D3) 125 125 mcg PO DAILY 02/02/21 06/30/24 History mcg (5,000 unit) tablet (Vitamin D3) dextroamphetamine-amphetamine 30 30 mg PO BID 02/02/21 06/30/24 History mg tablet (Adderall) potassium chloride 10 mEq 10 meq PO DAILY 02/02/21 06/30/24 History capsule,extended release cyclobenzaprine 5 mg tablet 5 mg PO QHS PRN muscle relaxation 07/30/23 06/30/24 History for legs montelukast 10 mg tablet 10 mg PO QDAY 07/30/23 06/30/24 History allopurinol 100 mg tablet 100 mg PO DAILY 06/30/24 06/30/24 History apixaban 2.5 mg tablet 2.5 mg PO BID 06/30/24 06/30/24 History biotin 10,000 mcg capsule 10,000 mcg PO DAILY 06/30/24 06/30/24 History dapagliflozin propanediol 10 mg 10 mg PO DAILY 06/30/24 06/30/24 History tablet dextroamphetamine-amphetamine 30 30 mg PO BID 06/30/24 06/30/24 History mg tablet (Adderall) furosemide 20 mg tablet 20 mg PO DAILY 06/30/24 06/30/24 History levothyroxine 88 mcg tablet 88 mcg PO DAILY 06/30/24 06/30/24 History melatonin 5 mg tablet 10 mg PO HS 06/30/24 06/30/24 History multivit-minerals no.73-iron 1 cap PO .THREETIMESAWEEK 06/30/24 06/30/24 History fumarate 106 mg-folic acid 1 mg capsule (Hemocyte-Plus) omeprazole 40 mg capsule,delayed 40 mg PO DAILY 06/30/24 06/30/24 History release oxycodone-acetaminophen 5 mg-325 1 tab PO TID PRN Pain, Severe 06/30/24 06/30/24 History mg tablet sennosides 25 mg tablet 25 mg PO HS 06/30/24 06/30/24 History Allergies Allergies Allergy/AdvReac Type Severity Reaction Status Date / Time naproxen [From Naprosyn] Allergy Severe facial and Verified 06/18/24 09:46 throat swelling Labs 07/01/24 05:48 07/01/24 05:48 Labs: Laboratory WBC 4.7 X10^3/uL (3.6-10.0) 07/01/24 05:48 RBC 3.89 X10^6/uL (3.5-5.4) 07/01/24 05:48 Hgb 12.0 g/dL (12.0-16.0) 07/01/24 05:48 Hct 36.2 % (36.0-47.0) 07/01/24 05:48 MCV 93.0 fL (80.0-100.0) 07/01/24 05:48 MCH 30.7 pg (27.0-34.0) 07/01/24 05:48 MCHC 33.1 g/dL (33.0-35.0) 07/01/24 05:48 RDW 13.5 % (11.6-16.5) 07/01/24 05:48 Plt Count 249 X10^3/uL (150.0-450.0) 07/01/24 05:48 MPV 7.3 fL (7.4-11.0) L 07/01/24 05:48 Neut % (Auto) 39.2 % (42.0-75.0) L 07/01/24 05:48 Lymph % (Auto) 46.4 % (21.0-51.0) 07/01/24 05:48 [place] % (Auto) 8.1 % (0.0-13.0) 07/01/24 05:48 Eos % (Auto) 5.4 % (0.9-2.9) H 07/01/24 05:48 Baso % (Auto) 0.9 % (0.2-1.0) 07/01/24 05:48 Neut # (Auto) 1.8 x10^3/uL (2.2-4.8) L 07/01/24 05:48 Lymph # (Auto) 2.2 X10^3/uL (1.3-2.9) 07/01/24 05:48 [place] # (Auto) 0.4 x10^3/uL (0.3-0.8) 07/01/24 05:48 Eos # (Auto) 0.3 x10^3/uL (0.0-0.2) H 07/01/24 05:48 Baso # (Auto) 0.0 X10^3/uL (0.0-0.1) 07/01/24 05:48 Absolute Nucleated RBC 0.1 /100WBC 07/01/24 05:48 Sodium 143 mmol/L (136-145) 07/01/24 05:48 Corrected Sodium TNP 07/01/24 05:48 Potassium 4.2 mmol/L (3.5-5.1) 07/01/24 05:48 Chloride 107 mmol/L (98-107) 07/01/24 05:48 Carbon Dioxide 28.3 mmol/L (21-32) 07/01/24 05:48 BUN 15 mg/dL (7-18) 07/01/24 05:48 Creatinine 1.37 mg/dL (0.55-1.02) H 07/01/24 05:48 Est GFR (MDRD) Af Amer 48 (>60) L 07/01/24 05:48 Est GFR (MDRD) Non-Af 39 (>60) L 07/01/24 05:48 Glucose 83 mg/dL (65-99) 07/01/24 05:48 Calcium 9.4 mg/dL (8.5-10.1) 07/01/24 05:48 Corrected Calcium 10.0 mg/dL (8.5-10.1) 07/01/24 05:48 Total Bilirubin 0.30 mg/dL (0.2-1.0) 07/01/24 05:48 AST 22 Units/L (15-37) 07/01/24 05:48 ALT 14 Units/L (12-78) 07/01/24 05:48 Alkaline Phosphatase 74 Units/L (46-116) 07/01/24 05:48 C-Reactive Protein 3.20 mg/L (0-3.0) H 06/30/24 15:57 Total Protein 7.3 g/dL (6.4-8.2) 07/01/24 05:48 Albumin 3.2 g/dL (3.4-5.0) L 07/01/24 05:48 Globulin 4.1 g/dL (2.5-4.5) 07/01/24 05:48 Albumin/Globulin Ratio 0.8 Ratio (1.1-2.1) L 07/01/24 05:48 Review of Systems Constitutional: No Symptoms Reported Eyes: No Symptoms Reported ENT: No Symptoms Reported Respiratory: No Symptoms Reported Cardiovascular: No Symptoms Reported Gastrointestinal: No Symptoms Reported Genitourinary: No Symptoms Reported Musculoskeletal: Leg Pain Skin: Other (erythema ) Neurological: No Symptoms Reported Physical Exam Vital Signs: Vital Signs Temperature 98.1 F Pulse Rate [Right Radial] 69 Respiratory Rate 19 Blood Pressure [Right Arm] 148/73 O2 Sat by Pulse Oximetry 96 Oriented: Normal Eyes: Normal Ear: Normal Throat: Normal Respiratory: Clear Throughout Cardiovascular: Normal Auscultation: Bowel Sounds: Normal Palpation: Normal Tenderness: Normal Skin: Red, Tender and Hot (RLL) Musculoskeletal: Right and Leg Psychiatric: Normal Mood Description: Calm Affect: Normal Speech Pattern: Clear and Appropriate Assessment/Plan (1) Cellulitis: Qualifiers: Site of cellulitis: extremity Site of cellulitis of extremity: lower extremity Laterality: right Qualified Code(s): L03.115 - Cellulitis of right lower limb Status: Acute (2) PVD (peripheral vascular disease): Status: Chronic (3) Gastroesophageal reflux disease with esophagitis: Qualifiers: Esophagitis bleeding: unspecified whether hemorrhage Qualified Code(s): K21.00 - Gastro-esophageal reflux disease with esophagitis, without bleeding Status: Chronic (4) CVA (cerebral vascular accident): Qualifiers: CVA mechanism: unspecified Qualified Code(s): I63.9 - Cerebral infarction, unspecified Status: Chronic (5) CKD (chronic kidney disease): Qualifiers: Chronic kidney disease stage: unspecified stage Qualified Code(s): N18.9 - Chronic kidney disease, unspecified Status: Chronic Review H&P Reviewed: Yes Patient was examined?: Yes
[2024-07-01] MEDS: CLEOCIN 300 MG IV PREMIX 300 MG/50 ML BAG IV SCH (13:04)
[2024-07-01] MEDS: MELATONIN PO SCH (21:55)
[2024-07-01] MEDS: CRESTOR TAB 10 MG PO SCH (21:55)
[2024-07-02 05:45] LABS: BASOPHILS % (AUTO) 0.4 % (0.2-1.0); EOSINOPHILS # (AUTO) 0.2 x10^3/uL (0.0-0.2); EOSINOPHILS % (AUTO) 4.7 % (0.9-2.9); HEMATOCRIT 34.2 % (36.0-47.0); HEMOGLOBIN 11.3 g/dL (12.0-16.0); LYMPHOCYTES # (AUTO) 1.7 X10^3/uL (1.3-2.9); LYMPHOCYTES % (AUTO) 34.1 % (21.0-51.0); MEAN CORPUSCULAR HEMOGLOBIN 30.9 pg (27.0-34.0); MEAN CORPUSCULAR HGB CONC 33.2 g/dL (33.0-35.0); MEAN CORPUSCULAR VOLUME 93.2 fL (80.0-100.0); MEAN PLATELET VOLUME 7.2 fL (7.4-11.0); MONOCYTES # (AUTO) 0.4 x10^3/uL (0.3-0.8); MONOCYTES % (AUTO) 8.3 % (0.0-13.0); NEUTROPHILS # (AUTO) 2.7 x10^3/uL (2.2-4.8); NEUTROPHILS % (AUTO) 52.5 % (42.0-75.0); PLATELET COUNT 259 X10^3/uL (150.0-450.0); RED BLOOD COUNT 3.66 X10^6/uL (3.5-5.4); RED CELL DISTRIBUTION WIDTH 13.7 % (11.6-16.5); WHITE BLOOD COUNT 5.1 X10^3/uL (3.6-10.0)
[2024-07-02 05:59] LABS: ALANINE AMINOTRANSFERASE 12 Units/L (12-78); ALBUMIN 2.8 g/dL (3.4-5.0); ALKALINE PHOSPHATASE 63 Units/L (46-116); ASPARTATE AMINO TRANSFERASE 18 Units/L (15-37); BLOOD UREA NITROGEN 8 mg/dL (7-18); CALCIUM 9.5 mg/dL (8.5-10.1); CARBON DIOXIDE 28.5 mmol/L (21-32); CHLORIDE 108 mmol/L (98-107); COR CA(FOR HYPOALB) 10.5 mg/dL (8.5-10.1); CREATININE 1.01 mg/dL (0.55-1.02); GLUCOSE 92 mg/dL (65-99); SODIUM 143 mmol/L (136-145); TOTAL PROTEIN 6.6 g/dL (6.4-8.2); eGFR NON BLACK RACES 56 (>60)
[2024-07-02] MEDS: NS 250 ML IV 0 ML IV ONE (07:21)
[2024-07-02 11:04] VITALS: BP 161/82; PULSE 92; RESP 18; TEMP 98.3; O2SAT 96
--- NOTE | 2024-07-02 13:45 | W.DIS.FURT ---
Summary of Discharge Discharge Summary of Date Date of Exam: 07/02/24 Admission Diagnosis Vital Signs: Vital Signs (72 hours) 06/30/24 16:30 06/30/24 17:26 06/30/24 20:00 Temperature 98.3 F 98.0 F Pulse Rate [Right Radial] 99 H 85 Respiratory Rate 20 19 Blood Pressure [Right Arm] 139/72 155/72 O2 Sat by Pulse Oximetry 98 98 Oxygen Delivery Method Room Air Room Air Room Air 06/30/24 19:00 07/01/24 00:00 07/01/24 04:00 Temperature 97.9 F 98.1 F Pulse Rate [Right Radial] 92 H 69 Respiratory Rate 18 19 Blood Pressure [Right Arm] 145/73 148/73 O2 Sat by Pulse Oximetry 96 96 Oxygen Delivery Method Room Air Room Air Room Air 07/01/24 08:00 07/01/24 12:00 07/01/24 07:00 Temperature 97.3 F L 97.7 F Pulse Rate [Right Radial] 76 71 Respiratory Rate 19 18 Blood Pressure [Right Arm] 141/67 157/69 O2 Sat by Pulse Oximetry 95 98 Oxygen Delivery Method Room Air Room Air Room Air 07/01/24 16:00 07/01/24 20:00 07/01/24 23:28 Temperature 97.7 F 98.1 F 97.8 F Pulse Rate [Right Radial] 92 H 96 H 87 Respiratory Rate 17 18 16 Blood Pressure [Right Arm] 147/73 147/72 161/73 O2 Sat by Pulse Oximetry 94 L 97 95 Oxygen Delivery Method Room Air Room Air Room Air 07/01/24 19:00 07/02/24 04:00 Temperature 97.9 F Pulse Rate [Right Radial] 85 Respiratory Rate 15 Blood Pressure [Right Arm] 160/70 O2 Sat by Pulse Oximetry 95 Oxygen Delivery Method Room Air Room Air Labs: Laboratory Last Values WBC 5.1 X10^3/uL (3.6-10.0) 07/02/24 05:31 RBC 3.66 X10^6/uL (3.5-5.4) 07/02/24 05:31 Hgb 11.3 g/dL (12.0-16.0) L 07/02/24 05:31 Hct 34.2 % (36.0-47.0) L 07/02/24 05:31 MCV 93.2 fL (80.0-100.0) 07/02/24 05:31 MCH 30.9 pg (27.0-34.0) 07/02/24 05:31 MCHC 33.2 g/dL (33.0-35.0) 07/02/24 05:31 RDW 13.7 % (11.6-16.5) 07/02/24 05:31 Plt Count 259 X10^3/uL (150.0-450.0) 07/02/24 05:31 MPV 7.2 fL (7.4-11.0) L 07/02/24 05:31 Neut % (Auto) 52.5 % (42.0-75.0) 07/02/24 05:31 Lymph % (Auto) 34.1 % (21.0-51.0) 07/02/24 05:31 [place] % (Auto) 8.3 % (0.0-13.0) 07/02/24 05:31 Eos % (Auto) 4.7 % (0.9-2.9) H 07/02/24 05:31 Baso % (Auto) 0.4 % (0.2-1.0) 07/02/24 05:31 Neut # (Auto) 2.7 x10^3/uL (2.2-4.8) 07/02/24 05:31 Lymph # (Auto) 1.7 X10^3/uL (1.3-2.9) 07/02/24 05:31 [place] # (Auto) 0.4 x10^3/uL (0.3-0.8) 07/02/24 05:31 Eos # (Auto) 0.2 x10^3/uL (0.0-0.2) 07/02/24 05:31 Baso # (Auto) 0.0 X10^3/uL (0.0-0.1) 07/02/24 05:31 Absolute Nucleated RBC 0.1 /100WBC 07/02/24 05:31 Sodium 143 mmol/L (136-145) 07/02/24 05:31 Corrected Sodium TNP 07/02/24 05:31 Potassium 4.0 mmol/L (3.5-5.1) 07/02/24 05:31 Chloride 108 mmol/L (98-107) H 07/02/24 05:31 Carbon Dioxide 28.5 mmol/L (21-32) 07/02/24 05:31 BUN 8 mg/dL (7-18) 07/02/24 05:31 Creatinine 1.01 mg/dL (0.55-1.02) 07/02/24 05:31 Est GFR (MDRD) Af Amer > 60 (>60) 07/02/24 05:31 Est GFR (MDRD) Non-Af 56 (>60) L 07/02/24 05:31 Glucose 92 mg/dL (65-99) 07/02/24 05:31 Calcium 9.5 mg/dL (8.5-10.1) 07/02/24 05:31 Corrected Calcium 10.5 mg/dL (8.5-10.1) H 07/02/24 05:31 Total Bilirubin 0.40 mg/dL (0.2-1.0) 07/02/24 05:31 AST 18 Units/L (15-37) 07/02/24 05:31 ALT 12 Units/L (12-78) 07/02/24 05:31 Alkaline Phosphatase 63 Units/L (46-116) 07/02/24 05:31 C-Reactive Protein 3.20 mg/L (0-3.0) H 06/30/24 15:57 Total Protein 6.6 g/dL (6.4-8.2) 07/02/24 05:31 Albumin 2.8 g/dL (3.4-5.0) L 07/02/24 05:31 Globulin 3.8 g/dL (2.5-4.5) 07/02/24 05:31 Albumin/Globulin Ratio 0.7 Ratio (1.1-2.1) L 07/02/24 05:31 Reason For Visit: CELLULITIS, LEG SWELLING Discharge Diagnosis All Active Problems (Updated 07/01/24 @ 10:50 by Marsha Garcia MD) CKD (chronic kidney disease) (Chronic) CVA (cerebral vascular accident) (Chronic) Cellulitis (Acute) Decubitus ulcer (Acute) Non-STEMI (non-ST elevated myocardial infarction) (Acute) Tachycardia (Acute) Esophageal dysmotilities (Acute) Corneal abrasion, right (Acute) Kidney stone on left side (Acute) Left flank pain (Acute) Foreign body in ear, bilateral (Acute) Kyphoscoliosis (Acute) Edema extremities (Acute) PVD (peripheral vascular disease) (Chronic) Pneumonia (Acute) Abnormal cardiac enzyme level (Acute) Generalized weakness (Acute) Congestive heart failure (Acute) Tachycardia (Acute) Hypotension (Acute) Contusion of face (Acute) Sinusitis chronic, sphenoidal (Acute) Abrasion forearm (Acute) Transient ischemic attack (Acute) Foreign body in eye (Acute) Gastroesophageal reflux disease with esophagitis (Chronic) Plan of Treatment: Continue with present treatment and follow up plan. Pt is to keep follow up appointment as instructed and take medications as ordered. Discharge Medications Discharge Medications: naproxen [From Naprosyn] Allergy (Severe, Verified 06/18/24 09:46) facial and throat swelling CONTINUE taking the following medications allopurinol 100 mg tablet 100 mg PO DAILY 06/30/24 [History] apixaban 2.5 mg tablet 2.5 mg PO BID 06/30/24 [History] biotin 10,000 mcg capsule 10,000 mcg PO DAILY 06/30/24 [History] dapagliflozin propanediol 10 mg tablet 10 mg PO DAILY 06/30/24 [History] dextroamphetamine-amphetamine 30 mg tablet (Adderall) 30 mg PO BID 06/30/24 [History] furosemide 20 mg tablet 20 mg PO DAILY 06/30/24 [History] levothyroxine 88 mcg tablet 88 mcg PO DAILY 06/30/24 [History] melatonin 5 mg tablet 10 mg PO HS 06/30/24 [History] multivit-minerals no.73-iron fumarate 106 mg-folic acid 1 mg capsule (Hemocyte- Plus) 1 cap PO .THREETIMESAWEEK 06/30/24 [History] omeprazole 40 mg capsule,delayed release 40 mg PO DAILY 06/30/24 [History] oxycodone-acetaminophen 5 mg-325 mg tablet 1 tab PO TID PRN Pain, Severe 06/30/24 [History] sennosides 25 mg tablet 25 mg PO HS 06/30/24 [History] New Prescriptions clindamycin HCl 300 mg capsule 300 mg PO TID 10 days #30 caps 07/02/24 [Rx] Discharge Plan Discharge Plan Patient Disposition: 01 HOME, SELF-CARE Condition: Stable Health Concerns: Post Hospitalization: new medications and changes needed to prevent readmission or further decline. Pt educated and given instructions on all concerns. Care Plan Goals: Problem: Pain/Alteration in Comfort Goal: Improve/ Resolve Pain; Achieve Pain Tolerance Instructions: Take pain medications as prescribed. Contact your primary care provider if your pain is unrelieved or worsens. Follow up with primary care provider as directed. Plan of Treatment: Continue with present treatment and follow up plan. Pt is to keep follow up appointment as instructed and take medications as ordered. Prescriptions: New clindamycin HCl 300 mg Capsule 300 mg PO TID 10 Days Qty: 30 0RF Continued cyclobenzaprine 5 mg tablet 5 mg PO QHS PRN (Reason: muscle relaxation for legs) montelukast 10 mg tablet 10 mg PO QDAY gabapentin 300 MG capsule 300 mg PO TID rosuvastatin [Crestor] 10 MG tablet 10 mg PO HS Qty: 0 0RF allopurinol 100 mg Tablet 100 mg PO DAILY omeprazole 40 mg Capsule,Delayed Release(Dr/Ec) 40 mg PO DAILY oxycodone-acetaminophen 5-325 mg Tablet 1 tab PO TID PRN (Reason: Pain, Severe) furosemide 20 mg Tablet 20 mg PO DAILY apixaban 2.5 mg Tablet 2.5 mg PO BID dapagliflozin propanediol 10 mg Tablet 10 mg PO DAILY dextroamphetamine-amphetamine [Adderall] 30 mg Tablet 30 mg PO BID Rx Instructions: administer doses at least 4-6 hours apart levothyroxine 88 mcg Tablet 88 mcg PO DAILY biotin 10,000 mcg Capsule 10,000 mcg PO DAILY sennosides 25 mg Tablet 25 mg PO HS melatonin 5 mg Tablet 10 mg PO HS Hemocyte-Plus 106 mg iron- 1 mg Capsule 1 cap PO .THREETIMESAWEEK dextroamphetamine-amphetamine [Adderall] 30 mg Tablet 30 mg PO BID cholecalciferol (vitamin D3) [Vitamin D3] 125 mcg (5,000 unit) Tablet 125 mcg PO DAILY potassium chloride 10 MEQ capsule, extended release 10 meq PO DAILY Orders to Discharge Patient Discharge Orders: Discharge (Routine); Ordered 07/02/24 Ordered By: Reginaldo Freire Follow ups/Referrals Follow ups/Referrals: Michela Wilder [Primary Care Provider] - 07/08/24 11:00 am Instructions Instructions: Cellulitis, Adult, Edema, [id number] Activity Restrictions/Additional Instructions: Take an over the counter Probiotic daily for 10 days. Stand Alone Forms: Find Help Web Site, Post Hospital Follow Up Care
== END 2024-07-02 10:20 | disposition home or self-care (01) ==
LOC: MED/SURG
PROVIDERS: ADMIT Internal Medicine; ATTEND Internal Medicine
DX: K21.00 Gastro-esophageal reflux disease with esophagitis, without bleeding; R79.82 Elevated C-reactive protein (CRP); L03.115 Cellulitis of right lower limb; I73.89 Other specified peripheral vascular diseases; F41.8 Other specified anxiety disorders; N18.9 Chronic kidney disease, unspecified; Z86.73 Personal history of transient ischemic attack (TIA), and cerebral infarction without residual deficits; I12.9 Hypertensive chronic kidney disease with stage 1 through stage 4 chronic kidney disease, or unspecified chronic kidney disease; E78.5 Hyperlipidemia, unspecified; E03.8 Other specified hypothyroidism